=== PATIENT | female | born 1965 | race Caucasian/White ===

== ENCOUNTER 2017-05-28 14:43 | Emergency (ER) | payer MEDICAID ==
[2017-05-28] MEDS ORDERED: Sodium Chloride 0.9% 10 ML Syringe FLUSH PRN (15:24)
--- NOTE | 2017-05-28 15:34 | EDM.PDOC ---
ED HPI GENERAL MEDICAL PROBLEM - General Chief Complaint: Abdominal Pain Stated Complaint: ABDOMINAL PAIN/NAUSEA Time Seen by Provider: 05/28/17 15:08 Source of Information: Reports: Patient History Limitations: Reports: No Limitations - History of Present Illness INITIAL COMMENTS - FREE TEXT/NARRATIVE: 52 year old female presents for evaluation and treatment of abdominal pain and shortness of breath. Patient reports she's been coughing, wheezing short of breath since starting April 21 around when she started a new job. Patient reports that she has been around dogs and urine feces frequently at her apartment. Patient also report she has been around black mold. Patient reports that she was seen in the clinic in [place] on she was prescribed an albuterol inhaler and a Z-Matthew. Her symptoms improved with the medications but once her Z-Matthew was over her symptoms return. On May 21 she called the ambulance. She was evaluated and was told that she had pneumonia in her left lobe. She was not transported at that time. Patient questions if she still has pneumonia. She denies any chest pain. She states that she feels she cannot get air out. Reports over the last 3 days she has felt weak in her normal legs have felt "wobbly" and "shaky." Patient is a current every day smoker. Smokes a 1 pack a day. Patient also reports upper abdominal pain located in the right upper quadrant. This is been going on for the last couple days. She reports nausea and vomiting as well as left days. Reports 3 episodes of emesis. Reports diarrhea on-and-off states but has this nearly every day. She is unsure she's had any fevers as she has not taken her temperature. She also reports chills. Patient also complains of low back pain. Past medical history of GERD, anxiety, depression and hypertension. Right Upper Abdominal Pain Score (Numeric/FACES): 3 - Related Data Allergies Allergy/AdvReac Type Severity Reaction Status Date / Time shellfish derived Allergy Hives Verified 05/28/17 14:57 Home Meds: Home Meds Albuterol [IJP: Ventolin HFA] 2 puff INH Q4HR PRN #18 gm 05/28/17 [Rx] Omeprazole 20 mg PO ONETIME #30 cap.sr 05/28/17 [Rx] Past Medical History - Past Health History Medical/Surgical History: Denies Medical/Surgical History Cardiovascular History: Reports: Hypertension Other Cardiovascular History: HTN only for 1 year- resolved Gastrointestinal History: Reports: GERD Other Gastrointestinal History: Acid reflux- resolved Psychiatric History: Reports: Anxiety, Depression Other Psychiatric History: Anxiety/depression- resolved/no longer medicated for Social & Family History - Family History Family Medical History: Noncontributory - Tobacco Use Smoking Status *Q: Current Every Day Smoker Years of Tobacco use: 25 Packs/Tins Daily: 1 - Recreational Drug Use Recreational Drug Use: No ED ROS GENERAL - Review of Systems Review Of Systems: See Below Constitutional: Reports: Chills, Decreased Appetite. Denies: Fever ( questionable) HEENT: Reports: Throat Pain. Denies: Ear Pain Respiratory: Reports: Shortness of Breath, Cough Cardiovascular: Denies: Chest Pain GI/Abdominal: Reports: Abdominal Pain (RUQ), Diarrhea, Nausea, Vomiting (x3) : Reports: No Symptoms Musculoskeletal: Reports: Back Pain (low back) Neurological: Reports: Headache ED EXAM, GI/ABD - Physical Exam Exam: See Below Exam Limited By: No Limitations General Appearance: Alert, WD/WN, No Apparent Distress Ears: Normal External Exam, Normal Canal, Hearing Grossly Normal, Normal TMs Nose: Normal Inspection Throat/Mouth: Normal Inspection, Normal Lips, Normal Voice, No Airway Compromise Neck: Normal Inspection, Supple Respiratory/Chest: No Respiratory Distress, Lungs Clear, Normal Breath Sounds Cardiovascular: Normal Peripheral Pulses, Regular Rate, Rhythm, No Murmur GI/Abdominal Exam: Normal Bowel Sounds, Tender (RUQ, epigastric) Neurological: Alert, Oriented, Normal Cognition Psychiatric: Normal Affect, Normal Mood Skin Exam: Warm, Dry, Normal Color Course - Vital Signs Last Recorded V/S: Last Vital Signs Temp 36.6 C 05/28/17 14:49 Pulse 92 05/28/17 18:50 Resp 16 05/28/17 18:50 BP 151/107 H 05/28/17 18:50 Pulse Ox 96 05/28/17 18:50 - Orders/Labs/Meds Labs: Laboratory Tests 05/28/17 05/28/17 05/28/17 Range/Units 15:35 15:45 15:45 WBC 4.94 (3.98-10.04) K/mm3 RBC 4.77 (3.98-5.22) M/mm3 Hgb 14.7 (11.2-15.7) gm/L Hct 44.1 (34.1-44.9) % MCV 92.5 (79.4-94.8) fl MCH 30.8 (25.6-32.2) pg MCHC 33.3 (32.2-35.5) g/dl RDW Std Deviation 45.1 (36.4-46.3) fL Plt Count 137 L (182-369) K/mm3 MPV 10.7 (9.4-12.3) fl Neutrophils % (Manual) 67 H (40-60) % Band Neutrophils % 0 (0-10) % Lymphocytes % (Manual) 29 (20-40) % Atypical Lymphs % 0 % Monocytes % (Manual) 4 (2-10) % Eosinophils % (Manual) 0 L (0.7-5.8) % Basophils % (Manual) 0 L (0.1-1.2) Platelet Estimate Adequate RBC Morph Comment Normal Sodium 144 (136-145) mEq/L Potassium 3.4 L (3.5-5.1) mEq/L Chloride 104 (98-107) mEq/L Carbon Dioxide 24 (21-32) mEq/L Anion Gap 19.4 H (5-15) BUN 7 (7-18) mg/dL Creatinine 0.8 (0.55-1.02) mg/dL Est Cr Clr Drug Dosing 74.86 mL/min Estimated GFR (MDRD) > 60 (>60) mL/min BUN/Creatinine Ratio 8.8 L (14-18) Glucose 103 (74-106) mg/dL Calcium 9.8 (8.5-10.1) mg/dL Total Bilirubin 0.3 (0.2-1.0) mg/dL AST 163 H (15-37) U/L ALT 172 H (14-59) U/L Alkaline Phosphatase 96 (46-116) U/L C-Reactive Protein < 0.2 (<1.0) mg/dL Total Protein 8.0 (6.4-8.2) g/dl Albumin 4.1 (3.4-5.0) g/dl Globulin 3.9 gm/dL Albumin/Globulin Ratio 1.1 (1-2) Lipase 81 (73-393) U/L TSH 3rd Generation (0.358-3.74) uIU/mL Urine Color Light yellow (Yellow) Urine Appearance Clear (Clear) Urine pH 6.5 (5.0-8.0) Ur Specific [place] 1.010 (1.005-1.030) Urine Protein Negative (Negative) Urine Glucose (UA) Negative (Negative) Urine Ketones Negative (Negative) Urine Occult Blood 1+ H (Negative) Urine Nitrite Negative (Negative) Urine Bilirubin Negative (Negative) Urine Urobilinogen 0.2 (0.2-1.0) Ur Leukocyte Esterase Negative (Negative) Urine RBC 0-5 (0-5) /hpf Urine WBC 0-5 (0-5) /hpf Ur Epithelial Cells 0-5 (0-5) /hpf Urine Bacteria Rare (FEW) /hpf Urine Mucus Not seen (FEW) /hpf Ethyl Alcohol 0.08 (0.00) gm% 05/28/17 Range/Units 15:45 WBC (3.98-10.04) K/mm3 RBC (3.98-5.22) M/mm3 Hgb (11.2-15.7) gm/L Hct (34.1-44.9) % MCV (79.4-94.8) fl MCH (25.6-32.2) pg MCHC (32.2-35.5) g/dl RDW Std Deviation (36.4-46.3) fL Plt Count (182-369) K/mm3 MPV (9.4-12.3) fl Neutrophils % (Manual) (40-60) % Band Neutrophils % (0-10) % Lymphocytes % (Manual) (20-40) % Atypical Lymphs % % Monocytes % (Manual) (2-10) % Eosinophils % (Manual) (0.7-5.8) % Basophils % (Manual) (0.1-1.2) Platelet Estimate RBC Morph Comment Sodium (136-145) mEq/L Potassium (3.5-5.1) mEq/L Chloride (98-107) mEq/L Carbon Dioxide (21-32) mEq/L Anion Gap (5-15) BUN (7-18) mg/dL Creatinine (0.55-1.02) mg/dL Est Cr Clr Drug Dosing mL/min Estimated GFR (MDRD) (>60) mL/min BUN/Creatinine Ratio (14-18) Glucose (74-106) mg/dL Calcium (8.5-10.1) mg/dL Total Bilirubin (0.2-1.0) mg/dL AST (15-37) U/L ALT (14-59) U/L Alkaline Phosphatase (46-116) U/L C-Reactive Protein (<1.0) mg/dL Total Protein (6.4-8.2) g/dl Albumin (3.4-5.0) g/dl Globulin gm/dL Albumin/Globulin Ratio (1-2) Lipase (73-393) U/L TSH 3rd Generation 2.594 (0.358-3.74) uIU/mL Urine Color (Yellow) Urine Appearance (Clear) Urine pH (5.0-8.0) Ur Specific [place] (1.005-1.030) Urine Protein (Negative) Urine Glucose (UA) (Negative) Urine Ketones (Negative) Urine Occult Blood (Negative) Urine Nitrite (Negative) Urine Bilirubin (Negative) Urine Urobilinogen (0.2-1.0) Ur Leukocyte Esterase (Negative) Urine RBC (0-5) /hpf Urine WBC (0-5) /hpf Ur Epithelial Cells (0-5) /hpf Urine Bacteria (FEW) /hpf Urine Mucus (FEW) /hpf Ethyl Alcohol (0.00) gm% Meds: Medications Discontinued Medications Generic Name Dose Route Start Last Admin Trade Name Freq PRN Reason Stop Dose Admin Al Hydroxide/Mg Hydroxide 30 0 ml 05/28/17 18:23 05/28/17 18:53 ml/ Lidocaine HCl 15 ml PO 05/28/17 18:24 45 ml ONETIME ONE Administration Famotidine 20 mg 05/28/17 18:23 05/28/17 18:50 Pepcid IVPUSH 05/28/17 18:24 20 mg ONETIME ONE Administration Nicotine 21 mg 05/28/17 16:37 05/28/17 16:46 Habitrol TRDERM 05/28/17 16:38 21 mg ONETIME ONE Administration Sodium Chloride 10 ml 05/28/17 15:24 05/28/17 15:45 Saline Flush FLUSH 10 ml ASDIRECTED PRN Administration Keep Vein Open - Radiology Interpretation Free Text/Narrative:: Chest: Two views of the chest were obtained. Comparison: No prior study. Heart size and mediastinum are normal. Lungs are clear. Bony structures show minimal scoliosis within the spine. Impression: 1. Nothing acute is identified on two-view chest x-ray. - Re-Assessments/Exams Free Text/Narrative Re-Assessment/Exam: 05/28/17 16:40 Patient would like a nicotine patch. Smokes a pack a day. 05/28/17 18:24 Influenza returned negative. Strep returned negative. I reviewed the labs and imaging with the patinet. I feel the abdominal pain is likely from reflux. I will give her GI cocktail and Pepcid here in the ER. I will and plan start her on something like a PPI. I feel her shortness of breath is likely COPD. I educated her I cannot confirm this suspicion. She needs further testing such as pulmonary function test. 05/28/17 19:40 Pain is improved with the GI cocktail and Pepcid. She is anxious to go home. We will discharge her home at this time. Discharge instructions as documented. Departure - Departure Time of Disposition: 19:44 Disposition: Home, Self-Care 01 Condition: Fair Clinical Impression: Shortness of breath, GERD (gastroesophageal reflux disease) - Discharge Information Prescriptions: Albuterol [IJP: Ventolin HFA] 2 puff INH Q4HR PRN #18 gm PRN Reason: Shortness Of Breath Omeprazole 20 mg PO ONETIME #30 cap.sr Instructions: Shortness of Breath, [id number], Gastroesophageal Reflux Disease, Adult Referrals: PCP,None [Primary Care Provider] - Forms: ED Department Discharge Additional Instructions: Take the omeprazole 1 cap daily. Take the albuterol 1-2 puffs every 4-6 hours as needed for shortness of breath. We recommend that you stop drinking alcohol. you will have a happier and healthier life if you stopped drinking alcohol. Alcohol also worked since reflux. Also recommended to stop smoking. Smoking is the only way to prevent COPD. It is very possible that you have early COPD and will require further testing to confirm this. Follow-up with Matty Larios or Rabia Rapp at the [facility] in 2-3 weeks. Please return to the ER if your symptoms change or worsen.
[2017-05-28] MEDS ORDERED: Nicotine 21 MG/24 Hr Patch TRDERM ONE (16:37)
--- NOTE | 2017-05-28 17:22 | CR ---
Chest: Two views of the chest were obtained. Comparison: No prior study. Heart size and mediastinum are normal. Lungs are clear. Bony structures show minimal scoliosis within the spine. Impression: 1. Nothing acute is identified on two-view chest x-ray. Diagnostic code #1
[2017-05-28] MEDS ORDERED: Famotidine 20 MG/2 ML SDV IVPUSH ONE (18:23)
[2017-05-28] MEDS ORDERED: Alum Hydrox/Mag Hydrox/Simeth 30 ML, Lidocaine 2% 15 ML PO ONE ×2 (18:23)
== END 2017-05-28 20:00 | disposition home or self-care (01) ==
LOC: JD.ED 14:43
DX: K21.9 Gastro-esophageal reflux disease without esophagitis (principal); R06.02 Shortness of breath; I10 Essential (primary) hypertension; F17.210 Nicotine dependence, cigarettes, uncomplicated; Z91.013 Allergy to seafood
CPT/HCPCS: 36415; 71046; 80053; 81001; 83690; 84443; 85025; 86140; 87081; 87430; 87804; 96374; 99284; A9270; G0480; J7050

== ENCOUNTER 2017-07-07 01:11 | Emergency (ER) | payer MEDICAID ==
--- NOTE | 2017-07-07 01:38 | EDM.PDOC ---
ED HPI GENERAL MEDICAL PROBLEM - General Chief Complaint: Cardiovascular Problem Stated Complaint: [facility] Time Seen by Provider: 07/07/17 01:21 Source of Information: Reports: Patient, EMS History Limitations: Reports: No Limitations - History of Present Illness INITIAL COMMENTS - FREE TEXT/NARRATIVE: This is a 52-year-old female. She was recently placed on some lisinopril 20 mg by her physician because of elevated blood pressure. Apparently the lisinopril did not help and so she was placed on some hydrochlorothiazide. The patient states that she takes a full 25 mg if her blood pressure is up in the morning but only 12.5 mg of the blood pressure is low in the morning. Apparently sometime this evening the boyfriend noted she had a blood pressure of 77. She was brought here to the ER for evaluation. When she arrived her blood pressure was 108/69. She states she didn't realize that the hydrochlorothiazide was a fluid pill and she hasn't noticed urinating a lot. She denies any colds or coughs no fever no chills. She did vomit in the back of the ambulance but she is feeling fine now. She denies any other acute symptoms. - Related Data Allergies Allergy/AdvReac Type Severity Reaction Status Date / Time shellfish derived Allergy Hives Verified 07/07/17 01:21 tuberculin,PPD,multi-puncture Allergy Difficulty Verified 07/07/17 01:22 Breathing Home Meds: Home Meds Albuterol [IJP: Ventolin HFA] 2 puff INH DAILY PRN 07/07/17 [History] HCTZ/Propranolol [Inderal HCT 25-40 MG] 25 mg PO DAILY 07/07/17 [History] Lisinopril [Prinivil] 20 mg PO DAILY 07/07/17 [History] Montelukast Sodium 10 mg PO BEDTIME 07/07/17 [History] Omeprazole 20 mg PO DAILY 07/07/17 [History] Sucralfate [Carafate] 1 gm PO QID 07/07/17 [History] buPROPion [buPROPion XL] 150 mg PO DAILY 07/07/17 [History] Past Medical History - Past Health History Medical/Surgical History: Denies Medical/Surgical History Cardiovascular History: Reports: Hypertension Other Cardiovascular History: HTN only for 1 year- resolved Respiratory History: Reports: COPD Gastrointestinal History: Reports: GERD Other Gastrointestinal History: Acid reflux- resolved 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, 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: Polycystic Ovaries Psychiatric History: Reports: Anxiety, Depression Other Psychiatric History: Anxiety/depression Social & Family History - Family History Family Medical History: Noncontributory - Tobacco Use Smoking Status *Q: Current Every Day Smoker Years of Tobacco use: 25 Packs/Tins Daily: 0.5 Used Tobacco, but Quit: No - Caffeine Use Caffeine Use: Reports: None - Recreational Drug Use Recreational Drug Use: No ED ROS GENERAL - Review of Systems Review Of Systems: See Below Constitutional: Denies: Fever, Chills HEENT: Reports: No Symptoms Respiratory: Denies: Shortness of Breath, Cough Cardiovascular: Denies: Chest Pain Endocrine: Reports: No Symptoms GI/Abdominal: Reports: Nausea, Vomiting. Denies: Abdominal Pain : Reports: No Symptoms Musculoskeletal: Reports: No Symptoms Skin: Reports: No Symptoms Neurological: Reports: No Symptoms Psychiatric: Reports: No Symptoms Hematologic/Lymphatic: Reports: No Symptoms ED EXAM, GENERAL - Physical Exam Exam: See Below Exam Limited By: No Limitations General Appearance: Alert, WD/WN, No Apparent Distress Eye Exam: Bilateral Eye: Normal Inspection Ears: Normal External Exam Nose: Normal Inspection Throat/Mouth: Normal Inspection, Normal Lips, Normal Oropharynx, Normal Voice, No Airway Compromise, Other (Mucous membranes are dry) Head: Normocephalic Neck: Supple Respiratory/Chest: No Respiratory Distress, Lungs Clear, Normal Breath Sounds Cardiovascular: Regular Rate, Rhythm, No Murmur GI/Abdominal: Soft Back Exam: Full Range of Motion Extremities: Normal Inspection, Normal Range of Motion Neurological: Alert, Oriented, Normal Cognition Psychiatric: Normal Affect, Normal Mood Skin Exam: Warm, Dry Course - Vital Signs Last Recorded V/S: Last Vital Signs Temp 97.1 F 07/07/17 01:15 Pulse 76 07/07/17 01:15 Resp 18 07/07/17 01:15 BP 108/69 07/07/17 01:15 Pulse Ox 99 07/07/17 01:15 Orthostatic Blood Pressure [ 83/50 Standing] Orthostatic Blood Pressure [ 98/62 Sitting] Orthostatic Blood Pressure [ 86/57 Supine] - Orders/Labs/Meds Orders: Active Orders 24 hr Category Date Time Status Orthostatic Vital Signs [RC] ASDIRECTED Care 07/07/17 01:44 Active Orthostatic Vital Signs [RC] ASDIRECTED Care 07/07/17 04:29 Active Sodium Chloride 0.9% [Normal Saline] 1,000 ml Med 07/07/17 01:45 Active IV ASDIRECTED Medication Orders Sodium Chloride (Normal Saline) 1,000 mls @ 1,000 mls/hr IV ASDIRECTED FAVIAN Last Admin: 07/07/17 04:23 Dose: 1,000 mls/hr Infusion: 07/07/17 03:51 Dose: 1,000 mls/hr Admin: 07/07/17 02:51 Dose: 1,000 mls/hr Infusion: 07/07/17 02:41 Dose: 1,000 mls/hr Admin: 07/07/17 01:41 Dose: 1,000 mls/hr Labs: Laboratory Tests 07/07/17 07/07/17 Range/Units 01:22 01:22 WBC 7.83 (3.98-10.04) K/mm3 RBC 4.34 (3.98-5.22) M/mm3 Hgb 13.9 (11.2-15.7) gm/L Hct 40.2 (34.1-44.9) % MCV 92.6 (79.4-94.8) fl MCH 32.0 (25.6-32.2) pg MCHC 34.6 (32.2-35.5) g/dl RDW Std Deviation 45.2 (36.4-46.3) fL Plt Count 119 L (182-369) K/mm3 MPV 11.0 (9.4-12.3) fl Neut % (Auto) 61.5 (34.0-71.1) % Lymph % (Auto) 28.5 (19.3-51.7) % [place] % (Auto) 9.5 (4.7-12.5) % Eos % (Auto) 0.3 L (0.7-5.8) Baso % (Auto) 0.1 (0.1-1.2) % Neut # (Auto) 4.82 (1.56-6.13) K/mm3 Lymph # (Auto) 2.23 (1.18-3.74) K/mm3 [place] # (Auto) 0.74 H (0.24-0.36) K/mm3 Eos # (Auto) 0.02 L (0.04-0.36) K/mm3 Baso # (Auto) 0.01 (0.01-0.08) K/mm3 Sodium 126 L (136-145) mEq/L Potassium 4.3 (3.5-5.1) mEq/L Chloride 87 L (98-107) mEq/L Carbon Dioxide 22 (21-32) mEq/L Anion Gap 21.3 H (5-15) BUN 34 H (7-18) mg/dL Creatinine 2.7 H (0.55-1.02) mg/dL Est Cr Clr Drug Dosing 23.08 mL/min Estimated GFR (MDRD) 19 (>60) mL/min BUN/Creatinine Ratio 12.6 L (14-18) Glucose 103 (74-106) mg/dL Calcium 11.0 H (8.5-10.1) mg/dL Total Bilirubin 0.5 (0.2-1.0) mg/dL AST 143 H (15-37) U/L ALT 150 H (14-59) U/L Alkaline Phosphatase 92 (46-116) U/L Total Protein 8.2 (6.4-8.2) g/dl Albumin 4.3 (3.4-5.0) g/dl Globulin 3.9 gm/dL Albumin/Globulin Ratio 1.1 (1-2) Ethyl Alcohol 0.30 (0.00) gm% Meds: Medications Generic Name Dose Route Start Last Admin Trade Name Freq PRN Reason Stop Dose Admin Sodium Chloride 1,000 mls @ 1,000 mls/hr 07/07/17 01:45 07/07/17 04:23 Normal Saline IV 1,000 mls/hr ASDIRECTED FAVIAN Administration Discontinued Medications Generic Name Dose Route Start Last Admin Trade Name Freq PRN Reason Stop Dose Admin Sodium Chloride 1,000 mls @ 1,000 mls/hr 07/07/17 02:44 07/07/17 04:24 Normal Saline IV 07/07/17 03:43 Not Given ASDIRECTED ONE - Re-Assessments/Exams Free Text/Narrative Re-Assessment/Exam: 07/07/17 01:41 While she was here we did orthostatic vital signs when she first arrived. Lying down her blood pressure was 83/55 with a pulse rate of 73, sitting was 93/54 with a pulse rate of 77 and standing it was 87/60 with a pulse rate of 87. 07/07/17 04:23 Patient has received 2 L of fluids and still has not urinated and still has low blood pressures lying sitting and standing but the heart rate went only from 96- 99 from lying to standing. We will give her a third liter of fluids. 07/07/17 05:23 I have provided this patient a third liter of fluids. She states she feels much better and she got up and went to the bathroom with no difficulty and denies any dizziness or feeling lightheaded. She wants to go home. I rechecked her orthostatic vital signs lying down the blood pressure was 111/66 with a heart rate of 84, sitting it was 94/58 with a heart rate of 94 and standing it dropped to 86/64 with a heart rate of 100. During this time she denied any feelings of lightheadedness no dizziness and felt fine. I'm concerned about giving her a fourth liter but I have encouraged her to start drinking more fluids and stop drinking alcohol and stop her blood pressure medications at this time. She is to follow-up with her family doctor this week for recheck and reassessment of whether she needs blood pressure medications. Departure - Departure Time of Disposition: 05:24 Disposition: Home, Self-Care 01 Condition: Fair Clinical Impression: Dehydration, Orthostatic hypotension Alcohol intoxication Qualifiers: Complication of substance-induced condition: uncomplicated Qualified Code(s): F10.920 - Alcohol use, unspecified with intoxication, uncomplicated Referrals: PCP,None [Primary Care Provider] - Forms: ED Department Discharge Additional Instructions: You must continue to drink lots of water and juice over the next 24 hours since you were severely dehydrated, gentle activity today and over the weekend with no strenuous or prolonged activity, stop your blood pressure medications both of them, follow up with your doctor this week for reassessment of whether you will need the blood pressure medications, return to the ER if needed. - My Orders Last 24 Hours: My Active Orders 07/07/17 01:44 Orthostatic Vital Signs [RC] ASDIRECTED 07/07/17 01:45 Sodium Chloride 0.9% [Normal Saline] 1,000 ml IV ASDIRECTED 07/07/17 04:29 Orthostatic Vital Signs [RC] ASDIRECTED - Assessment/Plan Last 24 Hours: My Active Orders 07/07/17 01:44 Orthostatic Vital Signs [RC] ASDIRECTED 07/07/17 01:45 Sodium Chloride 0.9% [Normal Saline] 1,000 ml IV ASDIRECTED 07/07/17 04:29 Orthostatic Vital Signs [RC] ASDIRECTED
[2017-07-07] MEDS: Sodium Chloride 0.9% 1,000 ML IV SCH ×3 (01:41→04:23)
[2017-07-07] MEDS ORDERED: Sodium Chloride 0.9% 1,000 ML IV ONE (02:44)
== END 2017-07-07 06:30 | disposition home or self-care (01) ==
LOC: JD.ED 01:11
DX: I95.1 Orthostatic hypotension (principal); E86.0 Dehydration; F10.120 Alcohol abuse with intoxication, uncomplicated; Y90.0 Blood alcohol level of less than 20 mg/100 ml; J44.9 Chronic obstructive pulmonary disease, unspecified; K21.9 Gastro-esophageal reflux disease without esophagitis; F41.9 Anxiety disorder, unspecified; F32.9 Major depressive disorder, single episode, unspecified; F17.210 Nicotine dependence, cigarettes, uncomplicated; Z88.8 Allergy status to other drugs, medicaments and biological substances; Z79.899 Other long term (current) drug therapy; Z91.013 Allergy to seafood
CPT/HCPCS: 36415; 80053; 85025; 96360; 96361; 99285; G0480; J7040; 99283

== ENCOUNTER 2017-07-21 20:20 | Emergency (ER) | payer MEDICAID ==
[2017-07-21] MEDS ORDERED: Sodium Chloride 0.9% 1,000 ML IV ONE (22:01)
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
[2017-07-22] MEDS ORDERED: Sodium Chloride 0.9% 10 ML Syringe FLUSH PRN ×2 (01:26)
[2017-07-22] MEDS ORDERED: Iopamidol 755 Mg/ML 100 ML Bottle IVPUSH ONE ×2 (01:26)
[2017-07-22] MEDS ORDERED: Sodium Chloride 0.9% 100 ML IV SCH ×2 (01:30)
[2017-07-22] MEDS ORDERED: Sodium Chloride 0.9% 1,000 ML IV SCH (01:30)
--- NOTE | 2017-07-22 16:52 | CT ---
CT chest Technique: Multiple axial sections through the chest were obtained. Study performed as a pulmonary angiogram protocol and intravenous contrast was therefore utilized. Findings: Pulmonary arteries are well-opacified. No filling defects are seen to indicate pulmonary embolism. Fatty infiltration is seen throughout the liver. Mediastinum and hilar regions show no adenopathy or mass. Mild coronary artery calcification is seen. Mediastinum and hilar regions show no adenopathy or mass. No axillary adenopathy is seen. Lungs show no acute parenchymal change. Impression: 1. No findings of pulmonary embolism. 2. Severe fatty infiltration throughout the liver. 3. Other incidental findings as noted above. Diagnostic code #3 Agree with preliminary report issued by [facility] ([facility] preliminary report dictated on 07/22/17, 3:22 AM Central Time)
--- NOTE | 2017-07-22 16:52 | CR ---
Chest: Two views of the chest were obtained. Comparison: Prior chest x-ray of 05/28/17. Heart size is normal. Mild tortuosity of the thoracic aorta is seen. Lungs are clear. Bony structures are within normal limits for the patient's age. Impression: 1. Nothing acute is identified on two-view chest x-ray. Diagnostic code #1
== END 2017-07-22 04:25 | disposition home or self-care (01) ==
LOC: JD.ED 20:20
DX: F10.20 Alcohol dependence, uncomplicated (principal); I95.1 Orthostatic hypotension; D72.819 Decreased white blood cell count, unspecified; D69.6 Thrombocytopenia, unspecified; R03.0 Elevated blood-pressure reading, without diagnosis of hypertension; R74.0 Nonspecific elevation of levels of transaminase and lactic acid dehydrogenase [LDH]; K21.9 Gastro-esophageal reflux disease without esophagitis; F32.9 Major depressive disorder, single episode, unspecified; F17.210 Nicotine dependence, cigarettes, uncomplicated; Z91.013 Allergy to seafood; Z79.899 Other long term (current) drug therapy
CPT/HCPCS: 36415; 71046; 71275; 80053; 84484; 85025; 85379; 85610; 85730; 93005; 96360; 96361; 99285; J7030; J7040; J7050; Q9967; 93010; 99284-25

== ENCOUNTER 2018-05-07 00:48 | Emergency (ER) | payer MEDICAID ==
--- NOTE | 2018-05-07 03:26 | ER ---
REASON FOR EMERGENCY ROOM VISIT: For medical clearance for nursing home. HISTORY OF PRESENT ILLNESS: This 53-year-old woman was brought in by law enforcement officers for medical clearance for her to be kept in nursing home. Apparently, she was found to be intoxicated almost to the point of being unarousable. She was picked up by police officers and apparently resisted to the extent that they felt that she should be incarcerated overnight. She does have a history of multiple admissions for alcohol detox and alcohol rehab programs in the past with multiple relapses. She has also had alcohol withdrawal seizures in the past. She was brought in, combative, and yelling profanities, etc. She denies any past medical history, but her medical record indicates that she has history of hypertension, COPD, GERD, urinary retention, and polycystic ovaries as well as a prior history of addiction, anxiety, and depression. She denies any recent illicit drug use such as marijuana, opiates, or cocaine. CURRENT MEDICATIONS: Reviewed. See electronic medical record. PHYSICAL EXAMINATION: GENERAL: She is combative and resisting any attempts to examine her at this time. VITAL SIGNS: She is afebrile, pulse rate is 104, blood pressure 110/91, respiratory rate 18, O2 saturations 98%. HEENT: Her eyes are bloodshot. She has the odor of alcohol on her breath. She does focus and answers questions reasonably appropriately, although she is not being truthful. No evidence of external trauma. NECK: Supple and nontender. CHEST: Clear to auscultation. CARDIAC: Regular rate without murmur. ABDOMEN: Soft. EXTREMITIES: No evidence of trauma. No tenderness or pain. IMPRESSION: Alcohol intoxication. PLAN: She is medically cleared to be transported to nursing home. MMODAL /[id number]
== END 2018-05-07 01:03 ==
LOC: JD.ED 00:48
DX: F10.929 Alcohol use, unspecified with intoxication, unspecified (principal); Z02.89 Encounter for other administrative examinations; Y90.7 Blood alcohol level of 200-239 mg/100 ml
CPT/HCPCS: 99282; 99284

== ENCOUNTER 2018-07-06 09:02 | Inpatient (IN) | payer MEDICAID ==
--- NOTE | 2018-07-06 09:29 | EDM.PDOCBH ---
ED HPI GENERAL MEDICAL PROBLEM - General Chief Complaint: Drug or Alcohol Abuse Stated Complaint: DETOX Time Seen by Provider: 07/06/18 09:28 Source of Information: Reports: Patient, RN Notes Reviewed - History of Present Illness INITIAL COMMENTS - FREE TEXT/NARRATIVE: Patient states she has been drinking whiskey for about a month, states she had been dry for awhile before that. Now if she doesn't drink she gets the shakes, feels sick so keeps drinking to avoid those sx. Looking for help with detox. Has been through treatment many times before. Went through a medical detox at this hospital about 4 months ago. She states that when she does go through withdrawal she experiences hallucinations, does go into "DVT's which is why she keeps drinking and now her at this time to get help to stop. Treatments DERMATOLOGY SALES REPRESENTATIVE: Reports: Other (see below) Other Treatments DERMATOLOGY SALES REPRESENTATIVE: ETOH Right Lower Abdomen Pain Score (Numeric/FACES): 6 - Related Data Allergies Allergy/AdvReac Type Severity Reaction Status Date / Time shellfish derived Allergy Hives Verified 07/06/18 09:28 tuberculin,PPD,multi-puncture Allergy Difficulty Verified 07/06/18 09:28 Breathing Home Meds: Home Meds Lisinopril [Prinivil] 20 mg PO DAILY 07/07/17 [History] Montelukast Sodium 10 mg PO BEDTIME 07/07/17 [History] Omeprazole 20 mg PO DAILY 07/07/17 [History] Sucralfate [Carafate] 1 gm PO QID PRN 07/07/17 [History] Past Medical History - Past Health History Medical/Surgical History: Denies Medical/Surgical History Cardiovascular History: Reports: Hypertension Other Cardiovascular History: HTN only for 1 year- resolved Respiratory History: Reports: COPD Gastrointestinal History: Reports: GERD Other Gastrointestinal History: Acid reflux- resolved 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, 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: Reports: Polycystic Ovaries Musculoskeletal History: Reports: Arthritis Psychiatric History: Reports: Addiction, Anxiety, Depression Other Psychiatric History: Anxiety/depression Social & Family History - Family History Family Medical History: Noncontributory - Caffeine Use Caffeine Use: Reports: None - Living Situation & Occupation Living situation: Reports: , with Significant Other, Other (with 2 friends) Occupation: Unemployed ED ROS GENERAL - Review of Systems Review Of Systems: See Below Constitutional: Denies: Fever, Chills, Diaphoresis HEENT: Denies: Throat Pain Respiratory: Denies: Shortness of Breath Cardiovascular: Denies: Chest Pain GI/Abdominal: Reports: Abdominal Pain (mild intermitent), Diarrhea, Decreased Appetite. Denies: Vomiting Musculoskeletal: Reports: No Symptoms Skin: Reports: No Symptoms Neurological: Reports: Dizziness, Other (tremor when not drinking). Denies: Trouble Speaking, Difficulty Walking, Weakness ED EXAM, BEHAVIORAL HEALTH - Physical Exam Exam: See Below General Appearance: Alert, Mild Distress, Other (mild tremor) Eye Exam: Bilateral Eye: PERRL Throat/Mouth: Normal Inspection, Normal Oropharynx Head: Atraumatic. No: Facial Swelling Neck: Normal Inspection, Supple Respiratory/Chest: No Respiratory Distress, Lungs Clear, Normal Breath Sounds Cardiovascular: Regular Rate, Rhythm GI/Abdominal: Soft, Non-Tender. No: Guarding Neurological: Alert, No Motor/Sensory Deficits, Tremor (mild bilat) Skin Exam: Warm, Dry, Normal color COURSE, BEHAVIORAL HEALTH COMP - Course Vital Signs: Last Vital Signs Temp 97.6 F 07/06/18 09:19 Pulse 95 07/06/18 09:19 Resp 14 07/06/18 09:19 BP 159/111 H 07/06/18 09:19 Pulse Ox 98 07/06/18 09:19 Orders, Labs, Meds: Active Orders 24 hr Category Date Time Status Peripheral IV Care [RC] . DIRECTED Care 07/06/18 09:36 Active Sodium Chloride 0.9% [Normal Saline] 1,000 ml Med 07/06/18 09:45 Active IV ONETIME Sodium Chloride 0.9% [Normal Saline] 1,000 ml Med 07/06/18 13:15 Active IV ONETIME Sodium Chloride 0.9% [Saline Flush] Med 07/06/18 09:36 Active 10 ml FLUSH ASDIRECTED PRN Peripheral IV Insertion Adult [OM.PC] Stat Oth 07/06/18 09:35 Ordered Medication Orders Sodium Chloride (Normal Saline) 1,000 mls @ 999 mls/hr IV ONETIME FAVIAN Last Admin: 07/06/18 09:54 Dose: 999 mls/hr Sodium Chloride (Normal Saline) 1,000 mls @ 999 mls/hr IV ONETIME FAVIAN Sodium Chloride (Saline Flush) 10 ml FLUSH ASDIRECTED PRN PRN Reason: Keep Vein Open Last Admin: 07/06/18 09:54 Dose: 10 ml Laboratory Tests 07/06/18 07/06/18 Range/Units 09:50 09:50 WBC 2.83 L (3.98-10.04) K/mm3 RBC 4.72 (3.98-5.22) M/mm3 Hgb 14.1 (11.2-15.7) gm/L Hct 42.6 (34.1-44.9) % MCV 90.3 (79.4-94.8) fl MCH 29.9 (25.6-32.2) pg MCHC 33.1 (32.2-35.5) g/dl RDW Std Deviation 47.2 H (36.4-46.3) fL Plt Count 56 L (182-369) K/mm3 MPV 11.1 (9.4-12.3) fl Neut % (Auto) 67.8 (34.0-71.1) % Lymph % (Auto) 19.4 (19.3-51.7) % [place] % (Auto) 11.3 (4.7-12.5) % Eos % (Auto) 0.4 L (0.7-5.8) Baso % (Auto) 1.1 (0.1-1.2) % Neut # (Auto) 1.92 (1.56-6.13) K/mm3 Lymph # (Auto) 0.55 L (1.18-3.74) K/mm3 [place] # (Auto) 0.32 (0.24-0.36) K/mm3 Eos # (Auto) 0.01 L (0.04-0.36) K/mm3 Baso # (Auto) 0.03 (0.01-0.08) K/mm3 Manual Slide Review Abnormal smear Sodium 139 (136-145) mEq/L Potassium 3.7 (3.5-5.1) mEq/L Chloride 100 (98-107) mEq/L Carbon Dioxide 25 (21-32) mEq/L Anion Gap 17.7 H (5-15) BUN 8 (7-18) mg/dL Creatinine 0.8 (0.55-1.02) mg/dL Est Cr Clr Drug Dosing 74.02 mL/min Estimated GFR (MDRD) > 60 (>60) mL/min BUN/Creatinine Ratio 10.0 L (14-18) Glucose 146 H (74-106) mg/dL Calcium 9.0 (8.5-10.1) mg/dL Total Bilirubin 0.7 (0.2-1.0) mg/dL AST 208 H (15-37) U/L ALT 193 H (14-59) U/L Alkaline Phosphatase 111 (46-116) U/L Total Protein 7.9 (6.4-8.2) g/dl Albumin 4.2 (3.4-5.0) g/dl Globulin 3.7 gm/dL Albumin/Globulin Ratio 1.1 (1-2) Ethyl Alcohol 0.09 (0.00) gm% Medications Generic Name Dose Route Start Last Admin Trade Name Freq PRN Reason Stop Dose Admin Sodium Chloride 1,000 mls @ 999 mls/hr 07/06/18 09:45 07/06/18 09:54 Normal Saline IV 999 mls/hr ONETIME FAVIAN Administration Sodium Chloride 1,000 mls @ 999 mls/hr 07/06/18 13:15 Normal Saline IV ONETIME FAVIAN Sodium Chloride 10 ml 07/06/18 09:36 07/06/18 09:54 Saline Flush FLUSH 10 ml ASDIRECTED PRN Administration Keep Vein Open Discontinued Medications Generic Name Dose Route Start Last Admin Trade Name Freq PRN Reason Stop Dose Admin Famotidine 20 mg 07/06/18 09:36 07/06/18 09:55 Pepcid IVPUSH 07/06/18 09:37 20 mg ONETIME ONE Administration Lorazepam 1 mg 07/06/18 09:36 07/06/18 09:54 Ativan IVPUSH 07/06/18 09:37 1 mg ONETIME ONE Administration Lorazepam 1 mg 07/06/18 10:59 07/06/18 11:18 Ativan IVPUSH 07/06/18 11:00 1 mg ONETIME ONE Administration Lorazepam 1 mg 07/06/18 12:55 07/06/18 13:08 Ativan IVPUSH 07/06/18 12:56 1 mg ONETIME ONE Administration Departure - Departure Time of Disposition: 13:04 Disposition: Home, Self-Care 01 Condition: Fair Clinical Impression: Alcohol abuse Alcohol intoxication Qualifiers: Complication of substance-induced condition: uncomplicated Qualified Code(s): F10.920 - Alcohol use, unspecified with intoxication, uncomplicated - Discharge Information Referrals: Red Sin, MICHELL [Primary Care Provider] - ED Communication - Discussed Case With (1) Discussed Case With (1): Admitting Provider (Dr Preston, decision to admit at about 12:30.) - My Orders Last 24 Hours: My Active Orders 07/06/18 09:35 Peripheral IV Insertion Adult [OM.PC] Stat 07/06/18 09:36 Peripheral IV Care [RC] . DIRECTED Sodium Chloride 0.9% [Saline Flush] 10 ml FLUSH ASDIRECTED PRN 07/06/18 09:45 Sodium Chloride 0.9% [Normal Saline] 1,000 ml IV ONETIME 07/06/18 13:15 Sodium Chloride 0.9% [Normal Saline] 1,000 ml IV ONETIME - Assessment/Plan Last 24 Hours: My Active Orders 07/06/18 09:35 Peripheral IV Insertion Adult [OM.PC] Stat 07/06/18 09:36 Peripheral IV Care [RC] . DIRECTED Sodium Chloride 0.9% [Saline Flush] 10 ml FLUSH ASDIRECTED PRN 07/06/18 09:45 Sodium Chloride 0.9% [Normal Saline] 1,000 ml IV ONETIME 07/06/18 13:15 Sodium Chloride 0.9% [Normal Saline] 1,000 ml IV ONETIME
[2018-07-06] MEDS ORDERED: LORazepam 2 MG/ML SDV IVPUSH ONE ×3 (09:36→12:55)
[2018-07-06] MEDS ORDERED: Sodium Chloride 0.9% 10 ML Syringe FLUSH PRN (09:36)
[2018-07-06] MEDS ORDERED: Famotidine 20 MG/2 ML SDV IVPUSH ONE (09:36)
[2018-07-06] MEDS ORDERED: Sodium Chloride 0.9% 1,000 ML IV SCH ×2 (09:45→13:15)
--- NOTE | 2018-07-06 16:34 | PCM.HP ---
<Danelle Preston M - Last Filed: 07/06/18 16:45> H&P History of Present Illness - General Date of Service: 07/06/18 Admit Problem/Dx: Admission Diagnosis/Problem Admission Diagnosis/Problem Alcohol intoxication Right Lower Abdomen Pain Score (Numeric/FACES): 6 - Related Data Allergies/Adverse Reactions: Allergies Allergy/AdvReac Type Severity Reaction Status Date / Time shellfish derived Allergy Hives Verified 07/06/18 17:27 tuberculin,PPD,multi-puncture Allergy Difficulty Verified 07/06/18 17:27 Breathing Home Medications: Home Meds Lisinopril [Prinivil] 20 mg PO DAILY 07/07/17 [History] Montelukast Sodium 10 mg PO BEDTIME 07/07/17 [History] Omeprazole 20 mg PO DAILY 07/07/17 [History] Sucralfate [Carafate] 1 gm PO QID PRN 07/07/17 [History] Past Medical History - Past Health History Medical/Surgical History: Denies Medical/Surgical History Cardiovascular History: Reports: Hypertension Other Cardiovascular History: HTN only for 1 year- resolved Respiratory History: Reports: COPD Gastrointestinal History: Reports: GERD Other Gastrointestinal History: Acid reflux- resolved 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, 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: Reports: Polycystic Ovaries Musculoskeletal History: Reports: Arthritis Psychiatric History: Reports: Addiction, Anxiety, Depression Other Psychiatric History: Anxiety/depression Social & Family History - Family History Family Medical History: Noncontributory - Tobacco Use Smoking Status *Q: Current Every Day Smoker Years of Tobacco use: 24 Packs/Tins Daily: 0.5 Used Tobacco, but Quit: No Second Hand Smoke Exposure: No - Caffeine Use Caffeine Use: Reports: None - Alcohol Use Days Per Week of Alcohol Use: 7 Number of Drinks Per Day: 10 Total Drinks Per Week: 70 Date of Last Drink: 07/06/18 Time of Last Drink: 05:00 - Recreational Drug Use Recreational Drug Use: Yes Drug Use in Last 12 Months: Yes Recreational Drug Type: Reports: Cocaine, Methamphetamine Recreational Drug Use Frequency: Rarely - Living Situation & Occupation Living situation: Reports: , with Significant Other, Other (with 2 friends) Occupation: Unemployed H&P Review of Systems - Review of Systems: Review Of Systems: See Below Exam - Vital Signs Vital Signs: Last Vital Signs Temp 36.4 C 07/06/18 09:19 Pulse 95 07/06/18 09:19 Resp 14 07/06/18 09:19 BP 159/111 H 07/06/18 09:19 Pulse Ox 98 07/06/18 09:19 Weight: 81.647 kg - Patient Data Lab Results Last 24 hrs: Laboratory Results - last 24 hr 07/06/18 07/06/18 Range/Units 09:50 09:50 WBC 2.83 L (3.98-10.04) K/mm3 RBC 4.72 (3.98-5.22) M/mm3 Hgb 14.1 (11.2-15.7) gm/L Hct 42.6 (34.1-44.9) % MCV 90.3 (79.4-94.8) fl MCH 29.9 (25.6-32.2) pg MCHC 33.1 (32.2-35.5) g/dl RDW Std Deviation 47.2 H (36.4-46.3) fL Plt Count 56 L (182-369) K/mm3 MPV 11.1 (9.4-12.3) fl Neut % (Auto) 67.8 (34.0-71.1) % Lymph % (Auto) 19.4 (19.3-51.7) % [place] % (Auto) 11.3 (4.7-12.5) % Eos % (Auto) 0.4 L (0.7-5.8) Baso % (Auto) 1.1 (0.1-1.2) % Neut # (Auto) 1.92 (1.56-6.13) K/mm3 Lymph # (Auto) 0.55 L (1.18-3.74) K/mm3 [place] # (Auto) 0.32 (0.24-0.36) K/mm3 Eos # (Auto) 0.01 L (0.04-0.36) K/mm3 Baso # (Auto) 0.03 (0.01-0.08) K/mm3 Manual Slide Review Abnormal smear Sodium 139 (136-145) mEq/L Potassium 3.7 (3.5-5.1) mEq/L Chloride 100 (98-107) mEq/L Carbon Dioxide 25 (21-32) mEq/L Anion Gap 17.7 H (5-15) BUN 8 (7-18) mg/dL Creatinine 0.8 (0.55-1.02) mg/dL Est Cr Clr Drug Dosing 74.02 mL/min Estimated GFR (MDRD) > 60 (>60) mL/min BUN/Creatinine Ratio 10.0 L (14-18) Glucose 146 H (74-106) mg/dL Calcium 9.0 (8.5-10.1) mg/dL Total Bilirubin 0.7 (0.2-1.0) mg/dL AST 208 H (15-37) U/L ALT 193 H (14-59) U/L Alkaline Phosphatase 111 (46-116) U/L Total Protein 7.9 (6.4-8.2) g/dl Albumin 4.2 (3.4-5.0) g/dl Globulin 3.7 gm/dL Albumin/Globulin Ratio 1.1 (1-2) Ethyl Alcohol 0.09 (0.00) gm% Result Diagrams: 07/06/18 09:50 07/06/18 09:50 - Problem List (1) Alcohol abuse SNOMED Code(s): 44159113 ICD Code: F10.10 - ALCOHOL ABUSE, UNCOMPLICATED Status: Acute Current Visit: Yes (2) Alcohol intoxication SNOMED Code(s): 14962835 ICD Code: F10.929 - ALCOHOL USE, UNSPECIFIED WITH INTOXICATION, UNSPECIFIED Status: Acute Current Visit: Yes Qualifiers: Complication of substance-induced condition: uncomplicated Qualified Code(s ): F10.920 - Alcohol use, unspecified with intoxication, uncomplicated (3) Dehydration SNOMED Code(s): 48231815 ICD Code: E86.0 - DEHYDRATION Status: Acute Current Visit: No (4) GERD (gastroesophageal reflux disease) SNOMED Code(s): 594360869 ICD Code: K21.9 - GASTRO-ESOPHAGEAL REFLUX DISEASE WITHOUT ESOPHAGITIS Status: Acute Current Visit: No (5) Methamphetamine use disorder, moderate SNOMED Code(s): 537364490 ICD Code: F15.20 - OTHER STIMULANT DEPENDENCE, UNCOMPLICATED Status: Acute Current Visit: No (6) Recurrent seizures SNOMED Code(s): 96520623 ICD Code: G40.909 - EPILEPSY, UNSP, NOT INTRACTABLE, WITHOUT STATUS EPILEPTICUS Status: Acute Current Visit: No Problem List Initiated/Reviewed/Updated: Yes Orders Last 24hrs: Active Orders 24 hr Category Date Time Status Admission Status [Patient Status] [ADT] Routine ADT 07/06/18 16:02 Active Sodium Chloride 0.9% [Normal Saline] 1,000 ml Med 07/06/18 09:45 Active IV ONETIME Sodium Chloride 0.9% [Normal Saline] 1,000 ml Med 07/06/18 13:15 Active IV ONETIME Sodium Chloride 0.9% [Saline Flush] Med 07/06/18 09:36 Active 10 ml FLUSH ASDIRECTED PRN Peripheral IV Insertion Adult [OM.PC] Stat Oth 07/06/18 09:35 Ordered Medication Orders Sodium Chloride (Normal Saline) 1,000 mls @ 999 mls/hr IV ONETIME FAVIAN Last Admin: 07/06/18 09:54 Dose: 999 mls/hr Sodium Chloride (Normal Saline) 1,000 mls @ 999 mls/hr IV ONETIME FAVIAN Sodium Chloride (Saline Flush) 10 ml FLUSH ASDIRECTED PRN PRN Reason: Keep Vein Open Last Admin: 07/06/18 09:54 Dose: 10 ml Assessment/Plan Comment:: I/P: Acute: ETOH Withdrawal Symptoms/DT - CIWA protocol - has been 3-5's today - Librium/Topamax - Folic acid/Thiamine/Multi-vitamin - Hydralzine and IVP BB for HR/BP control - Ativan for Abortive Seizure and Withdrawal Symptoms - Tele-psych and SA consult - refusing Alcohol Abuse - Acute on Chronic - Risk factors: Hx/o ETOH abuse and chronic anxiety/depression - She had been in treatment at [facility] and was sober for 3 months - Started drinking again in February - Drinks 12-18 ounces per day of Rum per ED report - CIWA Protocol as above - SA consult - refusing History of seizures while detoxing - Monitoring - Seizure precautions - Ativan for abortive seizures Tobacco use disorder - Smokes 1/2 pack a day - Nicotine patch - refusing thus far - Cessation counseling Chronic: Hypertension COPD GERD Urinary retention Polycystic ovaries Arthritis Prior addiction Anxiety Depression Plan: Admit to ICU Other orders as indicated above PRN meds for Withdrawal Symptoms Seizure Precautions SW d/c planning SA/Psych consult Code Status: Full code; PCP: Charleen Larios NP Additional CC's: Charleen Larios <Alonzo Patel - Last Filed: 07/06/18 19:47> H&P History of Present Illness - General Admit Problem/Dx: Admission Diagnosis/Problem Admission Diagnosis/Problem Alcohol intoxication Source of Information: Patient, RN Notes Reviewed - History of Present Illness Initial Comments - Free Text/Narative: 53 year old female presents to ED with sx of "alcohol withdrawal. Exam - Vital Signs Vital Signs: Last Vital Signs Temp 98.3 F 07/06/18 16:50 Pulse 95 07/06/18 09:19 Resp 14 07/06/18 09:19 BP 141/110 H 07/06/18 16:50 Pulse Ox 97 07/06/18 16:50 - Patient Data Lab Results Last 24 hrs: Laboratory Results - last 24 hr 07/06/18 07/06/18 Range/Units 09:50 09:50 WBC 2.83 L (3.98-10.04) K/mm3 RBC 4.72 (3.98-5.22) M/mm3 Hgb 14.1 (11.2-15.7) gm/L Hct 42.6 (34.1-44.9) % MCV 90.3 (79.4-94.8) fl MCH 29.9 (25.6-32.2) pg MCHC 33.1 (32.2-35.5) g/dl RDW Std Deviation 47.2 H (36.4-46.3) fL Plt Count 56 L (182-369) K/mm3 MPV 11.1 (9.4-12.3) fl Neut % (Auto) 67.8 (34.0-71.1) % Lymph % (Auto) 19.4 (19.3-51.7) % [place] % (Auto) 11.3 (4.7-12.5) % Eos % (Auto) 0.4 L (0.7-5.8) Baso % (Auto) 1.1 (0.1-1.2) % Neut # (Auto) 1.92 (1.56-6.13) K/mm3 Lymph # (Auto) 0.55 L (1.18-3.74) K/mm3 [place] # (Auto) 0.32 (0.24-0.36) K/mm3 Eos # (Auto) 0.01 L (0.04-0.36) K/mm3 Baso # (Auto) 0.03 (0.01-0.08) K/mm3 Manual Slide Review Abnormal smear Sodium 139 (136-145) mEq/L Potassium 3.7 (3.5-5.1) mEq/L Chloride 100 (98-107) mEq/L Carbon Dioxide 25 (21-32) mEq/L Anion Gap 17.7 H (5-15) BUN 8 (7-18) mg/dL Creatinine 0.8 (0.55-1.02) mg/dL Est Cr Clr Drug Dosing 74.02 mL/min Estimated GFR (MDRD) > 60 (>60) mL/min BUN/Creatinine Ratio 10.0 L (14-18) Glucose 146 H (74-106) mg/dL Calcium 9.0 (8.5-10.1) mg/dL Total Bilirubin 0.7 (0.2-1.0) mg/dL AST 208 H (15-37) U/L ALT 193 H (14-59) U/L Alkaline Phosphatase 111 (46-116) U/L Total Protein 7.9 (6.4-8.2) g/dl Albumin 4.2 (3.4-5.0) g/dl Globulin 3.7 gm/dL Albumin/Globulin Ratio 1.1 (1-2) Ethyl Alcohol 0.09 (0.00) gm% Result Diagrams: 07/06/18 09:50 07/06/18 09:50 Orders Last 24hrs: Active Orders 24 hr Category Date Time Status Admission Status [Patient Status] [ADT] Routine ADT 07/06/18 16:02 Active Antiembolic Devices [RC] QSHIFT Care 07/06/18 17:05 Active CIWAA Assessment [RC] Q4H Care 07/06/18 16:49 Active Communication Order [RC] DAILY Care 07/06/18 19:01 Active Notify Provider Consults [RC] ASDIRECTED Care 07/06/18 16:55 Active Consult to Case Management/Database Software Technician [CONS] Cons 07/08/18 09:00 Active Routine Consult to Physician [CONS] Routine Cons 07/08/18 10:00 Active Clear Liquid Diet [DIET] Diet 07/06/18 Dinner Active BASIC METABOLIC PANEL,BMP [CHEM] DAILY Lab 07/07/18 05:00 Ordered BASIC METABOLIC PANEL,BMP [CHEM] DAILY Lab 07/08/18 05:00 Ordered BASIC METABOLIC PANEL,BMP [CHEM] DAILY Lab 07/09/18 05:00 Ordered BASIC METABOLIC PANEL,BMP [CHEM] DAILY Lab 07/10/18 05:00 Ordered BASIC METABOLIC PANEL,BMP [CHEM] DAILY Lab 07/11/18 05:00 Ordered CBC WITH AUTO DIFF [HEME] DAILY Lab 07/07/18 05:00 Ordered CBC WITH AUTO DIFF [HEME] DAILY Lab 07/08/18 05:00 Ordered CBC WITH AUTO DIFF [HEME] DAILY Lab 07/09/18 05:00 Ordered CBC WITH AUTO DIFF [HEME] DAILY Lab 07/10/18 05:00 Ordered CBC WITH AUTO DIFF [HEME] DAILY Lab 07/11/18 05:00 Ordered CRP [C-REACTIVE PROTEIN] [CHEM] DAILY Lab 07/07/18 05:00 Ordered CRP [C-REACTIVE PROTEIN] [CHEM] DAILY Lab 07/08/18 05:00 Ordered CRP [C-REACTIVE PROTEIN] [CHEM] DAILY Lab 07/09/18 05:00 Ordered CRP [C-REACTIVE PROTEIN] [CHEM] DAILY Lab 07/10/18 05:00 Ordered CRP [C-REACTIVE PROTEIN] [CHEM] DAILY Lab 07/11/18 05:00 Ordered LACTIC ACID [CHEM] DAILY Lab 07/07/18 05:00 Ordered LACTIC ACID [CHEM] DAILY Lab 07/08/18 05:00 Ordered LACTIC ACID [CHEM] DAILY Lab 07/09/18 05:00 Ordered LACTIC ACID [CHEM] DAILY Lab 07/10/18 05:00 Ordered LACTIC ACID [CHEM] DAILY Lab 07/11/18 05:00 Ordered MAGNESIUM [CHEM] DAILY Lab 07/07/18 05:00 Ordered MAGNESIUM [CHEM] DAILY Lab 07/08/18 05:00 Ordered MAGNESIUM [CHEM] DAILY Lab 07/09/18 05:00 Ordered MAGNESIUM [CHEM] DAILY Lab 07/10/18 05:00 Ordered MAGNESIUM [CHEM] DAILY Lab 07/11/18 05:00 Ordered Citalopram [Celexa] Med 07/07/18 09:00 Active 20 mg PO DAILY Folic Acid Med 07/06/18 17:00 Active 1 mg PO DAILY LORazepam [Ativan] Med 07/06/18 16:48 Active See Protocol IVPUSH Q6H PRN Metoprolol Tartrate [Lopressor] Med 07/06/18 16:51 Active 5 mg IVPUSH Q6H PRN Montelukast [Singulair] Med 07/06/18 21:00 Active 10 mg PO BEDTIME Nicotine [Habitrol] Med 07/06/18 17:00 Active 14 mg TRDERM DAILY Ondansetron [Zofran] Med 07/06/18 16:39 Active 4 mg IVPUSH Q8H PRN Pantoprazole [ProTONIX] Med 07/07/18 06:00 Active 40 mg PO ACBREAKFAST QUEtiapine [SEROquel] Med 07/06/18 21:00 Active 25 mg PO BEDTIME Remove Patch Med 07/07/18 09:00 Active 1 ea TRDERM DAILY Sodium Chloride 0.9% [Saline Flush] Med 07/06/18 09:36 Active 10 ml FLUSH ASDIRECTED PRN Sucralfate [Carafate] Med 07/06/18 16:38 Active 1 gm PO QID PRN Thiamine [Vitamin B-1] Med 07/06/18 21:00 Active 100 mg PO BEDTIME Topiramate [Topamax] Med 07/06/18 21:00 Active 25 mg PO BID chlordiazePOXIDE [Librium] Med 07/06/18 18:00 Active 25 mg PO TID hydrALAZINE [Apresoline] Med 07/06/18 16:50 Active 20 mg IVPUSH Q6H PRN Peripheral IV Insertion Adult [OM.PC] Stat Oth 07/06/18 09:35 Ordered SCD [Sequential Compression Device] [OM.PC] Routine Oth 07/06/18 17:05 Ordered Seizure Precautions [OM.PC] Routine Oth 07/06/18 17:06 Ordered Code Status [Resuscitation Status] Routine Resus Stat 07/06/18 17:42 Ordered Medication Orders Chlordiazepoxide HCl (Librium) 25 mg PO TID FAVIAN Last Admin: 07/06/18 17:41 Dose: 25 mg Citalopram Hydrobromide (Celexa) 20 mg PO DAILY [facility] Folic Acid (Folic Acid) 1 mg PO DAILY [facility] Last Admin: 07/06/18 17:41 Dose: 1 mg Hydralazine HCl (Apresoline) 20 mg IVPUSH Q6H PRN PRN Reason: Hypertension Lorazepam (Ativan) 0 mg IVPUSH Q6H PRN; Protocol PRN Reason: Anxiety Metoprolol Tartrate (Lopressor) 5 mg IVPUSH Q6H PRN PRN Reason: HR>120 Miscellaneous Information (Remove Patch) 1 ea TRDERM DAILY [facility] Montelukast Sodium (Singulair) 10 mg PO BEDTIME [facility] Nicotine (Habitrol) 14 mg TRDERM DAILY [facility] Last Admin: 07/06/18 17:42 Dose: Not Given Ondansetron HCl (Zofran) 4 mg IVPUSH Q8H PRN PRN Reason: Nausea/Vomiting Pantoprazole Sodium (Protonix) 40 mg PO ACBREAKFAST [facility] Quetiapine Fumarate (Seroquel) 25 mg PO BEDTIME [facility] Sodium Chloride (Saline Flush) 10 ml FLUSH ASDIRECTED PRN PRN Reason: Keep Vein Open Last Admin: 07/06/18 09:54 Dose: 10 ml Sucralfate (Carafate) 1 gm PO QID PRN PRN Reason: Heartburn Thiamine HCl (Vitamin B-1) 100 mg PO BEDTIME [facility] Topiramate (Topamax) 25 mg PO BID [facility] ED EXAM, GENERAL - Physical Exam Free Text/Narrative:: Patient states she has been drinking whiskey for about a month, states she had been dry for awhile before that. Now if she doesn't drink she gets the shakes, feels sick so keeps drinking to avoid those sx. Looking for help with detox. Has been through treatment many times before. Went through a medical detox at this hospital about 4 months ago. She states that when she does go through withdrawal she experiences hallucinations, does go into "DVT's which is why she keeps drinking and now her at this time to get help to stop. General Appearance: Alert, Mild Distress, Other (mild tremor) Throat/Mouth: Normal Inspection, Normal Oropharynx Head: Atraumatic. No: Facial Swelling Neck: Normal Inspection, Supple Respiratory/Chest: No Respiratory Distress, Lungs Clear, Normal Breath Sounds Cardiovascular: Regular Rate, Rhythm GI/Abdominal: Soft, Non-Tender. No: Guarding
[2018-07-06] MEDS ORDERED: Sucralfate 1 GM Tab PO PRN (16:38)
[2018-07-06] MEDS ORDERED: hydrALAZINE 20 MG/ML SDV IVPUSH PRN (16:50)
[2018-07-06] MEDS ORDERED: Metoprolol Tartrate 5 MG/5 ML SDV IVPUSH PRN (16:51)
[2018-07-06] MEDS ORDERED: Magnesium Sulfate/Water 2 GM in Premix Bag 1 BAG IV ONE (17:03)
[2018-07-06] MEDS: Folic Acid 1 MG Tab PO SCH (17:41)
[2018-07-06] MEDS: chlordiazePOXIDE 25 MG Cap PO SCH ×2 (17:41→20:28)
[2018-07-06] MEDS: Nicotine 14 MG/24 Hr Patch TRDERM SCH (17:42)
[2018-07-06] MEDS: Sodium Chloride 0.9% 1,000 ML IV SCH ×2 (18:10→19:16)
[2018-07-06] MEDS: Montelukast 10 MG Tab PO SCH (20:28)
[2018-07-06] MEDS: Thiamine 100 MG Tab PO SCH (20:28)
[2018-07-06] MEDS: LORazepam 2 MG/ML SDV IVPUSH PRN (20:29)
[2018-07-06] MEDS: QUEtiapine 25 MG Tab PO SCH (20:29)
[2018-07-06] MEDS: Topiramate 25 MG Tab PO SCH (20:29)
[2018-07-06] MEDS ORDERED: QUEtiapine 25 MG Tab PO SCH (21:00)
[2018-07-07] MEDS: Topiramate 25 MG Tab PO SCH ×2 (08:26→20:25)
[2018-07-07] MEDS: Folic Acid 1 MG Tab PO SCH (08:26)
[2018-07-07] MEDS: Citalopram 20 MG Tab PO SCH (08:26)
[2018-07-07] MEDS: chlordiazePOXIDE 25 MG Cap PO SCH ×3 (08:27→20:24)
[2018-07-07] MEDS: Pantoprazole 40 MG Tab.CR PO SCH (08:27)
[2018-07-07] MEDS: Ondansetron 4 MG/2 ML SDV IVPUSH PRN (08:27)
[2018-07-07] MEDS: LORazepam 2 MG/ML SDV IVPUSH PRN ×4 (08:29→20:25)
[2018-07-07] MEDS: Remove Patch*NICOTINE PATCH TRDERM SCH (08:34)
[2018-07-07] MEDS: Nicotine 14 MG/24 Hr Patch TRDERM SCH (08:34)
--- NOTE | 2018-07-07 10:05 | PCM.PN ---
- General Info Date of Service: 07/07/18 Functional Status: Reports: Pain Controlled, Tolerating Diet, Ambulating, Urinating - Review of Systems General: Reports: No Symptoms HEENT: Reports: No Symptoms Pulmonary: Reports: No Symptoms Cardiovascular: Reports: No Symptoms Gastrointestinal: Reports: No Symptoms 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: Reports: No Symptoms Musculoskeletal: Reports: No Symptoms Skin: Reports: No Symptoms Neurological: Reports: No Symptoms Psychiatric: Reports: No Symptoms - Patient Data Vitals - Most Recent: Last Vital Signs Temp 36.6 C 07/07/18 08:00 Pulse 97 07/07/18 08:00 Resp 18 07/07/18 08:00 BP 139/106 H 07/07/18 08:00 Pulse Ox 96 07/07/18 08:00 Weight - Most Recent: 81.647 kg I&O - Last 24 Hours: Intake & Output 07/06/18 07/07/18 07/07/18 22:59 06:59 14:59 Intake Total 300 Balance 300 Lab Results Last 24 Hours: Laboratory Results - last 24 hr 07/06/18 07/06/18 07/07/18 Range/Units 09:50 09:50 05:23 WBC 2.83 L 2.45 L* (3.98-10.04) K/mm3 RBC 4.72 4.46 (3.98-5.22) M/mm3 Hgb 14.1 13.4 (11.2-15.7) gm/L Hct 42.6 41.3 (34.1-44.9) % MCV 90.3 92.6 (79.4-94.8) fl MCH 29.9 30.0 (25.6-32.2) pg MCHC 33.1 32.4 (32.2-35.5) g/dl RDW Std Deviation 47.2 H 47.6 H (36.4-46.3) fL Plt Count 56 L 47 L (182-369) K/mm3 MPV 11.1 11.9 (9.4-12.3) fl Neut % (Auto) 67.8 53.5 (34.0-71.1) % Lymph % (Auto) 19.4 32.7 (19.3-51.7) % [place] % (Auto) 11.3 11.0 (4.7-12.5) % Eos % (Auto) 0.4 L 2.4 (0.7-5.8) Baso % (Auto) 1.1 0.4 (0.1-1.2) % Neut # (Auto) 1.92 1.31 L (1.56-6.13) K/mm3 Lymph # (Auto) 0.55 L 0.80 L (1.18-3.74) K/mm3 [place] # (Auto) 0.32 0.27 (0.24-0.36) K/mm3 Eos # (Auto) 0.01 L 0.06 (0.04-0.36) K/mm3 Baso # (Auto) 0.03 0.01 (0.01-0.08) K/mm3 Manual Slide Review Abnormal smear Abnormal smear Sodium 139 (136-145) mEq/L Potassium 3.7 (3.5-5.1) mEq/L Chloride 100 (98-107) mEq/L Carbon Dioxide 25 (21-32) mEq/L Anion Gap 17.7 H (5-15) BUN 8 (7-18) mg/dL Creatinine 0.8 (0.55-1.02) mg/dL Est Cr Clr Drug Dosing 74.02 mL/min Estimated GFR (MDRD) > 60 (>60) mL/min BUN/Creatinine Ratio 10.0 L (14-18) Glucose 146 H (74-106) mg/dL Lactic Acid (0.4-2.0) mmol/L Calcium 9.0 (8.5-10.1) mg/dL Magnesium (1.8-2.4) mg/dl Total Bilirubin 0.7 (0.2-1.0) mg/dL AST 208 H (15-37) U/L ALT 193 H (14-59) U/L Alkaline Phosphatase 111 (46-116) U/L C-Reactive Protein (<1.0) mg/dL Total Protein 7.9 (6.4-8.2) g/dl Albumin 4.2 (3.4-5.0) g/dl Globulin 3.7 gm/dL Albumin/Globulin Ratio 1.1 (1-2) Ethyl Alcohol 0.09 (0.00) gm% 07/07/18 07/07/18 Range/Units 05:23 05:23 WBC (3.98-10.04) K/mm3 RBC (3.98-5.22) M/mm3 Hgb (11.2-15.7) gm/L Hct (34.1-44.9) % MCV (79.4-94.8) fl MCH (25.6-32.2) pg MCHC (32.2-35.5) g/dl RDW Std Deviation (36.4-46.3) fL Plt Count (182-369) K/mm3 MPV (9.4-12.3) fl Neut % (Auto) (34.0-71.1) % Lymph % (Auto) (19.3-51.7) % [place] % (Auto) (4.7-12.5) % Eos % (Auto) (0.7-5.8) Baso % (Auto) (0.1-1.2) % Neut # (Auto) (1.56-6.13) K/mm3 Lymph # (Auto) (1.18-3.74) K/mm3 [place] # (Auto) (0.24-0.36) K/mm3 Eos # (Auto) (0.04-0.36) K/mm3 Baso # (Auto) (0.01-0.08) K/mm3 Manual Slide Review Sodium 138 (136-145) mEq/L Potassium 3.4 L (3.5-5.1) mEq/L Chloride 104 (98-107) mEq/L Carbon Dioxide 24 (21-32) mEq/L Anion Gap 13.4 (5-15) BUN 5 L (7-18) mg/dL Creatinine 0.7 (0.55-1.02) mg/dL Est Cr Clr Drug Dosing 84.59 mL/min Estimated GFR (MDRD) > 60 (>60) mL/min BUN/Creatinine Ratio 7.1 L (14-18) Glucose 108 H (74-106) mg/dL Lactic Acid 0.9 (0.4-2.0) mmol/L Calcium 7.8 L (8.5-10.1) mg/dL Magnesium 2.3 (1.8-2.4) mg/dl Total Bilirubin (0.2-1.0) mg/dL AST (15-37) U/L ALT (14-59) U/L Alkaline Phosphatase (46-116) U/L C-Reactive Protein < 0.2 (<1.0) mg/dL Total Protein (6.4-8.2) g/dl Albumin (3.4-5.0) g/dl Globulin gm/dL Albumin/Globulin Ratio (1-2) Ethyl Alcohol (0.00) gm% Med Orders - Current: Current Medications Chlordiazepoxide HCl (Librium) 25 mg PO TID [facility] Last Admin: 07/07/18 08:27 Dose: 25 mg Citalopram Hydrobromide (Celexa) 20 mg PO DAILY [facility] Last Admin: 07/07/18 08:26 Dose: 20 mg Folic Acid (Folic Acid) 1 mg PO DAILY [facility] Last Admin: 07/07/18 08:26 Dose: 1 mg Hydralazine HCl (Apresoline) 20 mg IVPUSH Q6H PRN PRN Reason: Hypertension Lorazepam (Ativan) 0 mg IVPUSH Q6H PRN; Protocol PRN Reason: Anxiety Last Admin: 07/07/18 08:29 Dose: 1 mg Metoprolol Tartrate (Lopressor) 5 mg IVPUSH Q6H PRN PRN Reason: HR>120 Miscellaneous Information (Remove Patch) 1 ea TRDERM DAILY [facility] Last Admin: 07/07/18 08:34 Dose: Not Given Montelukast Sodium (Singulair) 10 mg PO BEDTIME [facility] Last Admin: 07/06/18 20:28 Dose: 10 mg Nicotine (Habitrol) 14 mg TRDERM DAILY [facility] Last Admin: 07/07/18 08:34 Dose: Not Given Ondansetron HCl (Zofran) 4 mg IVPUSH Q8H PRN PRN Reason: Nausea/Vomiting Last Admin: 07/07/18 08:27 Dose: 4 mg Pantoprazole Sodium (Protonix) 40 mg PO DAILY@0800 [facility] Last Admin: 07/07/18 08:27 Dose: 40 mg Quetiapine Fumarate (Seroquel) 25 mg PO BEDTIME [facility] Last Admin: 07/06/18 20:29 Dose: 25 mg Sodium Chloride (Saline Flush) 10 ml FLUSH ASDIRECTED PRN PRN Reason: Keep Vein Open Last Admin: 07/06/18 09:54 Dose: 10 ml Sucralfate (Carafate) 1 gm PO QID PRN PRN Reason: Heartburn Thiamine HCl (Vitamin B-1) 100 mg PO BEDTIME [facility] Last Admin: 07/06/18 20:28 Dose: 100 mg Topiramate (Topamax) 25 mg PO BID [facility] Last Admin: 07/07/18 08:26 Dose: 25 mg Discontinued Medications Famotidine (Pepcid) 20 mg IVPUSH ONETIME ONE Stop: 07/06/18 09:37 Last Admin: 07/06/18 09:55 Dose: 20 mg Sodium Chloride (Normal Saline) 1,000 mls @ 999 mls/hr IV ONETIME [facility] Last Admin: 07/06/18 09:54 Dose: 999 mls/hr Sodium Chloride (Normal Saline) 1,000 mls @ 999 mls/hr IV ONETIME [facility] Sodium Chloride (Normal Saline) 1,000 mls @ 999 mls/hr IV ASDIRECTED [facility] Stop: 07/06/18 19:00 Last Admin: 07/06/18 19:16 Dose: 999 mls/hr Magnesium Sulfate 2 gm/ Premix 50 mls @ 25 mls/hr IV ONETIME ONE Stop: 07/06/18 19:02 Last Admin: 07/06/18 17:41 Dose: 25 mls/hr Lorazepam (Ativan) 1 mg IVPUSH ONETIME ONE Stop: 07/06/18 09:37 Last Admin: 07/06/18 09:54 Dose: 1 mg Lorazepam (Ativan) 1 mg IVPUSH ONETIME ONE Stop: 07/06/18 11:00 Last Admin: 07/06/18 11:18 Dose: 1 mg Lorazepam (Ativan) 1 mg IVPUSH ONETIME ONE Stop: 07/06/18 12:56 Last Admin: 07/06/18 13:08 Dose: 1 mg Quetiapine Fumarate (Seroquel) 50 mg PO BEDTIME [facility] - Exam Quality Assessment: Supplemental Oxygen, DVT Prophylaxis General: Alert, Oriented, Cooperative, No Acute Distress HEENT: Pupils Equal, Pupils Reactive, EOMI Neck: Trachea Midline, No JVD Lungs: Normal Respiratory Effort, Decreased Breath Sounds, Rhonchi, Wheezing Cardiovascular: Regular Rate, Regular Rhythm GI/Abdominal Exam: Normal Bowel Sounds, Soft, Non-Tender, No Organomegaly, No Distention (Female) Exam: Deferred Back Exam: Normal Inspection Extremities: Normal Inspection, Non-Tender, Normal Capillary Refill Skin: Warm Neurological: No New Focal Deficit Psy/Mental Status: Alert, Anxious - Problem List & Annotations (1) Alcohol abuse SNOMED Code(s): 37702412 Code(s): F10.10 - ALCOHOL ABUSE, UNCOMPLICATED Status: Acute Current Visit: Yes (2) Alcohol intoxication SNOMED Code(s): 51524518 Code(s): F10.929 - ALCOHOL USE, UNSPECIFIED WITH INTOXICATION, UNSPECIFIED Status: Acute Current Visit: Yes Qualifiers: Complication of substance-induced condition: uncomplicated Qualified Code(s ): F10.920 - Alcohol use, unspecified with intoxication, uncomplicated (3) Dehydration SNOMED Code(s): 79664151 Code(s): E86.0 - DEHYDRATION Status: Acute Current Visit: No (4) GERD (gastroesophageal reflux disease) SNOMED Code(s): 656335730 Code(s): K21.9 - GASTRO-ESOPHAGEAL REFLUX DISEASE WITHOUT ESOPHAGITIS Status: Acute Current Visit: No (5) Methamphetamine use disorder, moderate SNOMED Code(s): 371420203 Code(s): F15.20 - OTHER STIMULANT DEPENDENCE, UNCOMPLICATED Status: Acute Current Visit: No (6) Recurrent seizures SNOMED Code(s): 17837365 Code(s): G40.909 - EPILEPSY, UNSP, NOT INTRACTABLE, WITHOUT STATUS EPILEPTICUS Status: Acute Current Visit: No - Problem List Review Problem List Initiated/Reviewed/Updated: Yes - My Orders Last 24 Hours: My Active Orders 07/06/18 16:38 Sucralfate [Carafate] 1 gm PO QID PRN 07/06/18 16:39 Ondansetron [Zofran] 4 mg IVPUSH Q8H PRN 07/06/18 16:48 LORazepam [Ativan] See Protocol IVPUSH Q6H PRN 07/06/18 16:50 hydrALAZINE [Apresoline] 20 mg IVPUSH Q6H PRN 07/06/18 16:51 Metoprolol Tartrate [Lopressor] 5 mg IVPUSH Q6H PRN 07/06/18 16:55 Notify Provider Consults [RC] ASDIRECTED 07/06/18 17:00 Folic Acid 1 mg PO DAILY Nicotine [Habitrol] 14 mg TRDERM DAILY 07/06/18 17:05 Antiembolic Devices [RC] QSHIFT SCD [Sequential Compression Device] [OM.PC] Routine 07/06/18 17:06 Seizure Precautions [OM.PC] Routine 07/06/18 17:42 Code Status [Resuscitation Status] Routine 07/06/18 18:00 chlordiazePOXIDE [Librium] 25 mg PO TID 07/06/18 21:00 Montelukast [Singulair] 10 mg PO BEDTIME QUEtiapine [SEROquel] 25 mg PO BEDTIME Thiamine [Vitamin B-1] 100 mg PO BEDTIME 07/06/18 Dinner Clear Liquid Diet [DIET] 07/07/18 08:00 Pantoprazole [ProTONIX] 40 mg PO DAILY@0800 07/07/18 09:00 Citalopram [Celexa] 20 mg PO DAILY Remove Patch 1 ea TRDERM DAILY 07/07/18 Lunch Full Liquid Diet [DIET] 07/08/18 05:00 BASIC METABOLIC PANEL,BMP [CHEM] DAILY CBC WITH AUTO DIFF [HEME] DAILY CRP [C-REACTIVE PROTEIN] [CHEM] DAILY LACTIC ACID [CHEM] DAILY MAGNESIUM [CHEM] DAILY 07/08/18 09:00 Consult to Case Management/Associate Professor Of Chemistry [CONS] Routine 07/08/18 10:00 Consult to Physician [CONS] Routine 07/09/18 05:00 BASIC METABOLIC PANEL,BMP [CHEM] DAILY CBC WITH AUTO DIFF [HEME] DAILY CRP [C-REACTIVE PROTEIN] [CHEM] DAILY LACTIC ACID [CHEM] DAILY MAGNESIUM [CHEM] DAILY 07/10/18 05:00 BASIC METABOLIC PANEL,BMP [CHEM] DAILY CBC WITH AUTO DIFF [HEME] DAILY CRP [C-REACTIVE PROTEIN] [CHEM] DAILY LACTIC ACID [CHEM] DAILY MAGNESIUM [CHEM] DAILY 07/11/18 05:00 BASIC METABOLIC PANEL,BMP [CHEM] DAILY CBC WITH AUTO DIFF [HEME] DAILY CRP [C-REACTIVE PROTEIN] [CHEM] DAILY LACTIC ACID [CHEM] DAILY MAGNESIUM [CHEM] DAILY - Plan Plan:: I/P: Acute: ETOH Withdrawal Symptoms/DT - Librium/Topamax - Folic acid/Thiamine/Multi-vitamin - Hydralzine and IVP BB for HR/BP control - Ativan for Abortive Seizure and Withdrawal Symptoms Alcohol Abuse - Acute on Chronic - Risk factors: Hx/o ETOH abuse and chronic anxiety/depression History of seizures w/ withdrawal - Monitoring - Seizure precautions - Ativan for abortive seizures Tobacco use disorder - Smokes 1/2 pack a day - Nicotine patch - Cessation counseling Chronic: Hypertension COPD GERD Urinary retention Polycystic ovaries Arthritis Prior addiction Anxiety Depression Plan: ICU Other orders as indicated above PRN meds for Withdrawal Symptoms Seizure Precautions SW d/c planning SA/Psych consult, Psych recommendations have been started. Code Status: Full code; PCP: Charleen Larios NP Additional CC's: Charleen Larios
--- NOTE | 2018-07-07 14:03 | PCM.HP ---
H&P History of Present Illness - General Date of Service: 07/06/18 Admit Problem/Dx: Admission Diagnosis/Problem Admission Diagnosis/Problem Alcohol intoxication Source of Information: Patient, Provider History Limitations: Reports: No Limitations - History of Present Illness Initial Comments - Free Text/Narative: 53 year old female with longstanding history of ETOH abuse presents requesting assistance with alcohol withdrawal. She has kaelyn to numerous treatment centers. Last admission to [facility] was March 2018. She reports a history of alcohol withdrawal seizures/DTs. Current ETOH level is 0.09, additionally elevated transaminases are noted. She will be admitted to ICU, full code status. Onset of Symptoms: Reports: Unknown/Unsure Duration of Symptoms: Reports: Day(s):, Getting Worse Quality: Reports: Same as Previous Episode Severity: Moderate Improves with: Reports: Medication Worsens with: Reports: None Associated Symptoms: Reports: Nausea/Vomiting, Weakness Right Lower Abdomen Pain Score (Numeric/FACES): 6 Right Upper Abdomen Pain Score (Numeric/FACES): 4 - Related Data Allergies/Adverse Reactions: Allergies Allergy/AdvReac Type Severity Reaction Status Date / Time shellfish derived Allergy Hives Verified 07/06/18 17:27 tuberculin,PPD,multi-puncture Allergy Difficulty Verified 07/06/18 17:27 Breathing Home Medications: Home Meds Lisinopril [Prinivil] 20 mg PO DAILY 07/07/17 [History] Montelukast Sodium 10 mg PO BEDTIME 07/07/17 [History] Omeprazole 20 mg PO DAILY 07/07/17 [History] Sucralfate [Carafate] 1 gm PO QID PRN 07/07/17 [History] Past Medical History - Past Health History Medical/Surgical History: Denies Medical/Surgical History Cardiovascular History: Reports: Hypertension Other Cardiovascular History: HTN only for 1 year- resolved Respiratory History: Reports: COPD Gastrointestinal History: Reports: GERD Other Gastrointestinal History: Acid reflux- resolved 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, 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: Polycystic Ovaries Musculoskeletal History: Reports: Arthritis Neurological History: Reports: Seizure Other Neuro History: 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 Psychiatric History: Reports: Addiction, Anxiety, Depression Other Psychiatric History: Anxiety/depression - Past Surgical History Musculoskeletal Surgical History: Reports: None Social & Family History - Family History Family Medical History: Noncontributory - Tobacco Use Smoking Status *Q: Current Every Day Smoker Years of Tobacco use: 25 Packs/Tins Daily: 3 Used Tobacco, but Quit: No Second Hand Smoke Exposure: No - Caffeine Use Caffeine Use: Reports: Soda - Alcohol Use Days Per Week of Alcohol Use: 7 Number of Drinks Per Day: 10 Total Drinks Per Week: 70 Date of Last Drink: 07/06/18 Time of Last Drink: 05:00 - Recreational Drug Use Recreational Drug Use: No Drug Use in Last 12 Months: Yes Recreational Drug Type: Reports: Cocaine, Methamphetamine Recreational Drug Use Frequency: Rarely - Living Situation & Occupation Living situation: Reports: , with Significant Other, Other (with 2 friends) Occupation: Unemployed H&P Review of Systems - Review of Systems: Review Of Systems: See Below General: Reports: Weakness HEENT: Reports: No Symptoms Pulmonary: Reports: Shortness of Breath, Wheezing Cardiovascular: Reports: Palpitations Gastrointestinal: Reports: Abdominal Pain 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: Reports: No Symptoms Musculoskeletal: Reports: No Symptoms Skin: Reports: No Symptoms Psychiatric: Reports: No Symptoms Neurological: Reports: No Symptoms Hematologic/Lymphatic: Reports: No Symptoms Exam - Exam Exam: See Below - Vital Signs Vital Signs: Last Vital Signs Temp 36.8 C 07/07/18 12:00 Pulse 89 07/07/18 12:00 Resp 16 07/07/18 12:00 BP 121/95 H 07/07/18 12:00 Pulse Ox 95 07/07/18 12:00 Weight: 81.647 kg - Exam Quality Assessment: Supplemental Oxygen General: Alert, Oriented, Cooperative, Mild Distress HEENT: Conjunctiva Clear, EACs Clear, EOMI, Normal Nasal Septum, Pupils Equal, Pupils Reactive Neck: Trachea Midline Lungs: Normal Respiratory Effort, Decreased Breath Sounds Cardiovascular: Regular Rate, Regular Rhythm GI/Abdominal Exam: Normal Bowel Sounds, Soft, Non-Tender, No Organomegaly, No Distention (Female) Exam: Deferred Back Exam: Normal Inspection Extremities: Normal Inspection, Non-Tender, Normal Capillary Refill Skin: Warm Neurological: Cranial Nerves Intact Neuro Extensive - Mental Status: Alert, Oriented x3 Neuro Extensive - Motor, Sensory, Reflexes: CN II-XII Intact Psychiatric: Alert, Anxious - Patient Data Lab Results Last 24 hrs: Laboratory Results - last 24 hr 07/07/18 07/07/18 07/07/18 Range/Units 05:23 05:23 05:23 WBC 2.45 L* (3.98-10.04) K/mm3 RBC 4.46 (3.98-5.22) M/mm3 Hgb 13.4 (11.2-15.7) gm/L Hct 41.3 (34.1-44.9) % MCV 92.6 (79.4-94.8) fl MCH 30.0 (25.6-32.2) pg MCHC 32.4 (32.2-35.5) g/dl RDW Std Deviation 47.6 H (36.4-46.3) fL Plt Count 47 L (182-369) K/mm3 MPV 11.9 (9.4-12.3) fl Neut % (Auto) 53.5 (34.0-71.1) % Lymph % (Auto) 32.7 (19.3-51.7) % [place] % (Auto) 11.0 (4.7-12.5) % Eos % (Auto) 2.4 (0.7-5.8) Baso % (Auto) 0.4 (0.1-1.2) % Neut # (Auto) 1.31 L (1.56-6.13) K/mm3 Lymph # (Auto) 0.80 L (1.18-3.74) K/mm3 [place] # (Auto) 0.27 (0.24-0.36) K/mm3 Eos # (Auto) 0.06 (0.04-0.36) K/mm3 Baso # (Auto) 0.01 (0.01-0.08) K/mm3 Manual Slide Review Abnormal smear Sodium 138 (136-145) mEq/L Potassium 3.4 L (3.5-5.1) mEq/L Chloride 104 (98-107) mEq/L Carbon Dioxide 24 (21-32) mEq/L Anion Gap 13.4 (5-15) BUN 5 L (7-18) mg/dL Creatinine 0.7 (0.55-1.02) mg/dL Est Cr Clr Drug Dosing 84.59 mL/min Estimated GFR (MDRD) > 60 (>60) mL/min BUN/Creatinine Ratio 7.1 L (14-18) Glucose 108 H (74-106) mg/dL Lactic Acid 0.9 (0.4-2.0) mmol/L Calcium 7.8 L (8.5-10.1) mg/dL Magnesium 2.3 (1.8-2.4) mg/dl C-Reactive Protein < 0.2 (<1.0) mg/dL Ethyl Alcohol (0.00) gm% 07/07/18 Range/Units 05:23 WBC (3.98-10.04) K/mm3 RBC (3.98-5.22) M/mm3 Hgb (11.2-15.7) gm/L Hct (34.1-44.9) % MCV (79.4-94.8) fl MCH (25.6-32.2) pg MCHC (32.2-35.5) g/dl RDW Std Deviation (36.4-46.3) fL Plt Count (182-369) K/mm3 MPV (9.4-12.3) fl Neut % (Auto) (34.0-71.1) % Lymph % (Auto) (19.3-51.7) % [place] % (Auto) (4.7-12.5) % Eos % (Auto) (0.7-5.8) Baso % (Auto) (0.1-1.2) % Neut # (Auto) (1.56-6.13) K/mm3 Lymph # (Auto) (1.18-3.74) K/mm3 [place] # (Auto) (0.24-0.36) K/mm3 Eos # (Auto) (0.04-0.36) K/mm3 Baso # (Auto) (0.01-0.08) K/mm3 Manual Slide Review Sodium (136-145) mEq/L Potassium (3.5-5.1) mEq/L Chloride (98-107) mEq/L Carbon Dioxide (21-32) mEq/L Anion Gap (5-15) BUN (7-18) mg/dL Creatinine (0.55-1.02) mg/dL Est Cr Clr Drug Dosing mL/min Estimated GFR (MDRD) (>60) mL/min BUN/Creatinine Ratio (14-18) Glucose (74-106) mg/dL Lactic Acid (0.4-2.0) mmol/L Calcium (8.5-10.1) mg/dL Magnesium (1.8-2.4) mg/dl C-Reactive Protein (<1.0) mg/dL Ethyl Alcohol 0.00 (0.00) gm% Result Diagrams: 07/07/18 05:23 07/07/18 05:23 - Problem List (1) Alcohol abuse SNOMED Code(s): 57886895 ICD Code: F10.10 - ALCOHOL ABUSE, UNCOMPLICATED Status: Acute Current Visit: Yes (2) Alcohol intoxication SNOMED Code(s): 63778951 ICD Code: F10.929 - ALCOHOL USE, UNSPECIFIED WITH INTOXICATION, UNSPECIFIED Status: Acute Current Visit: Yes Qualifiers: Complication of substance-induced condition: uncomplicated Qualified Code(s ): F10.920 - Alcohol use, unspecified with intoxication, uncomplicated (3) Dehydration SNOMED Code(s): 68590665 ICD Code: E86.0 - DEHYDRATION Status: Acute Current Visit: No (4) GERD (gastroesophageal reflux disease) SNOMED Code(s): 931289333 ICD Code: K21.9 - GASTRO-ESOPHAGEAL REFLUX DISEASE WITHOUT ESOPHAGITIS Status: Acute Current Visit: No (5) Methamphetamine use disorder, moderate SNOMED Code(s): 192121518 ICD Code: F15.20 - OTHER STIMULANT DEPENDENCE, UNCOMPLICATED Status: Acute Current Visit: No (6) Recurrent seizures SNOMED Code(s): 89523611 ICD Code: G40.909 - EPILEPSY, UNSP, NOT INTRACTABLE, WITHOUT STATUS EPILEPTICUS Status: Acute Current Visit: No Problem List Initiated/Reviewed/Updated: Yes Orders Last 24hrs: Active Orders 24 hr Category Date Time Status Admission Status [Patient Status] [ADT] Routine ADT 07/06/18 16:02 Active Antiembolic Devices [RC] QSHIFT Care 07/06/18 17:05 Active Communication Order [RC] .PRN Care 07/06/18 19:01 Active Notify Provider Consults [RC] ASDIRECTED Care 07/06/18 16:55 Active Consult to Case Management/Logging Crew Foreman [CONS] Cons 07/08/18 09:00 Active Routine Consult to Physician [CONS] Routine Cons 07/08/18 10:00 Active Full Liquid Diet [DIET] Diet 07/07/18 Lunch Active BASIC METABOLIC PANEL,BMP [CHEM] DAILY Lab 07/08/18 05:00 Ordered BASIC METABOLIC PANEL,BMP [CHEM] DAILY Lab 07/09/18 05:00 Ordered BASIC METABOLIC PANEL,BMP [CHEM] DAILY Lab 07/10/18 05:00 Ordered BASIC METABOLIC PANEL,BMP [CHEM] DAILY Lab 07/11/18 05:00 Ordered CBC WITH AUTO DIFF [HEME] DAILY Lab 07/08/18 05:00 Ordered CBC WITH AUTO DIFF [HEME] DAILY Lab 07/09/18 05:00 Ordered CBC WITH AUTO DIFF [HEME] DAILY Lab 07/10/18 05:00 Ordered CBC WITH AUTO DIFF [HEME] DAILY Lab 07/11/18 05:00 Ordered CRP [C-REACTIVE PROTEIN] [CHEM] DAILY Lab 07/08/18 05:00 Ordered CRP [C-REACTIVE PROTEIN] [CHEM] DAILY Lab 07/09/18 05:00 Ordered CRP [C-REACTIVE PROTEIN] [CHEM] DAILY Lab 07/10/18 05:00 Ordered CRP [C-REACTIVE PROTEIN] [CHEM] DAILY Lab 07/11/18 05:00 Ordered HEPATIC FUNCTION PANEL,HFP [CHEM] Routine Lab 07/08/18 05:00 Ordered LACTIC ACID [CHEM] DAILY Lab 07/08/18 05:00 Ordered LACTIC ACID [CHEM] DAILY Lab 07/09/18 05:00 Ordered LACTIC ACID [CHEM] DAILY Lab 07/10/18 05:00 Ordered LACTIC ACID [CHEM] DAILY Lab 07/11/18 05:00 Ordered MAGNESIUM [CHEM] DAILY Lab 07/08/18 05:00 Ordered MAGNESIUM [CHEM] DAILY Lab 07/09/18 05:00 Ordered MAGNESIUM [CHEM] DAILY Lab 07/10/18 05:00 Ordered MAGNESIUM [CHEM] DAILY Lab 07/11/18 05:00 Ordered Citalopram [Celexa] Med 07/07/18 09:00 Active 20 mg PO DAILY Folic Acid Med 07/06/18 17:00 Active 1 mg PO DAILY LORazepam [Ativan] Med 07/06/18 16:48 Active See Protocol IVPUSH Q6H PRN Metoprolol Tartrate [Lopressor] Med 07/06/18 16:51 Active 5 mg IVPUSH Q6H PRN Montelukast [Singulair] Med 07/06/18 21:00 Active 10 mg PO BEDTIME Nicotine [Habitrol] Med 07/06/18 17:00 Active 14 mg TRDERM DAILY Ondansetron [Zofran] Med 07/06/18 16:39 Active 4 mg IVPUSH Q8H PRN Pantoprazole [ProTONIX] Med 07/07/18 08:00 Active 40 mg PO DAILY@0800 QUEtiapine [SEROquel] Med 07/06/18 21:00 Active 25 mg PO BEDTIME Remove Patch Med 07/07/18 09:00 Active 1 ea TRDERM DAILY Sucralfate [Carafate] Med 07/06/18 16:38 Active 1 gm PO QID PRN Thiamine [Vitamin B-1] Med 07/06/18 21:00 Active 100 mg PO BEDTIME Topiramate [Topamax] Med 07/06/18 21:00 Active 25 mg PO BID chlordiazePOXIDE [Librium] Med 07/06/18 18:00 Active 25 mg PO TID hydrALAZINE [Apresoline] Med 07/06/18 16:50 Active 20 mg IVPUSH Q6H PRN SCD [Sequential Compression Device] [OM.PC] Routine Oth 07/06/18 17:05 Ordered Seizure Precautions [OM.PC] Routine Oth 07/06/18 17:06 Ordered Code Status [Resuscitation Status] Routine Resus Stat 07/06/18 17:42 Ordered Medication Orders Chlordiazepoxide HCl (Librium) 25 mg PO TID [facility] Last Admin: 07/07/18 08:27 Dose: 25 mg Admin: 07/06/18 20:28 Dose: 25 mg Admin: 07/06/18 17:41 Dose: 25 mg Citalopram Hydrobromide (Celexa) 20 mg PO DAILY [facility] Last Admin: 07/07/18 08:26 Dose: 20 mg Folic Acid (Folic Acid) 1 mg PO DAILY [facility] Last Admin: 07/07/18 08:26 Dose: 1 mg Admin: 07/06/18 17:41 Dose: 1 mg Hydralazine HCl (Apresoline) 20 mg IVPUSH Q6H PRN PRN Reason: Hypertension Lorazepam (Ativan) 0 mg IVPUSH Q6H PRN; Protocol PRN Reason: Anxiety Last Admin: 07/07/18 08:29 Dose: 1 mg Admin: 07/06/18 20:29 Dose: 1 mg Metoprolol Tartrate (Lopressor) 5 mg IVPUSH Q6H PRN PRN Reason: HR>120 Miscellaneous Information (Remove Patch) 1 ea TRDERM DAILY [facility] Last Admin: 07/07/18 08:34 Dose: Not Given Montelukast Sodium (Singulair) 10 mg PO BEDTIME [facility] Last Admin: 07/06/18 20:28 Dose: 10 mg Nicotine (Habitrol) 14 mg TRDERM DAILY [facility] Last Admin: 07/07/18 08:34 Dose: Not Given Admin: 07/06/18 17:42 Dose: Not Given Ondansetron HCl (Zofran) 4 mg IVPUSH Q8H PRN PRN Reason: Nausea/Vomiting Last Admin: 07/07/18 08:27 Dose: 4 mg Pantoprazole Sodium (Protonix) 40 mg PO DAILY@0800 [facility] Last Admin: 07/07/18 08:27 Dose: 40 mg Quetiapine Fumarate (Seroquel) 25 mg PO BEDTIME [facility] Last Admin: 07/06/18 20:29 Dose: 25 mg Sodium Chloride (Saline Flush) 10 ml FLUSH ASDIRECTED PRN PRN Reason: Keep Vein Open Last Admin: 07/06/18 09:54 Dose: 10 ml Sucralfate (Carafate) 1 gm PO QID PRN PRN Reason: Heartburn Thiamine HCl (Vitamin B-1) 100 mg PO BEDTIME [facility] Last Admin: 07/06/18 20:28 Dose: 100 mg Topiramate (Topamax) 25 mg PO BID [facility] Last Admin: 07/07/18 08:26 Dose: 25 mg Admin: 07/06/18 20:29 Dose: 25 mg Assessment/Plan Comment:: Impression: ETOH withdrawal, history of withdrawal Sz Hx of reportedly of DTs. HTN GERD Tobacco dependence Chronic PCO Anxiety/Depression Plan: IVF CIWA protocol SZ precautions Asp precautions Consult SW Consult SA/Psych re: IP treatment Home meds Daily labs DVT/GI prophylaxis
[2018-07-07] MEDS: Acetaminophen 325 MG Tab PO PRN (17:23)
[2018-07-07] MEDS: Loperamide 2 MG Cap PO PRN (17:23)
[2018-07-07] MEDS: QUEtiapine 25 MG Tab PO SCH (20:24)
[2018-07-07] MEDS: Montelukast 10 MG Tab PO SCH (20:25)
[2018-07-07] MEDS: Thiamine 100 MG Tab PO SCH (20:25)
[2018-07-08] MEDS ORDERED: LORazepam 1 MG Tab PO ONE (02:22)
[2018-07-08] MEDS: Acetaminophen 325 MG Tab PO PRN (02:30)
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
[2018-07-08] MEDS: Topiramate 25 MG Tab PO SCH ×2 (08:07→21:12)
[2018-07-08] MEDS: chlordiazePOXIDE 25 MG Cap PO SCH ×3 (08:07→21:12)
[2018-07-08] MEDS: Citalopram 20 MG Tab PO SCH (08:08)
[2018-07-08] MEDS: Remove Patch*NICOTINE PATCH TRDERM SCH (08:08)
[2018-07-08] MEDS: Nicotine 14 MG/24 Hr Patch TRDERM SCH ×2 (08:08→15:26)
[2018-07-08] MEDS: Folic Acid 1 MG Tab PO SCH (08:08)
[2018-07-08] MEDS: Pantoprazole 40 MG Tab.CR PO SCH (08:08)
[2018-07-08] MEDS: Loperamide 2 MG Cap PO PRN (12:56)
[2018-07-08] MEDS: Acetaminophen/Butalbital/Caffeine 325-50-40 MG Tab PO PRN (12:56)
--- NOTE | 2018-07-08 15:39 | PCM.PN ---
- General Info Date of Service: 07/08/18 Functional Status: Reports: Tolerating Diet, Ambulating, Urinating - Review of Systems General: Reports: No Symptoms HEENT: Reports: No Symptoms Pulmonary: Reports: No Symptoms Cardiovascular: Reports: No Symptoms Gastrointestinal: Reports: No Symptoms 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: Reports: No Symptoms Musculoskeletal: Reports: No Symptoms Skin: Reports: No Symptoms Neurological: Reports: No Symptoms Psychiatric: Reports: No Symptoms - Patient Data Vitals - Most Recent: Last Vital Signs Temp 37.2 C 07/08/18 12:00 Pulse 92 07/08/18 12:00 Resp 18 07/08/18 12:00 BP 129/92 H 07/08/18 12:00 Pulse Ox 95 07/08/18 12:14 Weight - Most Recent: 82.962 kg I&O - Last 24 Hours: Intake & Output 07/08/18 07/08/18 07/08/18 06:59 14:59 22:59 Intake Total 1200 1160 Output Total 200 Balance 1200 960 Lab Results Last 24 Hours: Laboratory Results - last 24 hr 07/08/18 07/08/18 07/08/18 Range/Units 05:25 05:25 05:28 WBC 2.70 L (3.98-10.04) K/mm3 RBC 4.47 (3.98-5.22) M/mm3 Hgb 13.3 (11.2-15.7) gm/L Hct 41.4 (34.1-44.9) % MCV 92.6 (79.4-94.8) fl MCH 29.8 (25.6-32.2) pg MCHC 32.1 L (32.2-35.5) g/dl RDW Std Deviation 46.6 H (36.4-46.3) fL Plt Count 49 L (182-369) K/mm3 MPV 12.3 (9.4-12.3) fl Neut % (Auto) 49.6 (34.0-71.1) % Lymph % (Auto) 32.6 (19.3-51.7) % [place] % (Auto) 13.7 H (4.7-12.5) % Eos % (Auto) 3.3 (0.7-5.8) Baso % (Auto) 0.4 (0.1-1.2) % Neut # (Auto) 1.34 L (1.56-6.13) K/mm3 Lymph # (Auto) 0.88 L (1.18-3.74) K/mm3 [place] # (Auto) 0.37 H (0.24-0.36) K/mm3 Eos # (Auto) 0.09 (0.04-0.36) K/mm3 Baso # (Auto) 0.01 (0.01-0.08) K/mm3 Manual Slide Review Abnormal smear Sodium 137 (136-145) mEq/L Potassium 3.7 (3.5-5.1) mEq/L Chloride 103 (98-107) mEq/L Carbon Dioxide 24 (21-32) mEq/L Anion Gap 13.7 (5-15) BUN 7 (7-18) mg/dL Creatinine 0.7 (0.55-1.02) mg/dL Est Cr Clr Drug Dosing 84.59 mL/min Estimated GFR (MDRD) > 60 (>60) mL/min BUN/Creatinine Ratio 10.0 L (14-18) Glucose 118 H (74-106) mg/dL Lactic Acid 0.7 (0.4-2.0) mmol/L Calcium 9.0 (8.5-10.1) mg/dL Magnesium 2.2 (1.8-2.4) mg/dl Total Bilirubin 0.7 (0.2-1.0) mg/dL AST 102 H (15-37) U/L ALT 132 H (14-59) U/L Alkaline Phosphatase 74 (46-116) U/L C-Reactive Protein < 0.2 (<1.0) mg/dL Total Protein 6.6 (6.4-8.2) g/dl Albumin 3.4 (3.4-5.0) g/dl Globulin 3.2 gm/dL Albumin/Globulin Ratio 1.1 (1-2) Med Orders - Current: Current Medications Acetaminophen (Tylenol) 650 mg PO Q6H PRN PRN Reason: Pain/Fever Last Admin: 07/08/18 02:30 Dose: 650 mg Acetaminophen/Butalbital/Caffeine (Fioricet 325-50-40 Mg) 1 tab PO Q6H PRN PRN Reason: Headache Last Admin: 07/08/18 12:56 Dose: 1 tab Chlordiazepoxide HCl (Librium) 25 mg PO TID [facility] Last Admin: 07/08/18 14:00 Dose: 25 mg Citalopram Hydrobromide (Celexa) 20 mg PO DAILY [facility] Last Admin: 07/08/18 08:08 Dose: 20 mg Folic Acid (Folic Acid) 1 mg PO DAILY [facility] Last Admin: 07/08/18 08:08 Dose: 1 mg Hydralazine HCl (Apresoline) 20 mg IVPUSH Q6H PRN PRN Reason: Hypertension Last Admin: 07/07/18 16:22 Dose: 20 mg Loperamide HCl (Imodium) 2 mg PO Q6H PRN PRN Reason: Diarrhea Last Admin: 07/08/18 12:56 Dose: 2 mg Lorazepam (Ativan) 1 - 3 mg IVPUSH Q1H PRN; Protocol PRN Reason: Anxiety Metoprolol Tartrate (Lopressor) 5 mg IVPUSH Q6H PRN PRN Reason: HR>120 Miscellaneous Information (Remove Patch) 1 ea TRDERM DAILY [facility] Last Admin: 07/08/18 08:08 Dose: Not Given Montelukast Sodium (Singulair) 10 mg PO BEDTIME [facility] Last Admin: 07/07/18 20:25 Dose: 10 mg Nicotine (Habitrol) 14 mg TRDERM DAILY [facility] Last Admin: 07/08/18 15:26 Dose: 14 mg Ondansetron HCl (Zofran) 4 mg IVPUSH Q8H PRN PRN Reason: Nausea/Vomiting Last Admin: 07/07/18 08:27 Dose: 4 mg Pantoprazole Sodium (Protonix) 40 mg PO DAILY@0800 [facility] Last Admin: 07/08/18 08:08 Dose: 40 mg Quetiapine Fumarate (Seroquel) 25 mg PO BEDTIME [facility] Last Admin: 07/07/18 20:24 Dose: 25 mg Sodium Chloride (Saline Flush) 10 ml FLUSH ASDIRECTED PRN PRN Reason: Keep Vein Open Last Admin: 07/06/18 09:54 Dose: 10 ml Sucralfate (Carafate) 1 gm PO QID PRN PRN Reason: Heartburn Thiamine HCl (Vitamin B-1) 100 mg PO BEDTIME [facility] Last Admin: 07/07/18 20:25 Dose: 100 mg Topiramate (Topamax) 25 mg PO BID [facility] Last Admin: 07/08/18 08:07 Dose: 25 mg Discontinued Medications Famotidine (Pepcid) 20 mg IVPUSH ONETIME ONE Stop: 07/06/18 09:37 Last Admin: 07/06/18 09:55 Dose: 20 mg Sodium Chloride (Normal Saline) 1,000 mls @ 999 mls/hr IV ONETIME FAVIAN Last Admin: 07/06/18 09:54 Dose: 999 mls/hr Sodium Chloride (Normal Saline) 1,000 mls @ 999 mls/hr IV ONETIME FAVIAN Sodium Chloride (Normal Saline) 1,000 mls @ 999 mls/hr IV ASDIRECTED [facility] Stop: 07/06/18 19:00 Last Admin: 07/06/18 19:16 Dose: 999 mls/hr Magnesium Sulfate 2 gm/ Premix 50 mls @ 25 mls/hr IV ONETIME ONE Stop: 07/06/18 19:02 Last Admin: 07/06/18 17:41 Dose: 25 mls/hr Lorazepam (Ativan) 1 mg IVPUSH ONETIME ONE Stop: 07/06/18 09:37 Last Admin: 07/06/18 09:54 Dose: 1 mg Lorazepam (Ativan) 1 mg IVPUSH ONETIME ONE Stop: 07/06/18 11:00 Last Admin: 07/06/18 11:18 Dose: 1 mg Lorazepam (Ativan) 1 mg IVPUSH ONETIME ONE Stop: 07/06/18 12:56 Last Admin: 07/06/18 13:08 Dose: 1 mg Lorazepam (Ativan) 0 mg IVPUSH Q6H PRN; Protocol PRN Reason: Anxiety Last Admin: 07/07/18 20:25 Dose: 2 mg Lorazepam (Ativan) 1 mg PO ONETIME ONE Stop: 07/08/18 02:23 Last Admin: 07/08/18 02:30 Dose: 1 mg Quetiapine Fumarate (Seroquel) 50 mg PO BEDTIME FAVIAN - Exam Quality Assessment: DVT Prophylaxis General: Alert, Oriented, Cooperative, No Acute Distress HEENT: Pupils Equal, Pupils Reactive, EOMI Neck: Trachea Midline, No JVD Lungs: Normal Respiratory Effort Cardiovascular: Regular Rate, Regular Rhythm GI/Abdominal Exam: Normal Bowel Sounds, Soft, Non-Tender, No Organomegaly, No Distention (Female) Exam: Deferred Back Exam: Normal Inspection Extremities: Normal Inspection, Non-Tender, Normal Capillary Refill Skin: Warm Neurological: No New Focal Deficit, Normal Gait, Normal Speech Psy/Mental Status: Alert, Anxious - Problem List & Annotations (1) Alcohol abuse SNOMED Code(s): 87063773 Code(s): F10.10 - ALCOHOL ABUSE, UNCOMPLICATED Status: Acute Current Visit: Yes (2) Alcohol intoxication SNOMED Code(s): 86726475 Code(s): F10.929 - ALCOHOL USE, UNSPECIFIED WITH INTOXICATION, UNSPECIFIED Status: Acute Current Visit: Yes Qualifiers: Complication of substance-induced condition: uncomplicated Qualified Code(s ): F10.920 - Alcohol use, unspecified with intoxication, uncomplicated (3) Dehydration SNOMED Code(s): 62768279 Code(s): E86.0 - DEHYDRATION Status: Acute Current Visit: No (4) GERD (gastroesophageal reflux disease) SNOMED Code(s): 396526104 Code(s): K21.9 - GASTRO-ESOPHAGEAL REFLUX DISEASE WITHOUT ESOPHAGITIS Status: Acute Current Visit: No (5) Methamphetamine use disorder, moderate SNOMED Code(s): 438693039 Code(s): F15.20 - OTHER STIMULANT DEPENDENCE, UNCOMPLICATED Status: Acute Current Visit: No (6) Recurrent seizures SNOMED Code(s): 33332048 Code(s): G40.909 - EPILEPSY, UNSP, NOT INTRACTABLE, WITHOUT STATUS EPILEPTICUS Status: Acute Current Visit: No - Problem List Review Problem List Initiated/Reviewed/Updated: Yes - My Orders Last 24 Hours: My Active Orders 07/07/18 17:05 Acetaminophen [Tylenol] 650 mg PO Q6H PRN 07/07/18 17:06 Loperamide [Imodium] 2 mg PO Q6H PRN 07/07/18 23:02 LORazepam [Ativan] 1 - 3 mg IVPUSH Q1H PRN 07/08/18 05:25 BASIC METABOLIC PANEL,BMP [CHEM] DAILY CRP [C-REACTIVE PROTEIN] [CHEM] DAILY HEPATIC FUNCTION PANEL,HFP [CHEM] Routine MAGNESIUM [CHEM] DAILY 07/08/18 09:00 Consult to Case Management/Focus Puller [CONS] Routine 07/08/18 09:39 Consult for Substance Abuse [CONS] Routine 07/08/18 10:00 Consult to Physician [CONS] Routine 07/08/18 12:40 Acetaminophen/Butalbital/Caff [Fioricet 325-50-40 MG] 1 tab PO Q6H PRN 07/08/18 Lunch Regular Diet [DIET] 07/09/18 05:00 BASIC METABOLIC PANEL,BMP [CHEM] DAILY CBC WITH AUTO DIFF [HEME] DAILY CRP [C-REACTIVE PROTEIN] [CHEM] DAILY LACTIC ACID [CHEM] DAILY MAGNESIUM [CHEM] DAILY 07/10/18 05:00 BASIC METABOLIC PANEL,BMP [CHEM] DAILY CBC WITH AUTO DIFF [HEME] DAILY CRP [C-REACTIVE PROTEIN] [CHEM] DAILY LACTIC ACID [CHEM] DAILY MAGNESIUM [CHEM] DAILY 07/11/18 05:00 BASIC METABOLIC PANEL,BMP [CHEM] DAILY CBC WITH AUTO DIFF [HEME] DAILY CRP [C-REACTIVE PROTEIN] [CHEM] DAILY LACTIC ACID [CHEM] DAILY MAGNESIUM [CHEM] DAILY - Plan Plan:: I/P: Acute: ETOH Withdrawal Symptoms/DT - Librium/Topamax - Folic acid/Thiamine/Multi-vitamin - Hydralzine and IVP BB for HR/BP control - Ativan for Abortive Seizure and Withdrawal Symptoms Alcohol Abuse--SA consult pending - Acute on Chronic - Risk factors: Hx/o ETOH abuse and chronic anxiety/depression History of seizures w/ withdrawal - Monitoring - Seizure precautions - Ativan for abortive seizures Tobacco use disorder - Smokes 1/2 pack a day - Nicotine patch - Cessation counseling Chronic: Hypertension COPD GERD Urinary retention Polycystic ovaries Arthritis Prior addiction Anxiety-- Depression--Psych consult, recommendations started. Plan: ICU Other orders as indicated above PRN meds for Withdrawal Symptoms Seizure Precautions SW d/c planning SA/Psych consults Code Status: Full code; PCP: Charleen Larios NP Additional CC's: Charleen Larios
[2018-07-08] MEDS ORDERED: Enoxaparin 40 MG/0.4 ML Syringe SUBCUT SCH (18:00)
[2018-07-08] MEDS: LORazepam 2 MG/ML SDV IVPUSH PRN (18:12)
[2018-07-08] MEDS: Montelukast 10 MG Tab PO SCH (21:12)
[2018-07-08] MEDS: Thiamine 100 MG Tab PO SCH (21:12)
[2018-07-08] MEDS: QUEtiapine 25 MG Tab PO SCH (21:12)
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
[2018-07-09] MEDS: LORazepam 2 MG/ML SDV IVPUSH PRN (02:55)
[2018-07-09] MEDS: Ondansetron 4 MG/2 ML SDV IVPUSH PRN (02:56)
[2018-07-09] MEDS: Pantoprazole 40 MG Tab.CR PO SCH (08:34)
[2018-07-09] MEDS: Topiramate 25 MG Tab PO SCH ×2 (08:35→20:49)
[2018-07-09] MEDS: chlordiazePOXIDE 25 MG Cap PO SCH ×3 (08:36→20:49)
[2018-07-09] MEDS: Folic Acid 1 MG Tab PO SCH (08:36)
[2018-07-09] MEDS: Nicotine 14 MG/24 Hr Patch TRDERM SCH (08:37)
[2018-07-09] MEDS: Remove Patch*NICOTINE PATCH TRDERM SCH (08:38)
[2018-07-09] MEDS: Citalopram 20 MG Tab PO SCH (08:48)
[2018-07-09] MEDS: Acetaminophen/Butalbital/Caffeine 325-50-40 MG Tab PO PRN (15:32)
[2018-07-09] MEDS: Loperamide 2 MG Cap PO PRN (16:10)
--- NOTE | 2018-07-09 19:27 | PCM.PN ---
- General Info Date of Service: 07/09/18 Functional Status: Reports: Pain Controlled, Tolerating Diet, Ambulating, Urinating - Review of Systems General: Reports: No Symptoms HEENT: Reports: No Symptoms Pulmonary: Reports: No Symptoms Cardiovascular: Reports: No Symptoms Gastrointestinal: Reports: No Symptoms 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: Reports: No Symptoms Musculoskeletal: Reports: No Symptoms Neurological: Reports: No Symptoms Psychiatric: Reports: Anxiety - Patient Data Vitals - Most Recent: Last Vital Signs Temp 37.2 C 07/09/18 15:54 Pulse 81 07/09/18 15:54 Resp 18 07/09/18 15:54 BP 117/81 07/09/18 15:54 Pulse Ox 98 07/09/18 15:54 Weight - Most Recent: 82.962 kg I&O - Last 24 Hours: Intake & Output 07/09/18 07/09/18 07/09/18 06:59 14:59 22:59 Intake Total 300 300 480 Output Total 500 Balance 300 300 -20 Lab Results Last 24 Hours: Laboratory Results - last 24 hr 07/09/18 07/09/18 07/09/18 Range/Units 04:50 04:50 04:50 WBC 3.04 L (3.98-10.04) K/mm3 RBC 4.38 (3.98-5.22) M/mm3 Hgb 13.3 (11.2-15.7) gm/L Hct 40.6 (34.1-44.9) % MCV 92.7 (79.4-94.8) fl MCH 30.4 (25.6-32.2) pg MCHC 32.8 (32.2-35.5) g/dl RDW Std Deviation 47.0 H (36.4-46.3) fL Plt Count 61 L (182-369) K/mm3 MPV 12.0 (9.4-12.3) fl Neut % (Auto) 51.7 (34.0-71.1) % Lymph % (Auto) 28.6 (19.3-51.7) % [place] % (Auto) 17.1 H (4.7-12.5) % Eos % (Auto) 2.0 (0.7-5.8) Baso % (Auto) 0.3 (0.1-1.2) % Neut # (Auto) 1.57 (1.56-6.13) K/mm3 Lymph # (Auto) 0.87 L (1.18-3.74) K/mm3 [place] # (Auto) 0.52 H (0.24-0.36) K/mm3 Eos # (Auto) 0.06 (0.04-0.36) K/mm3 Baso # (Auto) 0.01 (0.01-0.08) K/mm3 Manual Slide Review Abnormal smear Sodium 140 (136-145) mEq/L Potassium 3.6 (3.5-5.1) mEq/L Chloride 104 (98-107) mEq/L Carbon Dioxide 22 (21-32) mEq/L Anion Gap 17.6 H (5-15) BUN 17 (7-18) mg/dL Creatinine 0.8 (0.55-1.02) mg/dL Est Cr Clr Drug Dosing 74.02 mL/min Estimated GFR (MDRD) > 60 (>60) mL/min BUN/Creatinine Ratio 21.3 H (14-18) Glucose 115 H (74-106) mg/dL Lactic Acid 0.6 (0.4-2.0) mmol/L Calcium 9.1 (8.5-10.1) mg/dL Magnesium 2.2 (1.8-2.4) mg/dl C-Reactive Protein < 0.2 (<1.0) mg/dL Med Orders - Current: Current Medications Acetaminophen (Tylenol) 650 mg PO Q6H PRN PRN Reason: Pain/Fever Last Admin: 07/08/18 02:30 Dose: 650 mg Acetaminophen/Butalbital/Caffeine (Fioricet 325-50-40 Mg) 1 tab PO Q6H PRN PRN Reason: Headache Last Admin: 07/09/18 15:32 Dose: 1 tab Chlordiazepoxide HCl (Librium) 25 mg PO TID [facility] Last Admin: 07/09/18 15:32 Dose: 25 mg Citalopram Hydrobromide (Celexa) 20 mg PO DAILY [facility] Last Admin: 07/09/18 08:48 Dose: 20 mg Folic Acid (Folic Acid) 1 mg PO DAILY [facility] Last Admin: 07/09/18 08:36 Dose: 1 mg Hydralazine HCl (Apresoline) 20 mg IVPUSH Q6H PRN PRN Reason: Hypertension Last Admin: 07/07/18 16:22 Dose: 20 mg Loperamide HCl (Imodium) 2 mg PO Q6H PRN PRN Reason: Diarrhea Last Admin: 07/09/18 16:10 Dose: 2 mg Lorazepam (Ativan) 1 - 3 mg IVPUSH Q1H PRN; Protocol PRN Reason: Anxiety Last Admin: 07/09/18 02:55 Dose: 1 mg Metoprolol Tartrate (Lopressor) 5 mg IVPUSH Q6H PRN PRN Reason: HR>120 Miscellaneous Information (Remove Patch) 1 ea TRDERM DAILY [facility] Last Admin: 07/09/18 08:38 Dose: 1 ea Montelukast Sodium (Singulair) 10 mg PO BEDTIME [facility] Last Admin: 07/08/18 21:12 Dose: 10 mg Nicotine (Habitrol) 14 mg TRDERM DAILY [facility] Last Admin: 07/09/18 08:37 Dose: 14 mg Ondansetron HCl (Zofran) 4 mg IVPUSH Q8H PRN PRN Reason: Nausea/Vomiting Last Admin: 07/09/18 02:56 Dose: 4 mg Pantoprazole Sodium (Protonix) 40 mg PO DAILY@0800 [facility] Last Admin: 07/09/18 08:34 Dose: 40 mg Quetiapine Fumarate (Seroquel) 25 mg PO BEDTIME [facility] Last Admin: 07/08/18 21:12 Dose: 25 mg Sodium Chloride (Saline Flush) 10 ml FLUSH ASDIRECTED PRN PRN Reason: Keep Vein Open Last Admin: 07/06/18 09:54 Dose: 10 ml Sucralfate (Carafate) 1 gm PO QID PRN PRN Reason: Heartburn Thiamine HCl (Vitamin B-1) 100 mg PO BEDTIME [facility] Last Admin: 07/08/18 21:12 Dose: 100 mg Topiramate (Topamax) 25 mg PO BID [facility] Last Admin: 07/09/18 08:35 Dose: 25 mg Discontinued Medications Famotidine (Pepcid) 20 mg IVPUSH ONETIME ONE Stop: 07/06/18 09:37 Last Admin: 07/06/18 09:55 Dose: 20 mg Sodium Chloride (Normal Saline) 1,000 mls @ 999 mls/hr IV ONETIME [facility] Last Admin: 07/06/18 09:54 Dose: 999 mls/hr Sodium Chloride (Normal Saline) 1,000 mls @ 999 mls/hr IV ONETIME [facility] Sodium Chloride (Normal Saline) 1,000 mls @ 999 mls/hr IV ASDIRECTED [facility] Stop: 07/06/18 19:00 Last Admin: 07/06/18 19:16 Dose: 999 mls/hr Magnesium Sulfate 2 gm/ Premix 50 mls @ 25 mls/hr IV ONETIME ONE Stop: 07/06/18 19:02 Last Admin: 07/06/18 17:41 Dose: 25 mls/hr Lorazepam (Ativan) 1 mg IVPUSH ONETIME ONE Stop: 07/06/18 09:37 Last Admin: 07/06/18 09:54 Dose: 1 mg Lorazepam (Ativan) 1 mg IVPUSH ONETIME ONE Stop: 07/06/18 11:00 Last Admin: 07/06/18 11:18 Dose: 1 mg Lorazepam (Ativan) 1 mg IVPUSH ONETIME ONE Stop: 07/06/18 12:56 Last Admin: 07/06/18 13:08 Dose: 1 mg Lorazepam (Ativan) 0 mg IVPUSH Q6H PRN; Protocol PRN Reason: Anxiety Last Admin: 07/07/18 20:25 Dose: 2 mg Lorazepam (Ativan) 1 mg PO ONETIME ONE Stop: 07/08/18 02:23 Last Admin: 07/08/18 02:30 Dose: 1 mg Quetiapine Fumarate (Seroquel) 50 mg PO BEDTIME [facility] - Exam Quality Assessment: DVT Prophylaxis General: Alert, Oriented, Cooperative, No Acute Distress HEENT: Pupils Equal, Pupils Reactive, EOMI Neck: Trachea Midline, No JVD Lungs: Normal Respiratory Effort Cardiovascular: Regular Rate, Regular Rhythm GI/Abdominal Exam: Normal Bowel Sounds, Soft, Non-Tender, No Organomegaly, No Distention (Female) Exam: Deferred Back Exam: Normal Inspection Extremities: Normal Inspection, Non-Tender, Normal Capillary Refill Skin: Warm Neurological: No New Focal Deficit, Normal Gait, Normal Speech Psy/Mental Status: Alert, Anxious - Problem List & Annotations (1) Alcohol abuse SNOMED Code(s): 36084306 Code(s): F10.10 - ALCOHOL ABUSE, UNCOMPLICATED Status: Acute Current Visit: Yes (2) Alcohol intoxication SNOMED Code(s): 04046356 Code(s): F10.929 - ALCOHOL USE, UNSPECIFIED WITH INTOXICATION, UNSPECIFIED Status: Acute Current Visit: Yes Qualifiers: Complication of substance-induced condition: uncomplicated Qualified Code(s ): F10.920 - Alcohol use, unspecified with intoxication, uncomplicated (3) Dehydration SNOMED Code(s): 28123176 Code(s): E86.0 - DEHYDRATION Status: Acute Current Visit: No (4) GERD (gastroesophageal reflux disease) SNOMED Code(s): 360635347 Code(s): K21.9 - GASTRO-ESOPHAGEAL REFLUX DISEASE WITHOUT ESOPHAGITIS Status: Acute Current Visit: No (5) Methamphetamine use disorder, moderate SNOMED Code(s): 261801345 Code(s): F15.20 - OTHER STIMULANT DEPENDENCE, UNCOMPLICATED Status: Acute Current Visit: No (6) Recurrent seizures SNOMED Code(s): 18666215 Code(s): G40.909 - EPILEPSY, UNSP, NOT INTRACTABLE, WITHOUT STATUS EPILEPTICUS Status: Acute Current Visit: No - Problem List Review Problem List Initiated/Reviewed/Updated: Yes - My Orders Last 24 Hours: My Active Orders 07/09/18 18:09 Patient Status [ADT] Routine 07/10/18 05:00 BASIC METABOLIC PANEL,BMP [CHEM] DAILY CBC WITH AUTO DIFF [HEME] DAILY CRP [C-REACTIVE PROTEIN] [CHEM] DAILY LACTIC ACID [CHEM] DAILY MAGNESIUM [CHEM] DAILY 07/11/18 05:00 BASIC METABOLIC PANEL,BMP [CHEM] DAILY CBC WITH AUTO DIFF [HEME] DAILY CRP [C-REACTIVE PROTEIN] [CHEM] DAILY LACTIC ACID [CHEM] DAILY MAGNESIUM [CHEM] DAILY - Plan Plan:: I/P: Acute: ETOH Withdrawal Symptoms/DT - Librium/Topamax - Folic acid/Thiamine/Multi-vitamin - Hydralzine and IVP BB for HR/BP control - Ativan for Abortive Seizure and Withdrawal Symptoms Alcohol Abuse--SA consult pending - Acute on Chronic - Risk factors: Hx/o ETOH abuse and chronic anxiety/depression History of seizures w/ withdrawal - Monitoring - Seizure precautions - Ativan for abortive seizures Tobacco use disorder - Smokes 1/2 pack a day - Nicotine patch - Cessation counseling Chronic: Hypertension COPD GERD Urinary retention Polycystic ovaries Arthritis Prior addiction Anxiety-- Depression--Psych consult, recommendations started. Plan: ICU Other orders as indicated above PRN meds for Withdrawal Symptoms Seizure Precautions SW d/c planning SA/Psych consults Code Status: Full code; PCP: Charleen Larios NP Additional CC's: Charleen Larios
[2018-07-09] MEDS: Montelukast 10 MG Tab PO SCH (20:49)
[2018-07-09] MEDS: QUEtiapine 25 MG Tab PO SCH (20:49)
[2018-07-09] MEDS: Thiamine 100 MG Tab PO SCH (20:50)
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
[2018-07-10] MEDS: Pantoprazole 40 MG Tab.CR PO SCH (08:25)
[2018-07-10] MEDS: Topiramate 25 MG Tab PO SCH (08:26)
[2018-07-10] MEDS: Citalopram 20 MG Tab PO SCH (08:26)
[2018-07-10] MEDS: Folic Acid 1 MG Tab PO SCH (08:26)
[2018-07-10] MEDS: chlordiazePOXIDE 25 MG Cap PO SCH (08:26)
[2018-07-10] MEDS: Nicotine 14 MG/24 Hr Patch TRDERM SCH (08:27)
[2018-07-10] MEDS: Acetaminophen/Butalbital/Caffeine 325-50-40 MG Tab PO PRN (08:41)
[2018-07-10] MEDS: Remove Patch*NICOTINE PATCH TRDERM SCH (09:55)
[2018-07-10] MEDS: LORazepam 2 MG/ML SDV IVPUSH PRN (10:03)
[2018-07-10] MEDS ORDERED: LORazepam 1 MG Tab PO ONE (10:44)
== END 2018-07-10 12:50 | disposition home or self-care (01) | DRG 897 ==
LOC: JD.ED 09:02 → JD.ICU 16:02 → JD.MS 07-09 19:46
PROVIDERS: ADMIT Internal Medicine Cardiovascular Disease; ATTEND Internal Medicine Cardiovascular Disease
DX: F10.231 Alcohol dependence with withdrawal delirium (principal); F17.210 Nicotine dependence, cigarettes, uncomplicated; I10 Essential (primary) hypertension; J44.9 Chronic obstructive pulmonary disease, unspecified; K21.9 Gastro-esophageal reflux disease without esophagitis; R33.9 Retention of urine, unspecified; E28.2 Polycystic ovarian syndrome; M19.90 Unspecified osteoarthritis, unspecified site; F41.9 Anxiety disorder, unspecified; F32.9 Major depressive disorder, single episode, unspecified; F10.229 Alcohol dependence with intoxication, unspecified; R74.0 Nonspecific elevation of levels of transaminase and lactic acid dehydrogenase [LDH]; E86.0 Dehydration; F43.10 Post-traumatic stress disorder, unspecified; Z79.899 Other long term (current) drug therapy; Z88.8 Allergy status to other drugs, medicaments and biological substances; Z91.013 Allergy to seafood
CPT/HCPCS: 36415; 80048; 80053; 80076; 83605; 83735; 85025; 86140; 96361; 96374; 96375; 96376; 99284; 99285-25; A9270-GY; G0480; J0360; J2060; J2405; J3475; J3490; J7040

== ENCOUNTER 2018-08-01 21:47 | Emergency (ER) | payer MEDICAID ==
--- NOTE | 2018-08-01 21:56 | EDM.PDOCBH ---
ED HPI GENERAL MEDICAL PROBLEM - General Chief Complaint: Behavioral/Psych Stated Complaint: DETOX Time Seen by Provider: 08/01/18 21:51 Source of Information: Reports: Patient, Police History Limitations: Reports: Intoxication - History of Present Illness INITIAL COMMENTS - FREE TEXT/NARRATIVE: The patient presents by [place] [employer] for medical clearance. The patient does admit to drinking alcohol tonight. She denies taking any drugs. She is in hand cuffs and not very happy to be here. She denies having any pain. She did walk in with the officer. Onset: Gradual Duration: Hour(s): Severity: Moderate Improves with: Reports: None Worsens with: Reports: None Associated Symptoms: Reports: No Other Symptoms - Related Data Allergies Allergy/AdvReac Type Severity Reaction Status Date / Time shellfish derived Allergy Hives Verified 07/06/18 17:27 tuberculin,PPD,multi-puncture Allergy Difficulty Verified 07/06/18 17:27 Breathing Home Meds: Home Meds Lisinopril [Prinivil] 20 mg PO DAILY 07/07/17 [History] Montelukast Sodium 10 mg PO BEDTIME 07/07/17 [History] Omeprazole 20 mg PO DAILY 07/07/17 [History] Sucralfate [Carafate] 1 gm PO QID PRN 07/07/17 [History] Citalopram [Citalopram HBr] 20 mg PO DAILY #15 tablet 07/10/18 [Rx] Folic Acid 1 mg PO DAILY #10 tablet 07/10/18 [Rx] Nicotine [Habitrol] 14 mg TRDERM DAILY #10 patch 07/10/18 [Rx] Thiamine [Vitamin B-1] 100 mg PO BEDTIME #10 tablet 07/10/18 [Rx] Past Medical History - Past Health History Medical/Surgical History: Denies Medical/Surgical History Cardiovascular History: Reports: Hypertension Other Cardiovascular History: HTN only for 1 year- resolved Respiratory History: Reports: COPD Gastrointestinal History: Reports: GERD Other Gastrointestinal History: Acid reflux- resolved 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, 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: Polycystic Ovaries Musculoskeletal History: Reports: Arthritis Neurological History: Reports: Seizure Other Neuro History: 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 Psychiatric History: Reports: Addiction, Anxiety, Depression Other Psychiatric History: Anxiety/depression - Past Surgical History Musculoskeletal Surgical History: Reports: None Social & Family History - Family History Family Medical History: Noncontributory - Caffeine Use Caffeine Use: Reports: Soda - Living Situation & Occupation Living situation: Reports: , with Significant Other, Other (with 2 friends) Occupation: Unemployed ED ROS GENERAL - Review of Systems Review Of Systems: See Below Constitutional: Reports: No Symptoms HEENT: Reports: No Symptoms Respiratory: Reports: No Symptoms Cardiovascular: Reports: No Symptoms Endocrine: Reports: No Symptoms GI/Abdominal: Reports: No Symptoms : Reports: No Symptoms ED EXAM, BEHAVIORAL HEALTH - Physical Exam Exam: See Below Exam Limited By: Intoxication General Appearance: Alert, Other (She is not very cooperative and she is cussing at us) Ears: Normal External Exam Nose: Normal Inspection Head: Atraumatic, Normocephalic Neck: Normal Inspection Respiratory/Chest: No Respiratory Distress, Lungs Clear, Normal Breath Sounds Cardiovascular: Regular Rate, Rhythm, No Edema, No Murmur GI/Abdominal: Soft, Non-Tender, No Organomegaly, No Mass Back Exam: Normal Inspection Extremities: Normal Inspection Neurological: Alert, No Motor/Sensory Deficits, Other (Slurred speech but she could walk into the ER) COURSE, BEHAVIORAL HEALTH COMP - Course Re-Assessment/Re-Exam: The patient is medically cleared. Departure - Departure Time of Disposition: 21:55 Disposition: DC/Tfer to Court of Law En 21 Condition: Fair Clinical Impression: Alcohol abuse Alcohol intoxication Qualifiers: Complication of substance-induced condition: uncomplicated Qualified Code(s): F10.920 - Alcohol use, unspecified with intoxication, uncomplicated - Discharge Information *PRESCRIPTION DRUG MONITORING PROGRAM REVIEWED*: Not Applicable *COPY OF PRESCRIPTION DRUG MONITORING REPORT IN PATIENT SULAIMAN: Not Applicable Forms: ED Department Discharge Additional Instructions: A medical screening exam has been done and you are medically cleared to go to the [facility].
== END 2018-08-01 21:59 ==
LOC: JD.ED 21:47
DX: F10.120 Alcohol abuse with intoxication, uncomplicated (principal); F41.9 Anxiety disorder, unspecified; F32.9 Major depressive disorder, single episode, unspecified; I10 Essential (primary) hypertension; J44.9 Chronic obstructive pulmonary disease, unspecified; Z79.899 Other long term (current) drug therapy; Z91.013 Allergy to seafood; Z88.7 Allergy status to serum and vaccine
CPT/HCPCS: 99283

== ENCOUNTER 2018-09-05 17:12 | Emergency (ER) | payer MEDICAID ==
--- NOTE | 2018-09-05 19:11 | EDM.PDOC ---
ED HPI GENERAL MEDICAL PROBLEM - General Chief Complaint: Upper Extremity Injury/Pain Stated Complaint: RIGHT ARM INJURY Time Seen by Provider: 09/05/18 18:52 Source of Information: Reports: Patient, Police History Limitations: Reports: Intoxication - History of Present Illness INITIAL COMMENTS - FREE TEXT/NARRATIVE: The patient presents with left wrist weakness. She says she was going down some spiral stairs and she tripped and fell and hurt her right wrist. She went to [facility] and they did x-rays and there was no fracture. She came here to get another look at it. She cannot dorsiflex her wrist. She cannot spread apart her fingers. She does not have much pain now. She does admit to drinking today. She has been out of her room and causing trouble the police were called to calm her down. She complains of no other injuries. Dr Brown was consulted by phone and he reviewed the x-ray and there was no fracture but he feels the patient has a radial nerve palsy. 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: alcohol Right Wrist Pain Score (Numeric/FACES): 0 - Related Data Allergies Allergy/AdvReac Type Severity Reaction Status Date / Time shellfish derived Allergy Hives Verified 07/06/18 17:27 tuberculin,PPD,multi-puncture Allergy Difficulty Verified 07/06/18 17:27 Breathing Home Meds: Home Meds Omeprazole 20 mg PO DAILY 07/07/17 [History] Sucralfate [Carafate] 1 gm PO QID PRN 07/07/17 [History] Past Medical History - Past Health History Medical/Surgical History: Denies Medical/Surgical History Cardiovascular History: Reports: Hypertension Other Cardiovascular History: HTN only for 1 year- resolved Respiratory History: Reports: COPD Gastrointestinal History: Reports: GERD Other Gastrointestinal History: Acid reflux- resolved 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, 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: Polycystic Ovaries Musculoskeletal History: Reports: Arthritis Neurological History: Reports: Seizure Other Neuro History: 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 Psychiatric History: Reports: Addiction, Anxiety, Depression Other Psychiatric History: Anxiety/depression - Infectious Disease History Other Infectious Disease History: Pt refused to answer - Past Surgical History Other HEENT Surgeries/Procedures: Pt refused to answer past medical history questions Musculoskeletal Surgical History: Reports: None Social & Family History - Family History Family Medical History: Noncontributory - Tobacco Use Smoking Status *Q: Current Every Day Smoker Years of Tobacco use: 24 Packs/Tins Daily: 0.5 - Caffeine Use Caffeine Use: Reports: Soda Caffeine Use Comment: pt refused to answer - Recreational Drug Use Recreational Drug Use: No - Living Situation & Occupation Living situation: Reports: , with Significant Other, Other (with 2 friends) Occupation: Unemployed Review of Systems - Review of Systems Review Of Systems: See Below Constitutional: Reports: No Symptoms Eyes: Reports: No Symptoms Ears: Reports: No Symptoms Nose: Reports: No Symptoms Mouth/Throat: Reports: No Symptoms Respiratory: Reports: No Symptoms Cardiovascular: Reports: No Symptoms GI/Abdominal: Reports: No Symptoms 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: Reports: No Symptoms Musculoskeletal: Reports: Other (Right wrist pain and weakness) ED EXAM, GENERAL - Physical Exam Exam: See Below Exam Limited By: Intoxication General Appearance: Alert, No Apparent Distress Ears: Normal External Exam Nose: Normal Inspection Head: Atraumatic, Normocephalic Neck: Normal Inspection Respiratory/Chest: No Respiratory Distress Extremities: Other (The patient cannot dorsiflex her right wrist. She cannot spread appart her fingers. She can touch her middle finger with her thumb. She does have a good pulse and she can feel me touching her fingers. She does have some ecchymosis to the dorsum of the hand. This appears to be older then 1 day.) Course - Vital Signs Last Recorded V/S: Last Vital Signs Temp 97.5 F 09/05/18 17:33 Pulse 100 09/05/18 17:33 Resp 20 09/05/18 17:33 BP 136/102 H 09/05/18 17:33 Pulse Ox 96 09/05/18 17:33 - Orders/Labs/Meds Orders: Active Orders 24 hr Category Date Time Status Durable Medical Equipment for Discharge [DME for Oth 09/05/18 19:05 Ordered Discharge] [COMM] Stat - Re-Assessments/Exams Free Text/Narrative Re-Assessment/Exam: 09/05/18 19:11 She has a radial nerve palsy. I suspect this injury may be older then this morning. The ecchymosis on her hand looks older then that. I looked at the x- ray and there is no fracture. I will put her in a velcro splint and have her follow up with neurology. Departure - Departure Time of Disposition: 19:15 Disposition: Home, Self-Care 01 Condition: Good Clinical Impression: Acute radial nerve palsy of right upper extremity Fall Qualifiers: Encounter type: initial encounter Qualified Code(s): W19.XXXA - Unspecified fall, initial encounter - Discharge Information *PRESCRIPTION DRUG MONITORING PROGRAM REVIEWED*: Not Applicable *COPY OF PRESCRIPTION DRUG MONITORING REPORT IN PATIENT SULAIMAN: Not Applicable Referrals: Charleen Larios [employer] [Primary Care Provider] - 1 Week Forms: ED Department Discharge Additional Instructions: Take tylenol or motrin for any pain. Wear the splint. Call [facility] tomorrow to follow up with one of their neurologists like Dr Dumont. The number is . Please return if you are worse. - My Orders Last 24 Hours: My Active Orders 09/05/18 19:05 Durable Medical Equipment for Discharge [DME for Discharge] [COMM] Stat - Assessment/Plan Last 24 Hours: My Active Orders 09/05/18 19:05 Durable Medical Equipment for Discharge [DME for Discharge] [COMM] Stat
== END 2018-09-05 19:20 | disposition home or self-care (01) ==
LOC: JD.ED 17:12
DX: G56.31 Lesion of radial nerve, right upper limb (principal); I10 Essential (primary) hypertension; K21.9 Gastro-esophageal reflux disease without esophagitis; F17.210 Nicotine dependence, cigarettes, uncomplicated; Z88.7 Allergy status to serum and vaccine; Z91.013 Allergy to seafood; Z79.899 Other long term (current) drug therapy; W10.8XXA Fall (on) (from) other stairs and steps, initial encounter
CPT/HCPCS: 99283

== ENCOUNTER 2018-10-16 17:10 | Emergency (ER) | payer MEDICAID ==
[2018-10-16] MEDS ORDERED: Sodium Chloride 0.9% 10 ML Syringe FLUSH PRN (17:45)
[2018-10-16] MEDS ORDERED: Ondansetron 4 MG/2 ML SDV IVPUSH ONE (17:45)
[2018-10-16] MEDS ORDERED: Sodium Chloride 0.9% 1,000 ML IV ONE (17:45)
[2018-10-16] MEDS ORDERED: Folic Acid 1 MG Tab PO ONE (17:45)
[2018-10-16] MEDS ORDERED: Thiamine 100 MG in Sodium Chloride 0.9% 100 ML IV ONE (17:46)
[2018-10-16] MEDS ORDERED: Famotidine 20 MG/2 ML SDV IVPUSH ONE (17:46)
--- NOTE | 2018-10-16 17:49 | EDM.PDOCBH ---
<Ayaz Rodriguez - Last Filed: 10/17/18 03:47> ED HPI GENERAL MEDICAL PROBLEM - General Chief Complaint: Drug or Alcohol Abuse Stated Complaint: MEDICAL CLEARANCE Time Seen by Provider: 10/16/18 17:28 - Related Data Allergies Allergy/AdvReac Type Severity Reaction Status Date / Time shellfish derived Allergy Hives Verified 10/16/18 17:21 tuberculin,PPD,multi-puncture Allergy Difficulty Verified 10/16/18 17:21 Breathing Home Meds: Home Meds buPROPion [Wellbutrin SR] 150 mg PO DAILY 10/16/18 [History] LORazepam [Ativan] 0.5 mg PO ASDIRECTED #12 tablet 10/17/18 [Rx] Ondansetron [Zofran ODT] 4 mg PO Q6H PRN #20 tab.dis 10/17/18 [Rx] COURSE, BEHAVIORAL HEALTH COMP - Course Vital Signs: Last Vital Signs Temp 98.7 F 10/16/18 17:17 Pulse 107 H 10/16/18 17:17 Resp 16 10/16/18 17:17 BP 144/103 H 10/16/18 17:17 Pulse Ox 93 L 10/16/18 17:17 Orders, Labs, Meds: Active Orders 24 hr Category Date Time Status EKG 12 Lead [EKG Documentation Completion] [RC] STAT Care 10/16/18 17:45 Active Peripheral IV Care [RC] . DIRECTED Care 10/16/18 17:46 Active Peripheral IV Insertion Adult [OM.PC] Routine Oth 10/16/18 17:45 Ordered Laboratory Tests 10/16/18 10/16/18 10/16/18 Range/Units 18:00 18:00 18:00 WBC 6.64 (3.98-10.04) K/mm3 RBC 4.92 (3.98-5.22) M/mm3 Hgb 15.1 D (11.2-15.7) gm/L Hct 45.3 H (34.1-44.9) % MCV 92.1 (79.4-94.8) fl MCH 30.7 (25.6-32.2) pg MCHC 33.3 (32.2-35.5) g/dl RDW Std Deviation 41.8 (36.4-46.3) fL Plt Count 203 D (182-369) K/mm3 MPV 10.6 (9.4-12.3) fl Neut % (Auto) 64.1 (34.0-71.1) % Lymph % (Auto) 24.8 (19.3-51.7) % [place] % (Auto) 9.8 (4.7-12.5) % Eos % (Auto) 0.6 L (0.7-5.8) Baso % (Auto) 0.5 (0.1-1.2) % Neut # (Auto) 4.26 (1.56-6.13) K/mm3 Lymph # (Auto) 1.65 (1.18-3.74) K/mm3 [place] # (Auto) 0.65 H (0.24-0.36) K/mm3 Eos # (Auto) 0.04 (0.04-0.36) K/mm3 Baso # (Auto) 0.03 (0.01-0.08) K/mm3 PT 9.7 (9.5-12.1) SECONDS INR < 0.93 APTT 24 D (24-31) SECONDS Sodium 141 (136-145) mEq/L Potassium 3.4 L (3.5-5.1) mEq/L Chloride 103 (98-107) mEq/L Carbon Dioxide 23 (21-32) mEq/L Anion Gap 18.4 H (5-15) BUN 14 (7-18) mg/dL Creatinine 0.8 (0.55-1.02) mg/dL Est Cr Clr Drug Dosing 74.02 mL/min Estimated GFR (MDRD) > 60 (>60) mL/min BUN/Creatinine Ratio 17.5 (14-18) Glucose 86 (74-106) mg/dL Calcium 9.3 (8.5-10.1) mg/dL Magnesium 2.2 (1.8-2.4) mg/dl Total Bilirubin 0.4 (0.2-1.0) mg/dL AST 44 H (15-37) U/L ALT 98 H (14-59) U/L Alkaline Phosphatase 85 (46-116) U/L Total Protein 7.4 (6.4-8.2) g/dl Albumin 4.0 (3.4-5.0) g/dl Globulin 3.4 gm/dL Albumin/Globulin Ratio 1.2 (1-2) Urine Color (Yellow) Urine Appearance (Clear) Urine pH (5.0-8.0) Ur Specific [place] (1.005-1.030) Urine Protein (Negative) Urine Glucose (UA) (Negative) Urine Ketones (Negative) Urine Occult Blood (Negative) Urine Nitrite (Negative) Urine Bilirubin (Negative) Urine Urobilinogen (0.2-1.0) Ur Leukocyte Esterase (Negative) Urine RBC (0-5) /hpf Urine WBC (0-5) /hpf Ur Squamous Epith Cells (0-5) /hpf Urine Bacteria (FEW) /hpf Urine Mucus (FEW) /hpf Urine Opiates Screen (YOQKSA=263) Ur Buprenorphine Scrn (CUTOFF=10) Ur Oxycodone Screen (JNY4ZR=641) Urine Methadone Screen (CIDPKX=822) Ur Propoxyphene Screen (BWAZGM=238) Ur Barbiturates Screen (LKEWEO=961) Ur Tricyclics Screen (CQDVRW=856) Ur Phencyclidine Scrn (CUTOFF=25) Ur Amphetamine Screen (XKPUUH=631) U Methamphetamines Scrn (GMSRHI=360) U Benzodiazepines Scrn (WHLEYX=097) U Cocaine Metab Screen (XPZUXB=034) U Marijuana (THC) Screen (CUTOFF=50) Ethyl Alcohol 0.07 (0.00) gm% 10/16/18 10/16/18 Range/Units 18:48 18:48 WBC (3.98-10.04) K/mm3 RBC (3.98-5.22) M/mm3 Hgb (11.2-15.7) gm/L Hct (34.1-44.9) % MCV (79.4-94.8) fl MCH (25.6-32.2) pg MCHC (32.2-35.5) g/dl RDW Std Deviation (36.4-46.3) fL Plt Count (182-369) K/mm3 MPV (9.4-12.3) fl Neut % (Auto) (34.0-71.1) % Lymph % (Auto) (19.3-51.7) % [place] % (Auto) (4.7-12.5) % Eos % (Auto) (0.7-5.8) Baso % (Auto) (0.1-1.2) % Neut # (Auto) (1.56-6.13) K/mm3 Lymph # (Auto) (1.18-3.74) K/mm3 [place] # (Auto) (0.24-0.36) K/mm3 Eos # (Auto) (0.04-0.36) K/mm3 Baso # (Auto) (0.01-0.08) K/mm3 PT (9.5-12.1) SECONDS INR APTT (24-31) SECONDS Sodium (136-145) mEq/L Potassium (3.5-5.1) mEq/L Chloride (98-107) mEq/L Carbon Dioxide (21-32) mEq/L Anion Gap (5-15) BUN (7-18) mg/dL Creatinine (0.55-1.02) mg/dL Est Cr Clr Drug Dosing mL/min Estimated GFR (MDRD) (>60) mL/min BUN/Creatinine Ratio (14-18) Glucose (74-106) mg/dL Calcium (8.5-10.1) mg/dL Magnesium (1.8-2.4) mg/dl Total Bilirubin (0.2-1.0) mg/dL AST (15-37) U/L ALT (14-59) U/L Alkaline Phosphatase (46-116) U/L Total Protein (6.4-8.2) g/dl Albumin (3.4-5.0) g/dl Globulin gm/dL Albumin/Globulin Ratio (1-2) Urine Color Dark yellow (Yellow) Urine Appearance Clear (Clear) Urine pH 6.0 (5.0-8.0) Ur Specific [place] 1.025 (1.005-1.030) Urine Protein 1+ H (Negative) Urine Glucose (UA) Negative (Negative) Urine Ketones Negative (Negative) Urine Occult Blood Trace-lysed H (Negative) Urine Nitrite Negative (Negative) Urine Bilirubin Negative (Negative) Urine Urobilinogen 0.2 (0.2-1.0) Ur Leukocyte Esterase Negative (Negative) Urine RBC 0-5 (0-5) /hpf Urine WBC 0-5 (0-5) /hpf Ur Squamous Epith Cells 0-5 (0-5) /hpf Urine Bacteria Few (FEW) /hpf Urine Mucus Few (FEW) /hpf Urine Opiates Screen Negative (DNBEBV=585) Ur Buprenorphine Scrn Negative (CUTOFF=10) Ur Oxycodone Screen Negative (OZN4TS=676) Urine Methadone Screen Negative (FVXCRS=598) Ur Propoxyphene Screen Negative (UVNKRC=006) Ur Barbiturates Screen Negative (ZTTFWB=311) Ur Tricyclics Screen Negative (PGIBJA=990) Ur Phencyclidine Scrn Negative (CUTOFF=25) Ur Amphetamine Screen Negative (EGIUZN=766) U Methamphetamines Scrn Negative (QCZZSN=361) U Benzodiazepines Scrn Presumptive positive H (UTRXQS=531) U Cocaine Metab Screen Negative (XOULBF=167) U Marijuana (THC) Screen Negative (CUTOFF=50) Ethyl Alcohol (0.00) gm% Medications Discontinued Medications Generic Name Dose Route Start Last Admin Trade Name Freq PRN Reason Stop Dose Admin Famotidine 20 mg 10/16/18 17:46 10/16/18 18:07 Pepcid IVPUSH 10/16/18 17:47 20 mg ONETIME ONE Administration Folic Acid 1 mg 10/16/18 17:45 10/16/18 18:05 Folic Acid PO 10/16/18 17:46 1 mg ONETIME ONE Administration Sodium Chloride 1,000 mls @ 999 mls/hr 10/16/18 17:45 10/16/18 18:00 Normal Saline IV 10/16/18 18:45 999 mls/hr ONETIME ONE Administration Thiamine HCl 100 mg/ Sodium 101 mls @ 202 mls/hr 10/16/18 17:46 10/16/18 17: 52 Chloride IV 10/16/18 17:47 Not Given ONETIME ONE Dextrose/Lactated Ringer's 1,000 mls @ 125 mls/hr 10/16/18 20:00 Dextrose 5%-Lactated Ringers IV ASDIRECTED [facility] Dextrose/Lactated Ringer's 1,000 mls @ 125 mls/hr 10/16/18 20:04 10/16/18 20: 16 Dextrose 5%-Lactated Ringers IV 10/17/18 04:03 125 mls/hr ONETIME ONE Administration Ibuprofen 600 mg 10/17/18 11:14 10/17/18 11:21 Motrin PO 10/17/18 11:15 600 mg ONETIME ONE Administration Lorazepam 0.5 mg 10/16/18 19:26 10/16/18 23:25 Ativan IVPUSH 10/16/18 19:27 0.5 mg ONETIME ONE Administration Ondansetron HCl 4 mg 10/16/18 17:45 10/16/18 18:05 Zofran IVPUSH 10/16/18 17:46 4 mg ONETIME ONE Administration Potassium Chloride 40 meq 10/16/18 21:00 Klor-Con M20 PO BEDTIME FAVIAN Potassium Chloride 40 meq 10/16/18 19:26 10/16/18 20:17 Klor-Con M20 PO 10/16/18 19:27 40 meq NOW STA Administration Sodium Chloride 10 ml 10/16/18 17:45 10/16/18 18:07 Saline Flush FLUSH 10 ml ASDIRECTED PRN Administration Keep Vein Open Thiamine HCl 100 mg 10/16/18 17:51 10/16/18 18:09 Vitamin B-1 IVPUSH 10/16/18 17:52 100 mg ONETIME ONE Administration Re-Assessment/Re-Exam Date: 10/17/18 (0345: Patient is up to the bathroom. Her IV fluids are pretty well done and no be discontinued. Hopefully she will go back to sleep for a while.) Departure - Departure Disposition: DC/Tfer to [facility]pt [facility]hab Fac [facility] Clinical Impression: Alcohol abuse - Discharge Information Prescriptions: LORazepam [Ativan] 0.5 mg PO ASDIRECTED #12 tablet Ondansetron [Zofran ODT] 4 mg PO Q6H PRN #20 tab.dis PRN Reason: Nausea Referrals: Red Sin PA-C [Primary Care Provider] - Additional Instructions: Ativan as prescribed. 1 tab 3 times a day for 2 days then 1 tab twice a day for 2 days then 1 tab daily for 2 days. Zofran 1 tab sublingual every 6 hours as needed for nausea. Drink plenty of fluids. go to [facility] as planned. Please return to the ER if your symptoms change or worsen. - My Orders Last 24 Hours: My Active Orders 10/16/18 17:45 EKG 12 Lead [EKG Documentation Completion] [RC] STAT Peripheral IV Insertion Adult [OM.PC] Routine 10/16/18 17:46 Peripheral IV Care [RC] . DIRECTED - Assessment/Plan Last 24 Hours: My Active Orders 10/16/18 17:45 EKG 12 Lead [EKG Documentation Completion] [RC] STAT Peripheral IV Insertion Adult [OM.PC] Routine 10/16/18 17:46 Peripheral IV Care [RC] . DIRECTED <Kelsey Bob - Last Filed: 10/17/18 13:42> ED HPI GENERAL MEDICAL PROBLEM - General Source of Information: Reports: Patient, Old Records History Limitations: Reports: No Limitations - History of Present Illness INITIAL COMMENTS - FREE TEXT/NARRATIVE: 53-year-old female presents for medical clearance for [facility]. Patient states that there will in a bed for her there, however, due to her history of difficult detox she was instructed to come to the ER for medical clearance. Patient reports prior to going to intermediate she had a pint of whiskey and a fifth of rum. She said the last day and a half in intermediate and released around 1500 today. She was she was given Ativan and thiamine while in intermediate however, once she was released she went to the store and acquired through 4 "shooters". Per her last dose of Ativan was around 1330. She states after being released from intermediate she was experiencing symptoms of being shaky and clammy. She states feeling pinprick sensation and having muscle tremors and anxiety. She reports that she has a cough from smoking. She has been feeling nauseous but no vomiting. She reports in the past she has had seizures with alcohol withdrawal and hallucinations. Patient reports that she's been living in [place] for the last 2 years. Patient reports she has been court ordered to go to [facility]. Patient denies any chance of . She states that she is postmenopausal. Patient denies any illicit drug use. She states that she has had several " false positive" methamphetamine UDS. Since she's never use this for. Review the patient's records show she has been seen in our ER and admitted to our hospital on numerous occasions for alcohol abuse. Most recently she was admitted beginning of July for a detox. She was seen in July for medical clearance to go to the intermediate. 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 Psychiatric History: Reports: Addiction, Anxiety, Depression Other Psychiatric History: Anxiety/depression - Infectious Disease History Other Infectious Disease History: Pt refused to answer - Past Surgical History Other HEENT Surgeries/Procedures: Pt refused to answer past medical history questions Musculoskeletal Surgical History: Reports: None Social & Family History - Family History Family Medical History: Noncontributory - Tobacco Use Smoking Status *Q: Current Every Day Smoker Years of Tobacco use: 25 Packs/Tins Daily: 0.5 - Caffeine Use Caffeine Use: Reports: Soda Caffeine Use Comment: pt refused to answer - Alcohol Use Days Per Week of Alcohol Use: 7 Number of Drinks Per Day: 10 Total Drinks Per Week: 70 Date of Last Drink: 10/16/18 Time of Last Drink: 16:00 - Recreational Drug Use Recreational Drug Use: No - Living Situation & Occupation Living situation: Reports: , with Significant Other, Other (with 2 friends) Occupation: Unemployed ED ROS GENERAL - Review of Systems Review Of Systems: See Below Constitutional: Reports: Diaphoresis Cardiovascular: Reports: Chest Pain GI/Abdominal: Reports: Abdominal Pain, Nausea. Denies: Vomiting Neurological: Reports: Tingling, Tremors. Denies: Seizure (none recently; h.o with etoh eithdraw) Psychiatric: Reports: Anxiety. Denies: Hallucinations (none recently; h/o with etoh withdraw) ED EXAM, BEHAVIORAL HEALTH - Physical Exam Exam: See Below Exam Limited By: No Limitations General Appearance: Alert, WD/WN, No Apparent Distress Ears: Normal External Exam, Normal Canal, Hearing Grossly Normal, Normal TMs Nose: Normal Inspection Throat/Mouth: Normal Inspection, Normal Lips, Normal Voice, No Airway Compromise Respiratory/Chest: No Respiratory Distress, Lungs Clear, Normal Breath Sounds Cardiovascular: Normal Peripheral Pulses, Regular Rate, Rhythm, No Murmur GI/Abdominal: Normal Bowel Sounds, Soft, Non-Tender Neurological: Alert, Normal Mood/Affect, Normal Cognition. No: Tremor Psychiatric: Alert, Normal Affect, Normal Cognition. No: Auditory Hallucinations, Visual Hallucinations Skin Exam: Warm, Dry, Normal color EKG INTERPRETATION EKG Date: 10/16/18 Time: 17:52 Rhythm: NSR Rate (Beats/Min): 94 [place]: Normal P-Wave: Present QRS: Normal ST-T: Normal QT: Normal EKG Interpretation Comments: NSR at 94 bpm. No acute ischemic changes. Reviewed by myself and Dr. Villarreal. COURSE, BEHAVIORAL HEALTH COMP - Course Re-Assessment/Re-Exam: 20:00 chest xray shows no acute intrathoracic process. Checked and the patient. She is sleeping at this time. I ordered her some by mouth potassium as well as some Ativan. I contacted the crisis line at [facility] regarding a bed for this patient. They informed me that he had no intention of taking her tonight as they do not have a bed for tonight. They asked that we hold her in the ER tonight and they will pick her up in the morning. 23:14 Patient has been sleeping during her ER stay. Informed Dr. Rodriguez who will look after her over the night. Departure - Departure Time of Disposition: 11:07 Condition: Good - Discharge Information *PRESCRIPTION DRUG MONITORING PROGRAM REVIEWED*: No *COPY OF PRESCRIPTION DRUG MONITORING REPORT IN PATIENT SULAIMAN: No
[2018-10-16] MEDS ORDERED: Thiamine 200 MG/2 ML MDV IVPUSH ONE (17:51)
[2018-10-16] MEDS ORDERED: LORazepam 2 MG/ML SDV IVPUSH ONE (19:26)
[2018-10-16] MEDS ORDERED: Potassium Chloride 20 MEQ Tab.ER PO STA (19:26)
[2018-10-16] MEDS ORDERED: Dextrose 5%-Lactated Ringers 1,000 ML IV SCH (20:00)
[2018-10-16] MEDS ORDERED: Dextrose 5%-Lactated Ringers 1,000 ML IV ONE (20:04)
[2018-10-16] MEDS ORDERED: Potassium Chloride 20 MEQ Tab.ER PO SCH (21:00)
--- NOTE | 2018-10-17 08:30 | CR ---
Chest: Two views of the chest were obtained. Comparison: Prior chest x-ray of 11/29/17. Heart size and mediastinum are normal. Lungs are clear. Bony structures are unremarkable. Impression: 1. Nothing acute is seen on two-view chest x-ray. Diagnostic code #1
[2018-10-17] MEDS ORDERED: Ibuprofen 600 MG Tab PO ONE (11:14)
== END 2018-10-17 11:22 ==
LOC: JD.ED 17:10
DX: F10.10 Alcohol abuse, uncomplicated (principal); I10 Essential (primary) hypertension; J44.9 Chronic obstructive pulmonary disease, unspecified; F41.9 Anxiety disorder, unspecified; F32.9 Major depressive disorder, single episode, unspecified; F17.210 Nicotine dependence, cigarettes, uncomplicated
CPT/HCPCS: 36415; 71046; 80053; 80306; 81001; 83735; 85025; 85610; 85730; 93005; 96361; 96374; 96375; 99284; A9270; G0480; J2060; J2405; J3411; J3490; J7040; J7042; 93010; 99283

== ENCOUNTER 2018-10-21 17:19 | Emergency (ER) | payer MEDICAID ==
[2018-10-21] MEDS ORDERED: Sodium Chloride 0.9% 10 ML Syringe FLUSH PRN (17:34)
--- NOTE | 2018-10-21 19:09 | EDM.PDOC ---
ED HPI GENERAL MEDICAL PROBLEM - General Chief Complaint: Chest Pain Stated Complaint: SOB SWEATING AND TINGLING Time Seen by Provider: 10/21/18 17:50 Source of Information: Reports: Patient History Limitations: Reports: No Limitations - History of Present Illness INITIAL COMMENTS - FREE TEXT/NARRATIVE: 53-year-old female sent over from [facility] for evaluation and treatment of numbness and tingling in extremities, diaphoresis and shortness of breath. Patient has been to [facility] for just shy of a week. She was seen by myself in the ER for medical clearance. At that time she was felt to be low risk for any DTs and started on some Ativan to help with tremors and anxiety; discharged to the [facility]. She was put on low-dose ativen. she did spend the night in the ER and did very well with only 0.5 of Ativan on the ED. Patient states that she has been fee short of breath and experiencing chest pain since going to the [facility]. When I did see her she did report some minor chest discomfort at that time an EKG and chest x-ray were done which were normal. Her current symptoms include chest pain, only present when she lays flat, shortness of breath, diaphoresis, tingling in extremities, headaches, nausea and anxiety. She denies any vomiting. She's not had any seizures. No hallucinations recently. Her last alcohol intake was last week. when She was in the seen in the ER her blood etoh was 0.07. As stated she did spend the night was given fluids while she was here. Generalized Pain Score (Numeric/FACES): 5 - Related Data Allergies Allergy/AdvReac Type Severity Reaction Status Date / Time shellfish derived Allergy Hives Verified 10/16/18 17:21 tuberculin,PPD,multi-puncture Allergy Difficulty Verified 10/16/18 17:21 Breathing Home Meds: Home Meds buPROPion [Wellbutrin SR] 150 mg PO DAILY 10/16/18 [History] LORazepam [Ativan] 0.5 mg PO BID 10/21/18 [History] LORazepam [Ativan] 1 mg PO DAILY #18 tablet 10/21/18 [Rx] Omeprazole 20 mg PO DAILY 10/21/18 [History] Ondansetron [Zofran ODT] 4 mg PO Q6H PRN #15 tab.dis 10/21/18 [Rx] cloNIDine [Catapres] 0.1 mg PO BEDTIME 10/21/18 [History] Past Medical History - Past Health History Medical/Surgical History: Denies Medical/Surgical History HEENT History: Reports: Impaired Vision Cardiovascular History: Reports: Hypertension Other Cardiovascular History: HTN only for 1 year- resolved Respiratory History: Reports: COPD Gastrointestinal History: Reports: GERD Other Gastrointestinal History: Acid reflux- resolved 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, Urinary CHEMICAL DEPENDENCY THERAPIST History: Reports: Polycystic Ovaries Musculoskeletal History: Reports: Arthritis Neurological History: Reports: Seizure, Other (See Below) Other Neuro History: 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 Psychiatric History: Reports: Addiction, Anxiety, Depression Other Psychiatric History: Anxiety/depression - Infectious Disease History Other Infectious Disease History: Pt refused to answer - Past Surgical History Musculoskeletal Surgical History: Reports: None Social & Family History - Family History Family Medical History: Noncontributory - Tobacco Use Smoking Status *Q: Current Every Day Smoker Years of Tobacco use: 20 Packs/Tins Daily: 0.3 - Caffeine Use Caffeine Use: Reports: Soda Caffeine Use Comment: pt refused to answer - Living Situation & Occupation Living situation: Reports: , with Significant Other, Other (with 2 friends) Occupation: Unemployed ED ROS GENERAL - Review of Systems Review Of Systems: See Below Constitutional: Reports: Diaphoresis Respiratory: Reports: Shortness of Breath Cardiovascular: Reports: Chest Pain (With laying flat) GI/Abdominal: Reports: Nausea. Denies: Vomiting Neurological: Reports: Headache, Numbness (extremities), Tingling (extremities) . Denies: Seizure (None recently) Psychiatric: Denies: Hallucinations (None recently) ED EXAM, GENERAL - Physical Exam Exam: See Below Exam Limited By: No Limitations General Appearance: Alert, WD/WN, No Apparent Distress Eye Exam: Bilateral Eye: EOMI, Normal Inspection, PERRL Ears: Normal External Exam Nose: Normal Inspection Throat/Mouth: Normal Inspection, Normal Lips, Normal Voice, No Airway Compromise Neck: Normal Inspection Respiratory/Chest: No Respiratory Distress, Lungs Clear, Normal Breath Sounds Cardiovascular: Normal Peripheral Pulses, Regular Rate, Rhythm, No Murmur GI/Abdominal: Normal Bowel Sounds, Soft, Non-Tender Extremities: Normal Inspection Neurological: Alert, Oriented, Normal Cognition, Normal Gait, Other (no tremor) Psychiatric: Normal Affect, Normal Mood Skin Exam: Warm, Dry, Normal Color EKG INTERPRETATION EKG Date: 10/21/18 Time: 18:00 Rhythm: NSR Rate (Beats/Min): 77 [place]: Normal P-Wave: Present QRS: Normal ST-T: Normal QT: Normal EKG Interpretation Comments: NSR At [address]-T changes. Reviewed by myself and Dr. Shaw. No change from ekg done October,. Course - Vital Signs Last Recorded V/S: Last Vital Signs Temp 98.1 F 10/21/18 17:28 Pulse 86 10/21/18 17:28 Resp 18 10/21/18 17:28 BP 154/95 H 10/21/18 17:28 Pulse Ox 97 10/21/18 17:28 - Orders/Labs/Meds Labs: Laboratory Tests 10/21/18 10/21/18 10/21/18 Range/Units 17:55 17:55 17:55 WBC 7.37 (3.98-10.04) K/mm3 RBC 4.60 (3.98-5.22) M/mm3 Hgb 14.1 (11.2-15.7) gm/L Hct 43.5 (34.1-44.9) % MCV 94.6 (79.4-94.8) fl MCH 30.7 (25.6-32.2) pg MCHC 32.4 (32.2-35.5) g/dl RDW Std Deviation 42.6 (36.4-46.3) fL Plt Count 229 (182-369) K/mm3 MPV 10.9 (9.4-12.3) fl Neut % (Auto) 60.0 (34.0-71.1) % Lymph % (Auto) 27.0 (19.3-51.7) % [place] % (Auto) 11.7 (4.7-12.5) % Eos % (Auto) 0.7 (0.7-5.8) Baso % (Auto) 0.5 (0.1-1.2) % Neut # (Auto) 4.42 (1.56-6.13) K/mm3 Lymph # (Auto) 1.99 (1.18-3.74) K/mm3 [place] # (Auto) 0.86 H (0.24-0.36) K/mm3 Eos # (Auto) 0.05 (0.04-0.36) K/mm3 Baso # (Auto) 0.04 (0.01-0.08) K/mm3 PT 9.7 (9.5-12.1) SECONDS INR < 0.93 APTT 25 (24-31) SECONDS D-Dimer, Quantitative (0.19-0.50) mg/L Sodium 141 (136-145) mEq/L Potassium 4.2 (3.5-5.1) mEq/L Chloride 105 (98-107) mEq/L Carbon Dioxide 23 (21-32) mEq/L Anion Gap 17.2 H (5-15) BUN 17 (7-18) mg/dL Creatinine 0.9 (0.55-1.02) mg/dL Est Cr Clr Drug Dosing 65.80 mL/min Estimated GFR (MDRD) > 60 (>60) mL/min BUN/Creatinine Ratio 18.9 H (14-18) Glucose 112 H (74-106) mg/dL Calcium 9.2 (8.5-10.1) mg/dL Magnesium (1.8-2.4) mg/dl Total Bilirubin 0.3 (0.2-1.0) mg/dL AST 39 H (15-37) U/L ALT 99 H (14-59) U/L Alkaline Phosphatase 105 (46-116) U/L Troponin I < 0.017 (0.00-0.056) ng/mL Total Protein 7.1 (6.4-8.2) g/dl Albumin 3.7 (3.4-5.0) g/dl Globulin 3.4 gm/dL Albumin/Globulin Ratio 1.1 (1-2) Lipase 116 (73-393) U/L Ethyl Alcohol 0.00 (0.00) gm% 10/21/18 10/21/18 Range/Units 17:55 17:55 WBC (3.98-10.04) K/mm3 RBC (3.98-5.22) M/mm3 Hgb (11.2-15.7) gm/L Hct (34.1-44.9) % MCV (79.4-94.8) fl MCH (25.6-32.2) pg MCHC (32.2-35.5) g/dl RDW Std Deviation (36.4-46.3) fL Plt Count (182-369) K/mm3 MPV (9.4-12.3) fl Neut % (Auto) (34.0-71.1) % Lymph % (Auto) (19.3-51.7) % [place] % (Auto) (4.7-12.5) % Eos % (Auto) (0.7-5.8) Baso % (Auto) (0.1-1.2) % Neut # (Auto) (1.56-6.13) K/mm3 Lymph # (Auto) (1.18-3.74) K/mm3 [place] # (Auto) (0.24-0.36) K/mm3 Eos # (Auto) (0.04-0.36) K/mm3 Baso # (Auto) (0.01-0.08) K/mm3 PT (9.5-12.1) SECONDS INR APTT (24-31) SECONDS D-Dimer, Quantitative 0.35 (0.19-0.50) mg/L Sodium (136-145) mEq/L Potassium (3.5-5.1) mEq/L Chloride (98-107) mEq/L Carbon Dioxide (21-32) mEq/L Anion Gap (5-15) BUN (7-18) mg/dL Creatinine (0.55-1.02) mg/dL Est Cr Clr Drug Dosing mL/min Estimated GFR (MDRD) (>60) mL/min BUN/Creatinine Ratio (14-18) Glucose (74-106) mg/dL Calcium (8.5-10.1) mg/dL Magnesium 2.2 (1.8-2.4) mg/dl Total Bilirubin (0.2-1.0) mg/dL AST (15-37) U/L ALT (14-59) U/L Alkaline Phosphatase (46-116) U/L Troponin I (0.00-0.056) ng/mL Total Protein (6.4-8.2) g/dl Albumin (3.4-5.0) g/dl Globulin gm/dL Albumin/Globulin Ratio (1-2) Lipase (73-393) U/L Ethyl Alcohol (0.00) gm% Meds: Medications Discontinued Medications Generic Name Dose Route Start Last Admin Trade Name Zo PRN Reason Stop Dose Admin Sodium Chloride 10 ml 10/21/18 17:34 Saline Flush FLUSH ASDIRECTED PRN Keep Vein Open - Radiology Interpretation Free Text/Narrative:: Chest x-ray shows no acute intrathoracic process. - Re-Assessments/Exams Free Text/Narrative Re-Assessment/Exam: 10/21/18 19:20 I do still feel this patient is very low risk for DTs. I will adjust her Ativan as she feels that the symptoms have worsened since she was decreased from 0.5 3 times a day to 0.5 twice a day. I will increase her Ativan for a short time but continue to taper her off of this. I feel she is safe to go back to the crisis bed. I do recommend she follow-up with her primary care provider. She may consider getting a stress test done. Discharge instructions as documented. Departure - Departure Time of Disposition: 19:20 Disposition: Home, Self-Care 01 Reason for Transfer *Q: Other Condition: Good Clinical Impression: Alcohol withdrawal Qualifiers: Complication of substance-induced condition: uncomplicated Qualified Code(s): F10.230 - Alcohol dependence with withdrawal, uncomplicated Prescriptions: LORazepam [Ativan] 1 mg PO DAILY #18 tablet Ondansetron [Zofran ODT] 4 mg PO Q6H PRN #15 tab.dis PRN Reason: Nausea Referrals: Red Sin PA-C [Primary Care Provider] - Forms: ED Department Discharge Additional Instructions: Revised Ativan dosage as written. 1 mg every 8 hours for 3 days and 1 mg every 12 hours. 1 mg daily for 3 days. Zofran as prescribed. 1 tab sublingual every 6 hours as needed for nausea. Follow-up with your primary care provider within 2 weeks for recheck of your symptoms. Consider discussing a stress test. Please return to the ER symptoms change or worsen.
--- NOTE | 2018-10-22 07:19 | CR ---
Chest: Portable view of the chest was obtained. Comparison: Prior chest x-ray of 10/16/18. Heart size is within normal limits. Mediastinum also within normal limits. Lungs are clear with no acute parenchymal change. Bony structures are grossly intact. Impression: 1. Nothing acute is seen on portable chest x-ray. Diagnostic code #1
== END 2018-10-21 19:30 | disposition home or self-care (01) ==
LOC: JD.ED 17:19
DX: F10.230 Alcohol dependence with withdrawal, uncomplicated (principal); I10 Essential (primary) hypertension; F41.9 Anxiety disorder, unspecified; F32.9 Major depressive disorder, single episode, unspecified; M19.90 Unspecified osteoarthritis, unspecified site; F17.210 Nicotine dependence, cigarettes, uncomplicated; Z79.899 Other long term (current) drug therapy; Z91.013 Allergy to seafood; Z88.8 Allergy status to other drugs, medicaments and biological substances
CPT/HCPCS: 36415; 71045; 80053; 83690; 83735; 84484; 85025; 85379; 85610; 85730; 93005; 99285; G0480

== ENCOUNTER 2019-11-04 13:03 | Emergency (ER) | payer MEDICAID ==
[2019-11-04] MEDS ORDERED: Ondansetron 4 MG/2 ML SDV IVPUSH ONE (13:34)
[2019-11-04] MEDS ORDERED: Sodium Chloride 0.9% 10 ML Syringe FLUSH PRN ×2 (13:34→14:47)
[2019-11-04] MEDS ORDERED: Sodium Chloride 0.9% 1,000 ML IV STA (13:34)
[2019-11-04] MEDS ORDERED: LORazepam 2 MG/ML SDV IVPUSH ONE (13:36)
[2019-11-04] MEDS ORDERED: Diatrizoate Meglumine/Diatrizoate Sodium 37% 120 ML Bottle PO ONE (14:47)
[2019-11-04] MEDS ORDERED: Iopamidol 612 MG/ML 100 ML Bottle IVPUSH ONE (14:47)
[2019-11-04] MEDS ORDERED: Iopamidol 612 MG/ML 50 ML SDV IVPUSH ONE (14:48)
[2019-11-04] MEDS ORDERED: Pantoprazole 40 MG Vial IVPUSH ONE (15:31)
--- NOTE | 2019-11-04 15:43 | CT ---
CT abdomen and pelvis Technique: Multiple axial sections were obtained from above the dome of the diaphragm inferiorly through the pubic symphysis. Intravenous and oral contrast was utilized. Delayed images were obtained through the bladder. Comparison: No prior intra-abdominal imaging is available. Findings: Visualized lung bases show nothing acute. Liver shows severe fatty infiltration. Gallbladder is distended. No calcified gallstones are seen. Spleen appears normal. Adrenal glands show no nodule. Pancreas is within normal limits. Kidneys show symmetric contrast enhancement without hydronephrosis or mass. Aorta shows no aneurysm. No retroperitoneal adenopathy or mesenteric abnormalities are seen. Appendix is seen and is normal. No pelvic mass or adenopathy is seen. No free fluid or inflammatory change is appreciated. Delayed images shows contrast within the distal ureters and bladder. Impression: 1. Severe fatty infiltration within the liver. 2. Dilated gallbladder without calcified gallstones. 3. No additional abnormality is appreciated on CT study of the abdomen and pelvis. Diagnostic code #2 This report was dictated in MDT
--- NOTE | 2019-11-04 16:03 | EDM.PDOC ---
ED HPI GENERAL MEDICAL PROBLEM - General Chief Complaint: Gastrointestinal Problem Stated Complaint: BLOOD IN VOMITING AND DIARRHEA Time Seen by Provider: 11/04/19 13:20 Source of Information: Reports: Patient History Limitations: Reports: No Limitations - History of Present Illness INITIAL COMMENTS - FREE TEXT/NARRATIVE: The patient presents with abdominal pain, nausea, vomiting and diarrhea. She says she just stopped drinking this morning at 4am. She had been drinking heavily for about 8 days. She was off alcohol for a few months. She had blood when she vomits and blood in her diarrhea. She has a slight shake. She has no fever, chills, cough, chest pain, shortness of breath or dysuria. She had a history of elevated liver enzymes in the past. Onset: Gradual Duration: Hour(s): Location: Reports: Abdomen Quality: Reports: Sharp Severity: Moderate Improves with: Reports: None Worsens with: Reports: None Associated Symptoms: Reports: Nausea/Vomiting. Denies: Chest Pain, Cough, Fever/Chills, Headaches, Shortness of Breath Left Abdomen Pain Score (Numeric/FACES): 7 - Related Data Allergies Allergy/AdvReac Type Severity Reaction Status Date / Time shellfish derived Allergy Hives Verified 11/04/19 13:17 tuberculin,PPD,multi-puncture Allergy Difficulty Verified 11/04/19 13:17 Breathing Home Meds: Home Meds buPROPion [Wellbutrin SR] 300 mg PO DAILY 10/16/18 [History] Omeprazole 20 mg PO DAILY 10/21/18 [History] cloNIDine [Catapres] 0.1 mg PO BEDTIME 10/21/18 [History] LORazepam [Ativan] 1 mg PO DAILY #18 tablet 11/04/19 [Rx] Omeprazole Magnesium [Prilosec Otc] 20 mg PO DAILY #15 tablet.dr 11/04/19 [Rx] Ondansetron [Zofran ODT] 4 mg PO Q6H PRN #20 tab.dis 11/04/19 [Rx] Past Medical History - Past Health History Medical/Surgical History: Denies Medical/Surgical History HEENT History: Reports: Impaired Vision Cardiovascular History: Reports: Hypertension Other Cardiovascular History: HTN only for 1 year- resolved Respiratory History: Reports: COPD Gastrointestinal History: Reports: GERD Other Gastrointestinal History: Acid reflux- resolved 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, 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: Polycystic 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 Musculoskeletal History: Reports: Arthritis Neurological History: Reports: Seizure Other Neuro History: 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 Psychiatric History: Reports: Addiction, Anxiety, Depression Other Psychiatric History: Anxiety/depression - Infectious Disease History Other Infectious Disease History: Pt refused to answer - Past Surgical History Musculoskeletal Surgical History: Reports: None Social & Family History - Family History Family Medical History: Noncontributory - Tobacco Use Smoking Status *Q: Current Every Day Smoker Years of Tobacco use: 40 Packs/Tins Daily: 0.2 - Caffeine Use Caffeine Use: Reports: Soda Caffeine Use Comment: pt refused to answer - Recreational Drug Use Recreational Drug Use: No - Living Situation & Occupation Living situation: Reports: , with Significant Other, Other (with 2 friends) Occupation: Unemployed ED ROS GENERAL - Review of Systems Review Of Systems: See Below Constitutional: Reports: No Symptoms HEENT: Reports: No Symptoms Respiratory: Reports: No Symptoms Cardiovascular: Reports: No Symptoms Endocrine: Reports: No Symptoms GI/Abdominal: Reports: Abdominal Pain, Bloody Stool, Nausea, Vomiting : Reports: No Symptoms Musculoskeletal: Reports: No Symptoms Skin: Reports: No Symptoms Neurological: Reports: No Symptoms ED EXAM, GI/ABD - Physical Exam Exam: See Below Exam Limited By: No Limitations General Appearance: Alert, No Apparent Distress Ears: Normal External Exam Nose: Normal Inspection Head: Atraumatic, Normocephalic Neck: Normal Inspection Respiratory/Chest: No Respiratory Distress, Lungs Clear, Normal Breath Sounds Cardiovascular: Regular Rate, Rhythm, No Edema, No Murmur GI/Abdominal Exam: Soft, No Organomegaly, No Mass, Tender (Mild generalized pain) Back Exam: Normal Inspection Extremities: Normal Inspection Course - Vital Signs Last Recorded V/S: Last Vital Signs Temp 96.8 F L 11/04/19 13:10 Pulse 109 H 11/04/19 13:10 Resp 20 11/04/19 13:10 BP 146/121 H 11/04/19 13:10 Pulse Ox 96 11/04/19 13:10 - Orders/Labs/Meds Orders: Active Orders 24 hr Category Date Time Status Peripheral IV Care [RC] . DIRECTED Care 11/04/19 13:34 Active Sodium Chloride 0.9% [Saline Flush] Med 11/04/19 13:34 Active 10 ml FLUSH ASDIRECTED PRN Sodium Chloride 0.9% [Saline Flush] Med 11/04/19 14:47 Active 10 ml FLUSH ONETIME PRN ED Antiemetic Medication Reflex [OM.PC] Stat Oth 11/04/19 13:34 Ordered Peripheral IV Insertion Adult [OM.PC] Stat Oth 11/04/19 13:34 Ordered Medication Orders Sodium Chloride (Saline Flush) 10 ml FLUSH ASDIRECTED PRN PRN Reason: Keep Vein Open Last Admin: 11/04/19 14:07 Dose: 10 ml Documented by: AVELINO Sodium Chloride (Saline Flush) 10 ml FLUSH ONETIME PRN PRN Reason: Keep Vein Open Last Admin: 11/04/19 15:20 Dose: 10 ml Documented by: CALLIE Labs: Laboratory Tests 11/04/19 11/04/19 11/04/19 Range/Units 13:55 13:55 13:55 WBC 2.87 L (3.98-10.04) K/mm3 RBC 5.26 H (3.98-5.22) M/mm3 Hgb 15.7 D (11.2-15.7) gm/dl Hct 46.2 H (34.1-44.9) % MCV 87.8 D (79.4-94.8) fl MCH 29.8 (25.6-32.2) pg MCHC 34.0 (32.2-35.5) g/dl RDW Std Deviation 41.2 (36.4-46.3) fL Plt Count 119 L D (182-369) K/mm3 MPV 10.6 (9.4-12.3) fl Neut % (Auto) 64.6 (34.0-71.1) % Lymph % (Auto) 22.6 (19.3-51.7) % [place] % (Auto) 12.2 (4.7-12.5) % Eos % (Auto) 0.3 L (0.7-5.8) Baso % (Auto) 0.3 (0.1-1.2) % Neut # (Auto) 1.85 (1.56-6.13) K/mm3 Lymph # (Auto) 0.65 L (1.18-3.74) K/mm3 [place] # (Auto) 0.35 (0.24-0.36) K/mm3 Eos # (Auto) 0.01 L (0.04-0.36) K/mm3 Baso # (Auto) 0.01 (0.01-0.08) K/mm3 Manual Slide Review Abnormal smear PT 10.4 (9.7-12.0) SECONDS INR 0.95 APTT 27 (22-31) SECONDS Sodium 139 (136-145) mEq/L Potassium 3.2 L (3.5-5.1) mEq/L Chloride 100 (98-107) mEq/L Carbon Dioxide 24 (21-32) mEq/L Anion Gap 18.2 H (5-15) BUN 12 (7-18) mg/dL Creatinine 1.1 H (0.55-1.02) mg/dL Est Cr Clr Drug Dosing 53.22 mL/min Estimated GFR (MDRD) 52 (>60) mL/min BUN/Creatinine Ratio 10.9 L (14-18) Glucose 157 H (74-106) mg/dL Calcium 9.2 (8.5-10.1) mg/dL Total Bilirubin 1.0 (0.2-1.0) mg/dL AST 212 H (15-37) U/L ALT 253 H (14-59) U/L Alkaline Phosphatase 117 H (46-116) U/L Total Protein 7.7 (6.4-8.2) g/dl Albumin 4.1 (3.4-5.0) g/dl Globulin 3.6 gm/dL Albumin/Globulin Ratio 1.1 (1-2) Lipase 223 (73-393) U/L Ethyl Alcohol 0.00 (0.00) gm% Meds: Medications Generic Name Dose Route Start Last Admin Trade Name Freq PRN Reason Stop Dose Admin Sodium Chloride 10 ml 11/04/19 13:34 11/04/19 14:07 Saline Flush FLUSH 10 ml ASDIRECTED PRN Administration Keep Vein Open Sodium Chloride 10 ml 11/04/19 14:47 11/04/19 15:20 Saline Flush FLUSH 10 ml ONETIME PRN Administration Keep Vein Open Discontinued Medications Generic Name Dose Route Start Last Admin Trade Name Freq PRN Reason Stop Dose Admin Diatrizoate Meglum/Diatrizoate Sod 40 ml 11/04/19 14:47 11/04/19 15:20 Gastrografin 37% PO 11/04/19 14:48 90 ml ONETIME ONE Administration Sodium Chloride 1,000 mls @ 1,000 mls/hr 11/04/19 13:34 11/04/19 14:10 Normal Saline IV 11/04/19 14:33 1,000 mls/hr .BOLUS STA Administration Iopamidol 100 ml 11/04/19 14:47 11/04/19 15:20 Isovue-300 (61%) IVPUSH 11/04/19 14:48 100 ml ONETIME ONE Administration Iopamidol 25 ml 11/04/19 14:48 11/04/19 15:16 Isovue-300 (61%) IVPUSH 11/04/19 14:49 Not Given ONETIME ONE Lorazepam 1 mg 11/04/19 13:36 11/04/19 14:07 Ativan IVPUSH 11/04/19 13:37 1 mg ONETIME ONE Administration Ondansetron HCl 4 mg 11/04/19 13:34 11/04/19 14:05 Zofran IVPUSH 11/04/19 13:35 4 mg ONETIME ONE Administration Pantoprazole Sodium 80 mg 11/04/19 15:31 11/04/19 15:35 Protonix Iv IVPUSH 11/04/19 15:32 80 mg BOLUS ONE Administration - Re-Assessments/Exams Free Text/Narrative Re-Assessment/Exam: 11/04/19 15:59 I ordered an IV NS 1L bolus, zofran 4mg IV, protonix 80mg IV, ativan 1mg IV, labs and a CT of her abdomen and pelvis. Her WBC was low at 2.87. Her Hgb was normal at 15.7. Her PT and PTT look good. Her K was a little low at 3.2. Her AST was elevated at 212. Her ALT was elevated at 253. Her alk phos was elevated at 117. Her lipase was normal and her ETOH was 0. 11/04/19 16:[address] of her abdomen and pelvis shows severe fatty infiltration within the liver. Dilated gallbladder without calcified gallstones. No additional abnormality is appreciated on CT study of the abdomen and pelvis. 11/04/19 16:09 She feels better. I will discharge her home. Departure - Departure Time of Disposition: 16:15 Disposition: Home, Self-Care 01 Condition: Good Clinical Impression: Elevated liver enzymes, Fatty liver Gastritis Qualifiers: Gastritis type: alcoholic Chronicity: chronic Gastritis bleeding: with bleeding Qualified Code(s): K29.21 - Alcoholic gastritis with bleeding Alcohol withdrawal Qualifiers: Complication of substance-induced condition: uncomplicated Qualified Code(s): F10.230 - Alcohol dependence with withdrawal, uncomplicated - Discharge Information *PRESCRIPTION DRUG MONITORING PROGRAM REVIEWED*: No *COPY OF PRESCRIPTION DRUG MONITORING REPORT IN PATIENT SULAIMAN: No Prescriptions: LORazepam [Ativan] 1 mg PO DAILY #18 tablet Omeprazole Magnesium [Prilosec Otc] 20 mg PO DAILY #15 tablet. Ondansetron [Zofran ODT] 4 mg PO Q6H PRN #20 tab.dis PRN Reason: Nausea\vomiting Referrals: Buffy Wahl MD [Primary Care Provider] - 1 Week Forms: ED Department Discharge Additional Instructions: Drink plenty of fluids. Take the prilosec daily for 15 days. Take zofran every 6 hours as needed for nausea and vomiting. Take the ativan as prescribed. Please return if you are worse. Sepsis Event Note (ED) - Evaluation Sepsis Screening Result: No Definite Risk - Focused Exam Vital Signs: Vital Signs Temp Pulse Resp BP Pulse Ox 11/04/19 13:10 96.8 F L 109 H 20 146/121 H 96 - My Orders Last 24 Hours: My Active Orders 11/04/19 13:34 Peripheral IV Care [RC] . DIRECTED Sodium Chloride 0.9% [Saline Flush] 10 ml FLUSH ASDIRECTED PRN ED Antiemetic Medication Reflex [OM.PC] Stat Peripheral IV Insertion Adult [OM.PC] Stat 11/04/19 14:47 Sodium Chloride 0.9% [Saline Flush] 10 ml FLUSH ONETIME PRN - Assessment/Plan Last 24 Hours: My Active Orders 11/04/19 13:34 Peripheral IV Care [RC] . DIRECTED Sodium Chloride 0.9% [Saline Flush] 10 ml FLUSH ASDIRECTED PRN ED Antiemetic Medication Reflex [OM.PC] Stat Peripheral IV Insertion Adult [OM.PC] Stat 11/04/19 14:47 Sodium Chloride 0.9% [Saline Flush] 10 ml FLUSH ONETIME PRN
== END 2019-11-04 16:37 | disposition home or self-care (01) ==
LOC: JD.ED 13:03
DX: F10.230 Alcohol dependence with withdrawal, uncomplicated (principal); K29.21 Alcoholic gastritis with bleeding; R74.8 Abnormal levels of other serum enzymes; K76.0 Fatty (change of) liver, not elsewhere classified; F41.9 Anxiety disorder, unspecified; F32.9 Major depressive disorder, single episode, unspecified; K21.9 Gastro-esophageal reflux disease without esophagitis; F17.210 Nicotine dependence, cigarettes, uncomplicated; Z79.899 Other long term (current) drug therapy; Z91.013 Allergy to seafood; Z88.7 Allergy status to serum and vaccine
CPT/HCPCS: 36415; 74177; 80053; 80307; 83690; 85025; 85610; 85730; 96361; 96374; 96375; 99284; C9113; J2060; J2405; J7030; Q9963; Q9967

== ENCOUNTER 2020-04-10 12:58 | Emergency (ER) | payer MEDICAID | END 2020-04-10 13:52 | disposition left against medical advice (07) | LOC: JD.ED 12:58 | DX: Z53.21 Procedure and treatment not carried out due to patient leaving prior to being seen by health care provider (principal) ==

== ENCOUNTER 2020-04-28 12:34 | Emergency (ER) | payer MEDICAID ==
[2020-04-28] MEDS ORDERED: Sodium Chloride 0.9% 1,000 ML IV ONE ×2 (13:08→14:51)
--- NOTE | 2020-04-28 14:14 | EDM.PDOC ---
<Savannah Tejeda M - Last Filed: 04/28/20 14:59> ED HPI GENERAL MEDICAL PROBLEM - General Chief Complaint: Drug or Alcohol Abuse Stated Complaint: [facility] Time Seen by Provider: 04/28/20 13:00 Source of Information: Reports: Patient, EMS History Limitations: Reports: Intoxication - History of Present Illness INITIAL COMMENTS - FREE TEXT/NARRATIVE: 55-year-old female presents to the emergency department by way of EMS with complaints of alcohol intoxication and wanting treatment for alcohol. EMS reports that when they arrived at the patient's residence patient was heavily intoxicated and combative but stated she wanted treatment. She states that she had been drinking and felt like she was going to have a seizure so she started drinking alcohol to prevent that. Patient states that about a year ago she was drinking a gallon of hard alcohol daily and she has cut back to 1/5 a day. She has been drinking 1/5 a day consistently for the past month. She was unable to tell me how long she had been without a drink on current episode prior to thinking she was going to have a seizure. She also reports she does have a history of seizures with alcohol withdrawal. She has received 2 mg of Ativan prior to arrival by EMS. Patient states that she has been through alcohol treatment in the past most recently was with [facility] 1 summer ago. She states that they kicked her out and put her on a bus and told her to go to [place]. She is not wanting to return to [facility] or the [facility]. Patient is heavily intoxicated on arrival to the emergency department. Onset: Today - Related Data Allergies Allergy/AdvReac Type Severity Reaction Status Date / Time shellfish derived Allergy Hives Verified 04/10/20 13:12 tuberculin,PPD,multi-puncture Allergy Difficulty Verified 04/10/20 13:12 Breathing Home Meds: Home Meds buPROPion [Wellbutrin SR] 300 mg PO DAILY 10/16/18 [History] cloNIDine [Catapres] 0.1 mg PO BEDTIME 10/21/18 [History] Omeprazole Magnesium [Prilosec Otc] 20 mg PO DAILY #15 tablet. 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: Reports: Polycystic Ovaries Musculoskeletal History: Reports: Arthritis Neurological History: Reports: Seizure Other Neuro History: 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 Psychiatric History: Reports: Addiction, Anxiety, Depression Other Psychiatric History: Anxiety/depression - Infectious Disease History Other Infectious Disease History: Pt refused to answer - Past Surgical History Other HEENT Surgeries/Procedures: Pt refused to answer past medical history questions Musculoskeletal Surgical History: Reports: None Social & Family History - Family History Family Medical History: No Pertinent Family History - Tobacco Use Tobacco Use Status *Q: Current Every Day Tobacco User Years of Tobacco use: 30 Packs/Tins Daily: 0.5 - Caffeine Use Caffeine Use: Reports: Soda Caffeine Use Comment: pt refused to answer - Alcohol Use Days Per Week of Alcohol Use: 7 Number of Drinks Per Day: 10 Total Drinks Per Week: 70 Date of Last Drink: 04/28/20 Time of Last Drink: 11:30 - Recreational Drug Use Recreational Drug Use: No - Living Situation & Occupation Living situation: Reports: , with Significant Other, Other (with 2 friends) Occupation: Unemployed ED ROS GENERAL - Review of Systems Review Of Systems: See Below Constitutional: Reports: No Symptoms HEENT: Reports: No Symptoms Respiratory: Reports: No Symptoms, Cough. Denies: Sputum Cardiovascular: Reports: No Symptoms Endocrine: Reports: No Symptoms GI/Abdominal: Reports: No Symptoms : Reports: No Symptoms Musculoskeletal: Reports: No Symptoms Skin: Reports: No Symptoms Neurological: Reports: Difficulty Walking, Other (Slurred speech: Patient is heavily intoxicated) Psychiatric: Reports: Other (Alcohol intoxication) Hematologic/Lymphatic: Reports: No Symptoms Immunologic: Reports: No Symptoms ED EXAM, GENERAL - Physical Exam Exam: See Below Exam Limited By: Intoxication General Appearance: WD/WN, No Apparent Distress, Obese, Other (ED vitals temp 96.5, pulse 92, respiratory rate 15, blood pressure 135/102, pulse ox 90% on room air.) Eye Exam: Bilateral Eye: PERRL Ears: Hearing Grossly Normal Nose: Normal Inspection Throat/Mouth: Normal Lips, Normal Voice, No Airway Compromise Head: Atraumatic, Normocephalic Neck: Normal Inspection, Supple, Non-Tender, Full Range of Motion Respiratory/Chest: No Respiratory Distress, No Accessory Muscle Use, Chest Non- Tender, Rales Cardiovascular: Normal Peripheral Pulses, Regular Rate, Rhythm, No Edema, No Murmur Peripheral Pulses: 2+: Radial (L), Radial (R), Dorsalis Pedis (L), Dorsalis Pedis (R) GI/Abdominal: Normal Bowel Sounds, Soft, Non-Tender, No Distention (Female) Exam: Deferred Rectal (Female) Exam: Deferred Back Exam: Normal Inspection, Full Range of Motion Extremities: Normal Inspection, Normal Range of Motion, Non-Tender, No Pedal Edema, Normal Capillary Refill Neurological: Oriented, Other (Speech is slurred due to intoxication, gait is unsteady due to intoxication) Psychiatric: Normal Affect, Normal Mood Skin Exam: Warm, Dry, Normal Color, No Rash, Wound/Incision (Large healing scabbed area noted to left thumb) Lymphatic: No Adenopathy Course - Re-Assessments/Exams Free Text/Narrative Re-Assessment/Exam: 04/28/20 14:13 I have ordered a CBC, CMP, urine drug screen, and blood alcohol level, and patient to receive normal saline 1 L bolus. 04/28/20 14:14 CBC unremarkable, chemistry reveals a potassium of 3.4, glucose 110, AST 107, ALT 124, alk phos 133, urine drug screen is negative, blood alcohol 0.44. 04/28/20 14:59 I have ordered a second liter of normal saline to run wide open on this patient. Departure - Departure Disposition: Home, Self-Care 01 Clinical Impression: Alcohol abuse Acute alcohol intoxication Qualifiers: Complication of substance-induced condition: uncomplicated Qualified Code(s): F10.920 - Alcohol use, unspecified with intoxication, uncomplicated - Discharge Information Instructions: Alcohol Intoxication, [id number], Alcohol Abuse and Nutrition Referrals: PCP,None [Primary Care Provider] - Forms: ED Department Discharge Additional Instructions: You were evaluated in the ER today for your alcohol abuse. You were given some IV fluids in the ER, to help sober you up. Unfortunately you are going to have to do some of the hard work on your own and if you do actually want help to stop drinking; I recommend you stop drinking in entirety, and report back to this ER or other outpatient alcohol management places like [facility] for help to stop drinking. The [facility] telephone number is [phone] their emergency crisis line is [phone]. There is also the [facility] in [place], [place] that does outpatient alcohol treatment, Their telephone is [phone]. You will need to call early tomorrow morning to try to get into their program and ask for Rupal or Zoe and tell them that you were in the ER tonight and are seeking alcohol treatment. We are limited in what we can provide for alcohol treatment, as stated above you will have to go home and not drink tonight and try to find help for your alcoholism. You will need to call these places on your own behalf to find help. Sepsis Event Note (ED) - Evaluation Sepsis Screening Result: No Definite Risk <Crystal Cook V - Last Filed: 04/28/20 21:37> Course - Vital Signs Last Recorded V/S: Last Vital Signs Temp 96.7 F L 04/28/20 14:32 Pulse 88 04/28/20 14:32 Resp 14 04/28/20 14:32 BP 131/97 H 04/28/20 14:32 Pulse Ox 93 L 04/28/20 14:32 - Orders/Labs/Meds Labs: Laboratory Tests 04/28/20 04/28/20 04/28/20 Range/Units 12:55 12:55 13:15 WBC 4.32 (3.98-10.04) K/mm3 RBC 4.85 (3.98-5.22) M/mm3 Hgb 14.9 (11.2-15.7) gm/dl Hct 45.6 H (34.1-44.9) % MCV 94.0 (79.4-94.8) fl MCH 30.7 (25.6-32.2) pg MCHC 32.7 (32.2-35.5) g/dl RDW Std Deviation 47.2 H (36.4-46.3) fL Plt Count 120 L D (182-369) K/mm3 MPV 10.2 (9.4-12.3) fl Neut % (Auto) 46.1 (34.0-71.1) % Lymph % (Auto) 40.3 (19.3-51.7) % Worth % (Auto) 11.3 (4.7-12.5) % Eos % (Auto) 1.4 (0.7-5.8) Baso % (Auto) 0.7 (0.1-1.2) % Neut # (Auto) 1.99 (1.56-6.13) K/mm3 Lymph # (Auto) 1.74 (1.18-3.74) K/mm3 Worth # (Auto) 0.49 H (0.24-0.36) K/mm3 Eos # (Auto) 0.06 (0.04-0.36) K/mm3 Baso # (Auto) 0.03 (0.01-0.08) K/mm3 Manual Slide Review Not Reportable Sodium 145 (136-145) mEq/L Potassium 3.4 L (3.5-5.1) mEq/L Chloride 106 (98-107) mEq/L Carbon Dioxide 30 D (21-32) mEq/L Anion Gap 12.4 (5-15) BUN 13 (7-18) mg/dL Creatinine 0.8 (0.55-1.02) mg/dL Est Cr Clr Drug Dosing 75.26 mL/min Estimated GFR (MDRD) > 60 (>60) mL/min BUN/Creatinine Ratio 16.3 (14-18) Glucose 110 H (74-106) mg/dL Calcium 8.8 (8.5-10.1) mg/dL Total Bilirubin 0.2 (0.2-1.0) mg/dL AST 107 H (15-37) U/L ALT 124 H (14-59) U/L Alkaline Phosphatase 133 H (46-116) U/L Total Protein 7.8 (6.4-8.2) g/dl Albumin 3.8 (3.4-5.0) g/dl Globulin 4.0 gm/dL Albumin/Globulin Ratio 1.0 (1-2) Urine Opiates Screen Negative (AGMIBP=421) Ur Buprenorphine Scrn Negative (CUTOFF=10) Ur Oxycodone Screen Negative (FGS1NH=116) Urine Methadone Screen Negative (MQYUUJ=544) Ur Propoxyphene Screen Negative (BNPFWY=540) Ur Barbiturates Screen Negative (YDPFJK=957) Ur Tricyclics Screen Negative (NXCNYC=161) Ur Phencyclidine Scrn Negative (CUTOFF=25) Ur Amphetamine Screen Negative (KZEQDV=643) U Methamphetamines Scrn Negative (YIOYOD=179) U Benzodiazepines Scrn Negative (RLTEED=923) U Cocaine Metab Screen Negative (QOXZFQ=815) U Marijuana (THC) Screen Negative (CUTOFF=50) Ethyl Alcohol 0.44 (0.00) gm% Meds: Medications Discontinued Medications Generic Name Dose Route Start Last Admin Trade Name Freq PRN Reason Stop Dose Admin Sodium Chloride 1,000 mls @ 999 mls/hr 04/28/20 13:08 04/28/20 13:21 Normal Saline IV 04/28/20 14:08 999 mls/hr ONETIME ONE Administration Sodium Chloride 1,000 mls @ 999 mls/hr 04/28/20 14:51 04/28/20 14:59 Normal Saline IV 04/28/20 15:51 999 mls/hr ONETIME ONE Administration Dextrose/Lactated Ringer's 1,000 mls @ 150 mls/hr 04/28/20 16:15 04/28/20 16:19 Dextrose 5%-Lactated Ringers IV 150 mls/hr ASDIRECTED FAVIAN Administration - Re-Assessments/Exams Free Text/Narrative Re-Assessment/Exam: 04/28/20 16:35 I did receive verbal report from Savannah Mccullough for this patient. I am understanding that she verbalized wanting to seek treatment for stopping alcohol unfortunately she is inebriated when she shows up to this ER. She will have to get herself sober enough to verbalize wanting alcohol treatment again before I will try to find her placement. She apparently does not want to go to [facility], we could try the [facility] in [facility] as well. Main concern is just to give her enough fluids, to get her sober and see what her wishes are at that time. It was made aware to me, that the patient had vodka in a water bottle and was drinking in the ambulance on the way to the ER. Departure - Departure Time of Disposition: 16:30 Condition: Good - Discharge Information *PRESCRIPTION DRUG MONITORING PROGRAM REVIEWED*: No *COPY OF PRESCRIPTION DRUG MONITORING REPORT IN PATIENT SULAIMAN: No Sepsis Event Note (ED) - Focused Exam Vital Signs: Vital Signs Temp Pulse Resp BP Pulse Ox 04/28/20 14:32 96.7 F L 88 14 131/97 H 93 L 04/28/20 12:38 96.5 F L 92 15 135/102 H 90 L
[2020-04-28] MEDS ORDERED: Dextrose 5%-Lactated Ringers 1,000 ML IV SCH (16:15)
== END 2020-04-28 18:26 | disposition home or self-care (01) ==
LOC: JD.ED 12:34
DX: F10.120 Alcohol abuse with intoxication, uncomplicated (principal); J44.9 Chronic obstructive pulmonary disease, unspecified; K21.9 Gastro-esophageal reflux disease without esophagitis; I10 Essential (primary) hypertension; F41.9 Anxiety disorder, unspecified; F32.9 Major depressive disorder, single episode, unspecified; F17.210 Nicotine dependence, cigarettes, uncomplicated; Y90.0 Blood alcohol level of less than 20 mg/100 ml; Z91.013 Allergy to seafood; Z88.7 Allergy status to serum and vaccine; Z79.899 Other long term (current) drug therapy
CPT/HCPCS: 36415; 80053; 80306; 80307; 85025; 99284; J7030; J7121

== ENCOUNTER 2020-05-08 15:58 | Inpatient (IN) | payer MEDICAID ==
--- NOTE | 2020-05-08 17:04 | EDM.PDOC ---
ED HPI GENERAL MEDICAL PROBLEM - General Chief Complaint: Drug or Alcohol Abuse Stated Complaint: [facility] Time Seen by Provider: 05/08/20 16:56 - History of Present Illness INITIAL COMMENTS - FREE TEXT/NARRATIVE: 55-year-old female brought in by [facility] with problems with coming off alcohol. Patient was seen here on 28 April with alcohol detox she was drinking in the ambulance and try to drink here in the emergency room. She was discharged with advice to get help. The patient's been calling around during the holidays is had difficulty getting accepted to any detox center. The patient is noted increased abdominal swelling over the last several days whether it is for 5 days I am not sure and she is not sure either. She states her last drink was this morning she had 2 shots. Has had problems with seizures while trying to quit drinking in the past. And she states her liver enzymes have been pretty high in the past. At this time the patient states she wants help and wants to quit drinking because she knows it is detrimental to her health. - Related Data Allergies Allergy/AdvReac Type Severity Reaction Status Date / Time shellfish derived Allergy Hives Verified 05/08/20 16:12 tuberculin,PPD,multi-puncture Allergy Difficulty Verified 05/08/20 16:12 Breathing Home Meds: Home Meds buPROPion [Wellbutrin SR] 300 mg PO DAILY 10/16/18 [History] cloNIDine [Catapres] 0.1 mg PO BEDTIME 10/21/18 [History] Omeprazole Magnesium [Prilosec Otc] 20 mg PO DAILY #15 tablet.dr 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, 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 Musculoskeletal History: Reports: Arthritis Neurological History: Reports: Seizure Other Neuro History: 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 Psychiatric History: Reports: Addiction, Anxiety, Depression Other Psychiatric History: Anxiety/depression - Infectious Disease History Other Infectious Disease History: Pt refused to answer - Past Surgical History Other HEENT Surgeries/Procedures: Pt refused to answer past medical history questions Musculoskeletal Surgical History: Reports: None Social & Family History - Family History Family Medical History: No Pertinent Family History - Tobacco Use Tobacco Use Status *Q: Current Every Day Tobacco User Years of Tobacco use: 35 Packs/Tins Daily: 1 - Caffeine Use Caffeine Use: Reports: Soda Caffeine Use Comment: pt refused to answer - Recreational Drug Use Recreational Drug Use: No - Living Situation & Occupation Living situation: Reports: , with Significant Other, Other (with 2 friends) Occupation: Unemployed ED ROS GENERAL - Review of Systems Review Of Systems: See Below Constitutional: Reports: Weakness, Fatigue, Decreased Appetite HEENT: Reports: No Symptoms Respiratory: Reports: Cough. Denies: Shortness of Breath, Wheezing, Pleuritic Chest Pain Cardiovascular: Reports: No Symptoms Endocrine: Reports: No Symptoms GI/Abdominal: Reports: Abdominal Pain, Diarrhea, Decreased Appetite, Nausea, Vomiting, Other (Distention over the last week or so increased.) : Reports: No Symptoms Musculoskeletal: Reports: No Symptoms Skin: Reports: Bruising Neurological: Reports: No Symptoms Psychiatric: Reports: Anxiety Hematologic/Lymphatic: Reports: Easy Bruising Immunologic: Reports: No Symptoms ED EXAM, GENERAL - Physical Exam Exam: See Below Exam Limited By: No Limitations General Appearance: Alert, No Apparent Distress Eye Exam: Bilateral Eye: Normal Inspection Nose: Normal Inspection, Normal Mucosa, No Blood Throat/Mouth: Normal Inspection, Normal Lips, Normal Oropharynx, No Airway Compromise Head: Atraumatic, Normocephalic Neck: Normal Inspection, Supple. No: Lymphadenopathy (L), Lymphadenopathy (R) Respiratory/Chest: No Respiratory Distress, Lungs Clear, Normal Breath Sounds Cardiovascular: Regular Rate, Rhythm, No Edema, No Murmur GI/Abdominal: Normal Bowel Sounds, Soft, Other (With her body habitus is hard to exclude ascites diffuse tenderness. No rigidity rebound or guarding noted she does have some bruising noted of her abdominal skin) Back Exam: Normal Inspection. No: CVA Tenderness (L), CVA Tenderness (R) Extremities: Normal Inspection Neurological: Alert, Oriented, Normal Cognition Course - Vital Signs Last Recorded V/S: Last Vital Signs Temp 36.6 C 05/08/20 16:08 Pulse 93 05/08/20 16:08 Resp 16 05/08/20 16:08 BP 122/102 H 05/08/20 16:08 Pulse Ox 95 05/08/20 16:08 - Orders/Labs/Meds Orders: Active Orders 24 hr Category Date Time Status ABG [RT Arterial Blood Gases, ABG] [RC] Click to Edit Care 05/08/20 17:18 Active Chest 1V Frontal [CR] Stat Exams 05/08/20 17:26 Taken UA RFX NAIDA AND CULT IF INDIC [URIN] Stat Lab 05/08/20 17:09 Ordered Labs: Laboratory Tests 05/08/20 05/08/20 05/08/20 Range/Units 17:35 17:35 17:35 WBC 3.37 L (3.98-10.04) K/mm3 RBC 4.25 (3.98-5.22) M/mm3 Hgb 13.0 D (11.2-15.7) gm/dl Hct 40.1 (34.1-44.9) % MCV 94.4 (79.4-94.8) fl MCH 30.6 (25.6-32.2) pg MCHC 32.4 (32.2-35.5) g/dl RDW Std Deviation 46.2 (36.4-46.3) fL Plt Count 59 L (182-369) K/mm3 MPV 10.8 (9.4-12.3) fl Neut % (Auto) 56.6 (34.0-71.1) % Lymph % (Auto) 29.4 (19.3-51.7) % Calloway % (Auto) 13.1 H (4.7-12.5) % Eos % (Auto) 0.6 L (0.7-5.8) Baso % (Auto) 0.3 (0.1-1.2) % Neut # (Auto) 1.91 (1.56-6.13) K/mm3 Lymph # (Auto) 0.99 L (1.18-3.74) K/mm3 Calloway # (Auto) 0.44 H (0.24-0.36) K/mm3 Eos # (Auto) 0.02 L (0.04-0.36) K/mm3 Baso # (Auto) 0.01 (0.01-0.08) K/mm3 Manual Slide Review Abnormal smear PT 10.3 (9.7-12.0) SECONDS INR 0.96 Puncture Site ABG pH (7.35-7.45) ABG pCO2 (35.0-45.0) mmHg ABG pO2 (80.0-100.0) mmHg ABG HCO3 (22.0-26.0) meq/L ABG O2 Saturation (96.0-97.0) % ABG Base Excess (-2-2.0) Brown Test O2 Delivery Device FiO2 (21.00-100.00) % Sodium 139 (136-145) mEq/L Potassium 3.2 L (3.5-5.1) mEq/L Chloride 100 (98-107) mEq/L Carbon Dioxide 28 (21-32) mEq/L Anion Gap 14.2 (5-15) BUN 8 (7-18) mg/dL Creatinine 0.8 (0.55-1.02) mg/dL Est Cr Clr Drug Dosing TNP Estimated GFR (MDRD) > 60 (>60) mL/min BUN/Creatinine Ratio 10.0 L (14-18) Glucose 73 L (74-106) mg/dL Calcium 8.0 L (8.5-10.1) mg/dL Magnesium 2.4 (1.8-2.4) mg/dl Total Bilirubin 0.4 (0.2-1.0) mg/dL GGT 267 H (5-55) U/L AST 139 H (15-37) U/L ALT 143 H (14-59) U/L Alkaline Phosphatase 103 (46-116) U/L Total Protein 7.4 (6.4-8.2) g/dl Albumin 3.5 (3.4-5.0) g/dl Globulin 3.9 gm/dL Albumin/Globulin Ratio 0.9 L (1-2) Ethyl Alcohol 0.12 (0.00) gm% Ketones (0.0-0.3) mM SARS-CoV-2 RNA (CHAO) (NEGATIVE) 05/08/20 05/08/20 05/08/20 Range/Units 17:35 18:22 18:25 WBC (3.98-10.04) K/mm3 RBC (3.98-5.22) M/mm3 Hgb (11.2-15.7) gm/dl Hct (34.1-44.9) % MCV (79.4-94.8) fl MCH (25.6-32.2) pg MCHC (32.2-35.5) g/dl RDW Std Deviation (36.4-46.3) fL Plt Count (182-369) K/mm3 MPV (9.4-12.3) fl Neut % (Auto) (34.0-71.1) % Lymph % (Auto) (19.3-51.7) % Calloway % (Auto) (4.7-12.5) % Eos % (Auto) (0.7-5.8) Baso % (Auto) (0.1-1.2) % Neut # (Auto) (1.56-6.13) K/mm3 Lymph # (Auto) (1.18-3.74) K/mm3 Calloway # (Auto) (0.24-0.36) K/mm3 Eos # (Auto) (0.04-0.36) K/mm3 Baso # (Auto) (0.01-0.08) K/mm3 Manual Slide Review PT (9.7-12.0) SECONDS INR Puncture Site Rt radial ABG pH 7.41 (7.35-7.45) ABG pCO2 44.0 (35.0-45.0) mmHg ABG pO2 65.0 L (80.0-100.0) mmHg ABG HCO3 27.3 H (22.0-26.0) meq/L ABG O2 Saturation 87.6 L (96.0-97.0) % ABG Base Excess 2.7 H (-2-2.0) Brown Test Positive O2 Delivery Device Room air FiO2 0.00 L (21.00-100.00) % Sodium (136-145) mEq/L Potassium (3.5-5.1) mEq/L Chloride (98-107) mEq/L Carbon Dioxide (21-32) mEq/L Anion Gap (5-15) BUN (7-18) mg/dL Creatinine (0.55-1.02) mg/dL Est Cr Clr Drug Dosing Estimated GFR (MDRD) (>60) mL/min BUN/Creatinine Ratio (14-18) Glucose (74-106) mg/dL Calcium (8.5-10.1) mg/dL Magnesium (1.8-2.4) mg/dl Total Bilirubin (0.2-1.0) mg/dL GGT (5-55) U/L AST (15-37) U/L ALT (14-59) U/L Alkaline Phosphatase (46-116) U/L Total Protein (6.4-8.2) g/dl Albumin (3.4-5.0) g/dl Globulin gm/dL Albumin/Globulin Ratio (1-2) Ethyl Alcohol (0.00) gm% Ketones 0.02 (0.0-0.3) mM SARS-CoV-2 RNA (CHAO) Negative (NEGATIVE) Meds: Medications Discontinued Medications Generic Name Dose Route Start Last Admin Trade Name Freq PRN Reason Stop Dose Admin Folic Acid 1 mg 05/08/20 17:05 05/08/20 18:37 Folic Acid IV 05/08/20 17:06 Not Given ONETIME ONE Folic Acid 1 mg 05/08/20 18:36 05/08/20 18:41 Folic Acid PO 05/08/20 18:37 1 mg ONETIME ONE Administration Lactated Ringer's 1,000 mls @ 999 mls/hr 05/08/20 17:05 05/08/20 17:31 Ringers, Lactated IV 05/08/20 18:05 999 mls/hr .BOLUS ONE Administration Thiamine HCl 100 mg/ Sodium 101 mls @ 202 mls/hr 05/08/20 17:05 05/08/20 17:31 Chloride IV 05/08/20 17:06 202 mls/hr ONETIME ONE Administration Lorazepam 1 mg 05/08/20 17:07 05/08/20 17:31 Ativan IVPUSH 05/08/20 17:08 1 mg ONETIME ONE Administration Potassium Chloride 40 meq 05/08/20 19:03 Klor-Con M20 PO 05/08/20 19:04 ONETIME ONE - Re-Assessments/Exams Free Text/Narrative Re-Assessment/Exam: 05/08/20 19:16 There was some concern the patient was drinking some rubbing alcohol. I did discuss this with the patient she said she had less than a teaspoon. I advised her to never do this again. Her ketone was 0.02 we will recheck this in 3 hours to make sure it is not trending upward. Patient is receiving IV fluids and a milligram of Ativan her blood alcohol is .12 should be placed on a CIWA protocol and changed to inpatient status. Case discussed with Dr. Fuentes, our hospitalist who is kind enough to assume care. . Departure - Departure Time of Disposition: 19:18 Disposition: Admitted As Inpatient 67 Clinical Impression: Alcohol withdrawal syndrome Qualifiers: Complication of substance-induced condition: uncomplicated Qualified Code(s): F10.230 - Alcohol dependence with withdrawal, uncomplicated - Discharge Information Forms: ED Department Discharge Sepsis Event Note (ED) - Evaluation Sepsis Screening Result: No Definite Risk - Focused Exam Vital Signs: Vital Signs Temp Pulse Resp BP Pulse Ox 05/08/20 16:08 36.6 C 93 16 122/102 H 95 - My Orders Last 24 Hours: My Active Orders 05/08/20 17:09 UA RFX NAIDA AND CULT IF INDIC [URIN] Stat 05/08/20 17:18 ABG [RT Arterial Blood Gases, ABG] [RC] Click to Edit 05/08/20 17:26 Chest 1V Frontal [CR] Stat - Assessment/Plan Last 24 Hours: My Active Orders 05/08/20 17:09 UA RFX NAIDA AND CULT IF INDIC [URIN] Stat 05/08/20 17:18 ABG [RT Arterial Blood Gases, ABG] [RC] Click to Edit 05/08/20 17:26 Chest 1V Frontal [CR] Stat
[2020-05-08] MEDS ORDERED: Lactated Ringers 1,000 ML IV ONE (17:05)
[2020-05-08] MEDS ORDERED: Thiamine 100 MG in Sodium Chloride 0.9% 100 ML IV ONE (17:05)
[2020-05-08] MEDS ORDERED: Folic Acid 50 MG/10 ML MDV IV ONE (17:05)
[2020-05-08] MEDS ORDERED: LORazepam 2 MG/ML SDV IVPUSH ONE (17:07)
[2020-05-08] MEDS ORDERED: Folic Acid 1 MG Tab PO ONE (18:36)
[2020-05-08] MEDS ORDERED: Potassium Chloride 20 MEQ Tab.ER PO ONE (19:03)
[2020-05-08] MEDS ORDERED: Ondansetron 4 MG/2 ML SDV ONE (20:20)
[2020-05-08] MEDS ORDERED: LORazepam 2 MG/ML SDV IVPUSH PRN (20:31)
[2020-05-08] MEDS: Ondansetron 4 MG/2 ML SDV IVPUSH PRN (20:32)
[2020-05-08] MEDS: Lactated Ringers 1,000 ML IV SCH (20:43)
[2020-05-08] MEDS: LORazepam 2 MG/ML SDV IVPUSH PRN (20:57)
[2020-05-08] MEDS ORDERED: chlordiazePOXIDE 10 MG Cap PO SCH (21:00)
[2020-05-08] MEDS ORDERED: cloNIDine 0.1 MG Tab PO SCH (21:00)
[2020-05-08] MEDS ORDERED: chlordiazePOXIDE 10 MG Cap PO ONE (23:00)
[2020-05-09] MEDS: LORazepam 2 MG/ML SDV IVPUSH PRN ×5 (00:22→23:58)
[2020-05-09] MEDS: Ondansetron 4 MG/2 ML SDV IVPUSH PRN ×4 (01:59→22:18)
[2020-05-09] MEDS: Lactated Ringers 1,000 ML IV SCH ×3 (03:18→19:39)
[2020-05-09] MEDS: chlordiazePOXIDE 10 MG Cap PO SCH ×3 (08:49→20:17)
[2020-05-09] MEDS: Thiamine 100 MG Tab PO SCH (08:49)
[2020-05-09] MEDS: Folic Acid 1 MG Tab PO SCH (08:50)
[2020-05-09] MEDS: Nicotine 14 MG/24 Hr Patch TRDERM SCH (08:52)
--- NOTE | 2020-05-09 08:55 | PCM.HP.2 ---
H&P History of Present Illness - General Date of Service: 05/09/20 Admit Problem/Dx: Admission Diagnosis/Problem Admission Diagnosis/Problem Alcohol use disorder Source of Information: Patient History Limitations: Reports: No Limitations - History of Present Illness Initial Comments - Free Text/Narative: The patient is a 55-year-old lady who has a history of chronic alcohol addiction has presented to the emergency department with a complaint of withdrawal type symptoms. The patient reports that she does have seizures when not drinking. The patient reports that she has been drinking 1/5 of hard liquor per day. She also has reported that she has been to rehabilitation before. And she is currently having withdrawal symptoms and does want to get some help. 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 Patient also says that she knows that her liver enzymes have been elevated in the past. Her last alcohol consumption was reportedly in the morning of May 08, 2020. Onset of Symptoms: Reports: Gradual Duration of Symptoms: Reports: Week(s):, Getting Worse Location: Reports: Generalized Quality: Reports: Ache Severity: Moderate Improves with: Reports: None Worsens with: Reports: None Context: Reports: Other (Alcohol addiction) Associated Symptoms: Reports: Diaphoresis, Headaches, Weakness - Related Data Allergies/Adverse Reactions: Allergies Allergy/AdvReac Type Severity Reaction Status Date / Time shellfish derived Allergy Hives Verified 05/08/20 16:12 tuberculin,PPD,multi-puncture Allergy Difficulty Verified 05/08/20 16:12 Breathing Home Medications: Home Meds buPROPion [Wellbutrin SR] 300 mg PO DAILY 10/16/18 [History] cloNIDine [Catapres] 0.1 mg PO BEDTIME 10/21/18 [History] Omeprazole Magnesium [Prilosec Otc] 20 mg PO DAILY #15 tablet. 11/04/19 [Rx] Cyclobenzaprine [Flexeril] 10 mg PO TID PRN 05/08/20 [History] Past Medical History - Past Health History Medical/Surgical History: Denies Medical/Surgical History HEENT History: Reports: Impaired Vision Other HEENT History: glasses Cardiovascular History: Reports: Hypertension Other Cardiovascular History: HTN only for 1 year- resolved Respiratory History: Reports: COPD Gastrointestinal History: Reports: GERD Other Gastrointestinal History: Acid reflux- resolved 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, Urinary GROUP CIO History: Reports: Polycystic Ovaries Musculoskeletal History: Reports: Arthritis Neurological History: Reports: Seizure Other Neuro History: 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 Psychiatric History: Reports: Addiction, Anxiety, Depression Other Psychiatric History: Anxiety/depression Endocrine/Metabolic History: Reports: None - Infectious Disease History Other Infectious Disease History: Pt refused to answer - Past Surgical History Other HEENT Surgeries/Procedures: Pt refused to answer past medical history questions Musculoskeletal Surgical History: Reports: None Social & Family History - Family History Family Medical History: No Pertinent Family History - Tobacco Use Tobacco Use Status *Q: Current Every Day Tobacco User Years of Tobacco use: 25 Packs/Tins Daily: 1 - Caffeine Use Caffeine Use: Reports: Coffee Caffeine Use Comment: Off and on - Alcohol Use Alcohol Use History: Yes Days Per Week of Alcohol Use: 7 Number of Drinks Per Day: 10 Total Drinks Per Week: 70 Date of Last Drink: 05/08/20 Time of Last Drink: 10:00 Alcohol Use Frequency: Daily - Recreational Drug Use Recreational Drug Use: No - Living Situation & Occupation Living situation: Reports: , with Significant Other, Other (with 2 friends) Occupation: Unemployed H&P Review of Systems - Review of Systems: Review Of Systems: See Below General: Reports: Weakness, Diaphoresis, Decreased Appetite HEENT: Reports: Headaches, Sinus Congestion Pulmonary: Reports: No Symptoms Cardiovascular: Reports: No Symptoms Gastrointestinal: Reports: Abdominal Pain 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: Reports: No Symptoms Musculoskeletal: Reports: No Symptoms Skin: Reports: Diaphoresis Psychiatric: Reports: No Symptoms Neurological: Reports: Dizziness, Tremors Hematologic/Lymphatic: Reports: Easy Bruising Immunologic: Reports: No Symptoms Exam - Exam Exam: See Below - Vital Signs Vital Signs: Last Vital Signs Temp 37.0 C 05/09/20 08:00 Pulse 80 05/09/20 08:00 Resp 20 05/09/20 08:00 BP 149/94 H 05/09/20 08:00 Pulse Ox 95 05/09/20 08:00 Weight: 94.529 kg - Exam Quality Assessment: Supplemental Oxygen. No: DVT Prophylaxis General: Alert, Oriented, Cooperative, Mild Distress, Other (Diaphoretic) HEENT: Conjunctiva Clear, EACs Clear, EOMI, Hearing Intact, Mucosa Moist & [place], PERRLA. No: Scleral Icterus Neck: Supple, Trachea Midline Lungs: Clear to Auscultation, Normal Respiratory Effort Cardiovascular: Regular Rate, Regular Rhythm GI/Abdominal Exam: Normal Bowel Sounds, No Distention, Tender (Right upper quadrant), Hepatomegaly (Firm liver edge felt at costal margin) (Female) Exam: Deferred Rectal (Female) Exam: Deferred Back Exam: Normal Inspection, Full Range of Motion Extremities: Normal Inspection, No Pedal Edema Skin: Warm, Intact, Moist, Ecchymosis (Lower abdomen) Neurological: Cranial Nerves Intact, Normal Speech Neuro Extensive - Mental Status: Alert, Oriented x3 Neuro Extensive - Motor, Sensory, Reflexes: CN II-XII Intact, Tremor Psychiatric: Alert, Normal Affect, Normal Mood - Patient Data Lab Results Last 24 hrs: Laboratory Results - last 24 hr 05/08/20 05/08/20 05/08/20 Range/Units 17:35 17:35 17:35 WBC 3.37 L (3.98-10.04) K/mm3 RBC 4.25 (3.98-5.22) M/mm3 Hgb 13.0 D (11.2-15.7) gm/dl Hct 40.1 (34.1-44.9) % MCV 94.4 (79.4-94.8) fl MCH 30.6 (25.6-32.2) pg MCHC 32.4 (32.2-35.5) g/dl RDW Std Deviation 46.2 (36.4-46.3) fL Plt Count 59 L (182-369) K/mm3 MPV 10.8 (9.4-12.3) fl Neut % (Auto) 56.6 (34.0-71.1) % Lymph % (Auto) 29.4 (19.3-51.7) % [place] % (Auto) 13.1 H (4.7-12.5) % Eos % (Auto) 0.6 L (0.7-5.8) Baso % (Auto) 0.3 (0.1-1.2) % Neut # (Auto) 1.91 (1.56-6.13) K/mm3 Lymph # (Auto) 0.99 L (1.18-3.74) K/mm3 [place] # (Auto) 0.44 H (0.24-0.36) K/mm3 Eos # (Auto) 0.02 L (0.04-0.36) K/mm3 Baso # (Auto) 0.01 (0.01-0.08) K/mm3 Manual Slide Review Abnormal smear PT 10.3 (9.7-12.0) SECONDS INR 0.96 Puncture Site ABG pH (7.35-7.45) ABG pCO2 (35.0-45.0) mmHg ABG pO2 (80.0-100.0) mmHg ABG HCO3 (22.0-26.0) meq/L ABG O2 Saturation (96.0-97.0) % ABG Base Excess (-2-2.0) Brown Test O2 Delivery Device FiO2 (21.00-100.00) % Sodium 139 (136-145) mEq/L Potassium 3.2 L (3.5-5.1) mEq/L Chloride 100 (98-107) mEq/L Carbon Dioxide 28 (21-32) mEq/L Anion Gap 14.2 (5-15) BUN 8 (7-18) mg/dL Creatinine 0.8 (0.55-1.02) mg/dL Est Cr Clr Drug Dosing TNP Estimated GFR (MDRD) > 60 (>60) mL/min BUN/Creatinine Ratio 10.0 L (14-18) Glucose 73 L (74-106) mg/dL Calcium 8.0 L (8.5-10.1) mg/dL Magnesium 2.4 (1.8-2.4) mg/dl Total Bilirubin 0.4 (0.2-1.0) mg/dL GGT 267 H (5-55) U/L AST 139 H (15-37) U/L ALT 143 H (14-59) U/L Alkaline Phosphatase 103 (46-116) U/L Total Protein 7.4 (6.4-8.2) g/dl Albumin 3.5 (3.4-5.0) g/dl Globulin 3.9 gm/dL Albumin/Globulin Ratio 0.9 L (1-2) Urine Color (Yellow) Urine Appearance (Clear) Urine pH (5.0-8.0) Ur Specific [place] (1.005-1.030) Urine Protein (Negative) Urine Glucose (UA) (Negative) Urine Ketones (Negative) Urine Occult Blood (Negative) Urine Nitrite (Negative) Urine Bilirubin (Negative) Urine Urobilinogen (0.2-1.0) Ur Leukocyte Esterase (Negative) U Hyaline Cast (Auto) (0-5) /lpf Urine RBC (0-5) /hpf Urine WBC (0-5) /hpf Ur Squamous Epith Cells (0-5) /hpf Amorphous Sediment (NOT SEEN) /hpf Urine Bacteria (FEW) /hpf Urine Mucus (FEW) /hpf Ethyl Alcohol 0.12 (0.00) gm% Ketones (0.0-0.3) mM SARS-CoV-2 RNA (CHAO) (NEGATIVE) 05/08/20 05/08/20 05/08/20 Range/Units 17:35 18:22 18:25 WBC (3.98-10.04) K/mm3 RBC (3.98-5.22) M/mm3 Hgb (11.2-15.7) gm/dl Hct (34.1-44.9) % MCV (79.4-94.8) fl MCH (25.6-32.2) pg MCHC (32.2-35.5) g/dl RDW Std Deviation (36.4-46.3) fL Plt Count (182-369) K/mm3 MPV (9.4-12.3) fl Neut % (Auto) (34.0-71.1) % Lymph % (Auto) (19.3-51.7) % [place] % (Auto) (4.7-12.5) % Eos % (Auto) (0.7-5.8) Baso % (Auto) (0.1-1.2) % Neut # (Auto) (1.56-6.13) K/mm3 Lymph # (Auto) (1.18-3.74) K/mm3 [place] # (Auto) (0.24-0.36) K/mm3 Eos # (Auto) (0.04-0.36) K/mm3 Baso # (Auto) (0.01-0.08) K/mm3 Manual Slide Review PT (9.7-12.0) SECONDS INR Puncture Site Rt radial ABG pH 7.41 (7.35-7.45) ABG pCO2 44.0 (35.0-45.0) mmHg ABG pO2 65.0 L (80.0-100.0) mmHg ABG HCO3 27.3 H (22.0-26.0) meq/L ABG O2 Saturation 87.6 L (96.0-97.0) % ABG Base Excess 2.7 H (-2-2.0) Brown Test Positive O2 Delivery Device Room air FiO2 0.00 L (21.00-100.00) % Sodium (136-145) mEq/L Potassium (3.5-5.1) mEq/L Chloride (98-107) mEq/L Carbon Dioxide (21-32) mEq/L Anion Gap (5-15) BUN (7-18) mg/dL Creatinine (0.55-1.02) mg/dL Est Cr Clr Drug Dosing Estimated GFR (MDRD) (>60) mL/min BUN/Creatinine Ratio (14-18) Glucose (74-106) mg/dL Calcium (8.5-10.1) mg/dL Magnesium (1.8-2.4) mg/dl Total Bilirubin (0.2-1.0) mg/dL GGT (5-55) U/L AST (15-37) U/L ALT (14-59) U/L Alkaline Phosphatase (46-116) U/L Total Protein (6.4-8.2) g/dl Albumin (3.4-5.0) g/dl Globulin gm/dL Albumin/Globulin Ratio (1-2) Urine Color (Yellow) Urine Appearance (Clear) Urine pH (5.0-8.0) Ur Specific [place] (1.005-1.030) Urine Protein (Negative) Urine Glucose (UA) (Negative) Urine Ketones (Negative) Urine Occult Blood (Negative) Urine Nitrite (Negative) Urine Bilirubin (Negative) Urine Urobilinogen (0.2-1.0) Ur Leukocyte Esterase (Negative) U Hyaline Cast (Auto) (0-5) /lpf Urine RBC (0-5) /hpf Urine WBC (0-5) /hpf Ur Squamous Epith Cells (0-5) /hpf Amorphous Sediment (NOT SEEN) /hpf Urine Bacteria (FEW) /hpf Urine Mucus (FEW) /hpf Ethyl Alcohol (0.00) gm% Ketones 0.02 (0.0-0.3) mM SARS-CoV-2 RNA (CHAO) Negative (NEGATIVE) 05/08/20 05/08/20 Range/Units 22:11 23:22 WBC (3.98-10.04) K/mm3 RBC (3.98-5.22) M/mm3 Hgb (11.2-15.7) gm/dl Hct (34.1-44.9) % MCV (79.4-94.8) fl MCH (25.6-32.2) pg MCHC (32.2-35.5) g/dl RDW Std Deviation (36.4-46.3) fL Plt Count (182-369) K/mm3 MPV (9.4-12.3) fl Neut % (Auto) (34.0-71.1) % Lymph % (Auto) (19.3-51.7) % [place] % (Auto) (4.7-12.5) % Eos % (Auto) (0.7-5.8) Baso % (Auto) (0.1-1.2) % Neut # (Auto) (1.56-6.13) K/mm3 Lymph # (Auto) (1.18-3.74) K/mm3 [place] # (Auto) (0.24-0.36) K/mm3 Eos # (Auto) (0.04-0.36) K/mm3 Baso # (Auto) (0.01-0.08) K/mm3 Manual Slide Review PT (9.7-12.0) SECONDS INR Puncture Site ABG pH (7.35-7.45) ABG pCO2 (35.0-45.0) mmHg ABG pO2 (80.0-100.0) mmHg ABG HCO3 (22.0-26.0) meq/L ABG O2 Saturation (96.0-97.0) % ABG Base Excess (-2-2.0) Brown Test O2 Delivery Device FiO2 (21.00-100.00) % Sodium (136-145) mEq/L Potassium (3.5-5.1) mEq/L Chloride (98-107) mEq/L Carbon Dioxide (21-32) mEq/L Anion Gap (5-15) BUN (7-18) mg/dL Creatinine (0.55-1.02) mg/dL Est Cr Clr Drug Dosing Estimated GFR (MDRD) (>60) mL/min BUN/Creatinine Ratio (14-18) Glucose (74-106) mg/dL Calcium (8.5-10.1) mg/dL Magnesium (1.8-2.4) mg/dl Total Bilirubin (0.2-1.0) mg/dL GGT (5-55) U/L AST (15-37) U/L ALT (14-59) U/L Alkaline Phosphatase (46-116) U/L Total Protein (6.4-8.2) g/dl Albumin (3.4-5.0) g/dl Globulin gm/dL Albumin/Globulin Ratio (1-2) Urine Color Yellow (Yellow) Urine Appearance Clear (Clear) Urine pH 7.0 (5.0-8.0) Ur Specific [place] > or = 1.030 (1.005-1.030) Urine Protein 3+ H (Negative) Urine Glucose (UA) Negative (Negative) Urine Ketones Negative (Negative) Urine Occult Blood 1+ H (Negative) Urine Nitrite Negative (Negative) Urine Bilirubin Negative (Negative) Urine Urobilinogen 0.2 (0.2-1.0) Ur Leukocyte Esterase Negative (Negative) U Hyaline Cast (Auto) 5-10 H (0-5) /lpf Urine RBC 10-20 H (0-5) /hpf Urine WBC 0-5 (0-5) /hpf Ur Squamous Epith Cells 5-10 H (0-5) /hpf Amorphous Sediment Moderate H (NOT SEEN) /hpf Urine Bacteria Moderate H (FEW) /hpf Urine Mucus Many H (FEW) /hpf Ethyl Alcohol (0.00) gm% Ketones 0.01 (0.0-0.3) mM SARS-CoV-2 RNA (CHAO) (NEGATIVE) Result Diagrams: 05/08/20 17:35 05/08/20 17:35 Sepsis Event Note - Evaluation Sepsis Screening Result: No Definite Risk - Focused Exam Vital Signs: Vital Signs Temp Pulse Resp BP Pulse Ox 05/09/20 08:00 37.0 C 80 20 149/94 H 95 05/09/20 04:00 36.2 C 73 18 136/84 95 05/09/20 00:00 36.8 C 96 21 H 137/91 H 94 L - Problem List (1) Alcohol withdrawal SNOMED Code(s): 804029286 ICD Code: F10.239 - ALCOHOL DEPENDENCE WITH WITHDRAWAL, UNSPECIFIED Status: Acute Priority: High Current Visit: Yes Qualifiers: Complication of substance-induced condition: uncomplicated Qualified Code(s): F10.230 - Alcohol dependence with withdrawal, uncomplicated (2) Thrombocytopenia concurrent with and due to alcoholism SNOMED Code(s): 96862243677363 ICD Code: D69.59 - OTHER SECONDARY THROMBOCYTOPENIA; F10.20 - ALCOHOL DEPENDENCE, UNCOMPLICATED Status: Chronic Priority: High Current Visit: Yes (3) Recurrent seizures SNOMED Code(s): 78407025, 42029493 ICD Code: G40.909 - EPILEPSY, UNSP, NOT INTRACTABLE, WITHOUT STATUS EPILEPTICUS Status: Chronic Priority: High Current Visit: Yes (4) Nicotine dependence with current use SNOMED Code(s): 101938363 ICD Code: F17.200 - NICOTINE DEPENDENCE, UNSPECIFIED, UNCOMPLICATED Status: Chronic Priority: Medium Current Visit: Yes (5) Elevated liver enzymes SNOMED Code(s): 082958543 ICD Code: R74.8 - ABNORMAL LEVELS OF OTHER SERUM ENZYMES Status: Acute Priority: High Current Visit: Yes Problem List Initiated/Reviewed/Updated: Yes Orders Last 24hrs: Active Orders 24 hr Category Date Time Status Patient Status [ADT] Routine ADT 05/08/20 20:26 Active CIWAA Assessment [RC] Q1H Care 05/08/20 21:00 Active Vital Signs [RC] Q4HR Care 05/08/20 21:59 Active Abdomen Ltd [US] Routine Exams 05/09/20 07:52 Ordered Chest 1V Frontal [CR] Stat Exams 05/08/20 17:26 Taken Folic Acid Med 05/09/20 09:00 Active 1 mg PO DAILY LORazepam [Ativan] Med 05/08/20 20:30 Active 1 mg IVPUSH Q1H PRN LORazepam [Ativan] Med 05/08/20 20:31 Active 1 mg IVPUSH Q2H PRN Lactated Ringers [Ringers, Lactated] 1,000 ml Med 05/08/20 20:30 Active IV ASDIRECTED Nicotine [Habitrol] Med 05/09/20 09:00 Active 14 mg TRDERM DAILY Ondansetron [Zofran] Med 05/08/20 20:20 Active 4 mg IVPUSH Q6H PRN Thiamine [Vitamin B-1] Med 05/09/20 21:00 Active 100 mg PO BEDTIME Thiamine [Vitamin B-1] Med 05/09/20 09:00 Active 100 mg PO DAILY chlordiazePOXIDE [Librium] Med 05/09/20 09:00 Active 10 mg PO TID cloNIDine [Catapres] Med 05/08/20 21:00 Active 0.1 mg PO BEDTIME Code Status [Resuscitation Status] Routine Resus Stat 05/09/20 03:30 Ordered Medication Orders Chlordiazepoxide HCl (Librium) 10 mg PO TID [facility] Last Admin: 05/09/20 08:49 Dose: 10 mg Documented by: TO Clonidine HCl (Catapres) 0.1 mg PO BEDTIME [facility] Last Admin: 05/08/20 20:46 Dose: 0.1 mg Documented by: CHRIS Folic Acid (Folic Acid) 1 mg PO DAILY [facility] Last Admin: 05/09/20 08:50 Dose: 1 mg Documented by: TO Lactated Ringer's (Ringers, Lactated) 1,000 mls @ 150 mls/hr IV ASDIRECTED [facility] Last Admin: 05/09/20 03:18 Dose: 150 mls/hr Documented by: Infusion: 05/09/20 03:18 Dose: 150 mls/hr Documented by: Admin: 05/08/20 20:43 Dose: 150 mls/hr Documented by: CHRIS Lorazepam (Ativan) 1 mg IVPUSH Q1H PRN; Protocol PRN Reason: Withdrawal Symptoms Last Admin: 05/09/20 08:48 Dose: 1 mg Documented by: Admin: 05/09/20 00:22 Dose: 1 mg Documented by: Admin: 05/08/20 20:57 Dose: 1 mg Documented by: CHRIS Lorazepam (Ativan) 1 mg IVPUSH Q2H PRN PRN Reason: Seizures Nicotine (Habitrol) 14 mg TRDERM DAILY [facility] Last Admin: 05/09/20 08:52 Dose: 14 mg Documented by: TO Ondansetron HCl (Zofran) 4 mg IVPUSH Q6H PRN PRN Reason: Nausea/Vomiting Last Admin: 05/09/20 08:49 Dose: 4 mg Documented by: Admin: 05/09/20 01:59 Dose: 4 mg Documented by: Admin: 05/08/20 20:32 Dose: 4 mg Documented by: CHRIS Thiamine HCl (Vitamin B-1) 100 mg PO DAILY [facility] Last Admin: 05/09/20 08:49 Dose: 100 mg Documented by: [id number] Thiamine HCl (Vitamin B-1) 100 mg PO BEDTIME [facility] Assessment/Plan Comment:: Patient is a 55-year-old lady who has been admitted as an inpatient due to her previous history of alcohol withdrawal seizures. The patient has previously failed outpatient treatment however, she says that she would like to go to rehab again. I think the patient would be appropriate for intensive inpatient rehabilitation. The patient also has an examination which is somewhat consistent with ascites and liver cirrhosis. I have ordered an upper abdomen ultrasound. The patient will also not have DVT prophylaxis as she does have thrombocytopenia due to the alcohol. The patient's liver enzymes are also elevated secondary to alcohol. She will be kept on the CIWA protocol. I have also ordered the patient to have seizure precautions as well. Repeat laboratory studies have been ordered. The patient has been encouraged to ambulate. Given the patient's history and current situation I suspect that the patient's prospects for continued sobriety is poor. - Mortality Measure Prognosis:: Good
[2020-05-09] MEDS ORDERED: Folic Acid 1 MG Tab PO SCH (09:00)
--- NOTE | 2020-05-09 09:46 | CR ---
Chest: Portable view of the chest was obtained. Comparison: Prior chest x-ray of 10/21/18. Heart size and mediastinum are normal. Lungs are clear with no acute parenchymal change. Bony structures show nothing acute. Slight scoliosis is noted which is most likely positional. Impression: 1. Nothing acute is seen on portable chest x-ray. Diagnostic code #1
[2020-05-09] MEDS ORDERED: Acetaminophen 325 MG Tab PO PRN (10:02)
[2020-05-09] MEDS ORDERED: Heparin Sodium 5,000 Units/ML Vial SUBCUT SCH (11:00)
[2020-05-09] MEDS: Pantoprazole 40 MG Vial IVPUSH SCH ×2 (11:03→22:17)
[2020-05-09] MEDS: buPROPion 150 MG Tab.SR PO SCH (11:03)
--- NOTE | 2020-05-09 14:02 | US ---
Limited abdominal ultrasound: Multiple real-time images of the upper right abdomen were obtained. Comparison: Prior CT abdomen and pelvis exam of 11/04/19. Findings: Liver is mildly enlarged as well as being echogenic compatible with fatty infiltration. Gallbladder contains no shadowing gallstones. No gallbladder wall thickening or biliary duct dilatation is appreciated. Right kidney shows no discrete hydronephrosis or mass. Right kidney has a length of 9.9 cm. Pancreas is poorly seen. Visualized portions appear grossly unremarkable. Proximal aorta shows no aneurysm. Impression: 1. Slightly enlarged liver with diffuse fatty infiltration. 2. No additional abnormality is appreciated on right upper quadrant abdominal ultrasound. 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
[2020-05-09] MEDS: cloNIDine 0.1 MG Tab PO SCH (20:16)
[2020-05-09] MEDS ORDERED: Thiamine 100 MG Tab PO SCH (21:00)
[2020-05-10] MEDS: Lactated Ringers 1,000 ML IV SCH (02:55)
[2020-05-10] MEDS: LORazepam 2 MG/ML SDV IVPUSH PRN ×2 (04:47→08:19)
[2020-05-10] MEDS: Nicotine 14 MG/24 Hr Patch TRDERM SCH (08:18)
[2020-05-10] MEDS: Thiamine 100 MG Tab PO SCH (08:18)
[2020-05-10] MEDS: Folic Acid 1 MG Tab PO SCH (08:18)
[2020-05-10] MEDS: buPROPion 150 MG Tab.SR PO SCH (08:18)
[2020-05-10] MEDS: chlordiazePOXIDE 10 MG Cap PO SCH ×3 (08:18→20:31)
[2020-05-10] MEDS ORDERED: Pantoprazole 40 MG Vial IVPUSH SCH (09:00)
[2020-05-10] MEDS: Ondansetron 4 MG/2 ML SDV IVPUSH PRN (13:14)
--- NOTE | 2020-05-10 17:45 | PCM.PN ---
- General Info Date of Service: 05/10/20 Admission Dx/Problem (Free Text): Admission Diagnosis/Problem Admission Diagnosis/Problem Alcohol use disorder Subjective Update: 55-year-old female with history of alcoholism and failed outpatient treatment for her alcohol abuse was admitted yesterday for intoxication and alcohol withdrawal with plans on placement in an inpatient rehab alcohol center. Patient is resting comfortably without any complaints today. She is on Librium 10 mg 3 times daily and did receive 1 mg of Ativan early this morning. Ultrasound of the abdomen showed a slightly enlarged liver with Fuhs fatty infiltration. Otherwise, no other abnormality found on right upper quadrant abdominal ultrasound. Liver enzymes have improved with both AST and ALT decreasing to 93 and 105, respectively. Functional Status: Reports: Pain Controlled - Review of Systems General: Reports: No Symptoms HEENT: Reports: No Symptoms Pulmonary: Reports: No Symptoms Cardiovascular: Reports: No Symptoms Gastrointestinal: Reports: No Symptoms Musculoskeletal: Reports: No Symptoms - Patient Data Vitals - Most Recent: Last Vital Signs Temp 98.0 F 05/10/20 16:00 Pulse 104 H 05/10/20 04:00 Resp 18 05/10/20 16:00 BP 161/102 H 05/10/20 16:00 Pulse Ox 95 05/10/20 16:00 Weight - Most Recent: 205 lb 6.4 oz I&O - Last 24 Hours: Intake & Output 05/10/20 05/10/20 05/10/20 06:59 14:59 22:59 Intake Total 2960 500 15 Output Total 2600 Balance 360 500 15 Lab Results Last 24 Hours: Laboratory Results - last 24 hr 05/10/20 05/10/20 Range/Units 05:50 05:50 WBC 2.97 L (3.98-10.04) K/mm3 RBC 4.23 (3.98-5.22) M/mm3 Hgb 12.9 (11.2-15.7) gm/dl Hct 40.2 (34.1-44.9) % MCV 95.0 H (79.4-94.8) fl MCH 30.5 (25.6-32.2) pg MCHC 32.1 L (32.2-35.5) g/dl RDW Std Deviation 46.1 (36.4-46.3) fL Plt Count 47 L (182-369) K/mm3 MPV 12.3 (9.4-12.3) fl Neut % (Auto) 58.3 (34.0-71.1) % Lymph % (Auto) 25.9 (19.3-51.7) % [place] % (Auto) 13.8 H (4.7-12.5) % Eos % (Auto) 1.7 (0.7-5.8) Baso % (Auto) 0.3 (0.1-1.2) % Neut # (Auto) 1.73 (1.56-6.13) K/mm3 Lymph # (Auto) 0.77 L (1.18-3.74) K/mm3 [place] # (Auto) 0.41 H (0.24-0.36) K/mm3 Eos # (Auto) 0.05 (0.04-0.36) K/mm3 Baso # (Auto) 0.01 (0.01-0.08) K/mm3 Manual Slide Review Abnormal smear Sodium 140 (136-145) mEq/L Potassium 3.4 L (3.5-5.1) mEq/L Chloride 104 (98-107) mEq/L Carbon Dioxide 25 (21-32) mEq/L Anion Gap 14.4 (5-15) BUN 5 L (7-18) mg/dL Creatinine 0.9 (0.55-1.02) mg/dL Est Cr Clr Drug Dosing 64.30 mL/min Estimated GFR (MDRD) > 60 (>60) mL/min BUN/Creatinine Ratio 5.6 L (14-18) Glucose 101 (74-106) mg/dL Calcium 8.6 (8.5-10.1) mg/dL Magnesium 2.2 (1.8-2.4) mg/dl Total Bilirubin 0.5 (0.2-1.0) mg/dL AST 93 H (15-37) U/L ALT 105 H (14-59) U/L Alkaline Phosphatase 80 (46-116) U/L Total Protein 6.7 (6.4-8.2) g/dl Albumin 3.0 L (3.4-5.0) g/dl Globulin 3.7 gm/dL Albumin/Globulin Ratio 0.8 L (1-2) Med Orders - Current: Current Medications Acetaminophen (Tylenol) 650 mg PO Q4H PRN PRN Reason: Pain (Mild 1-3)/fever Bupropion HCl (Wellbutrin Sr) 300 mg PO DAILY [facility] Last Admin: 05/10/20 08:18 Dose: 300 mg Documented by: Chlordiazepoxide HCl (Librium) 10 mg PO TID [facility] Last Admin: 05/10/20 13:59 Dose: 10 mg Documented by: Clonidine HCl (Catapres) 0.1 mg PO BEDTIME [facility] Last Admin: 05/09/20 20:16 Dose: 0.1 mg Documented by: Enoxaparin Sodium (Lovenox) 40 mg SUBCUT BEDTIME [facility] Folic Acid (Folic Acid) 1 mg PO DAILY [facility] Last Admin: 05/10/20 08:18 Dose: 1 mg Documented by: Lorazepam (Ativan) 1 mg IVPUSH Q1H PRN; Protocol PRN Reason: Withdrawal Symptoms Last Admin: 05/10/20 08:19 Dose: 1 mg Documented by: Lorazepam (Ativan) 1 mg IVPUSH Q2H PRN PRN Reason: Seizures Miscellaneous Information (Remove Patch) 1 ea TRDERM DAILY [facility] Last Admin: 05/10/20 08:30 Dose: 1 ea Documented by: Nicotine (Habitrol) 14 mg TRDERM DAILY [facility] Last Admin: 05/10/20 08:18 Dose: 14 mg Documented by: Ondansetron HCl (Zofran) 4 mg IVPUSH Q6H PRN PRN Reason: Nausea/Vomiting Last Admin: 05/10/20 13:14 Dose: 4 mg Documented by: Pantoprazole Sodium (Protonix) 40 mg PO BID [facility] Thiamine HCl (Vitamin B-1) 100 mg PO DAILY [facility] Last Admin: 05/10/20 08:18 Dose: 100 mg Documented by: Discontinued Medications Chlordiazepoxide HCl (Librium) 5 mg PO TID [facility] Chlordiazepoxide HCl (Librium) 10 mg PO ONETIME ONE Stop: 05/08/20 23:01 Last Admin: 05/08/20 23:15 Dose: 10 mg Documented by: Clonidine HCl (Catapres) 0.1 mg PO BEDTIME [facility] Last Admin: 05/08/20 20:46 Dose: 0.1 mg Documented by: Enoxaparin Sodium (Lovenox) 40 mg SUBCUT Q12H [facility] Folic Acid (Folic Acid) 1 mg IV ONETIME ONE Stop: 05/08/20 17:06 Last Admin: 05/08/20 18:37 Dose: Not Given Documented by: Folic Acid (Folic Acid) 1 mg PO ONETIME ONE Stop: 05/08/20 18:37 Last Admin: 05/08/20 18:41 Dose: 1 mg Documented by: Folic Acid (Folic Acid) 1 mg PO DAILY [facility] Heparin Sodium (Porcine) (Heparin Sodium) 5,000 units SUBCUT Q8H [facility] Lactated Ringer's (Ringers, Lactated) 1,000 mls @ 999 mls/hr IV .BOLUS ONE Stop: 05/08/20 18:05 Last Admin: 05/08/20 17:31 Dose: 999 mls/hr Documented by: Thiamine HCl 100 mg/ Sodium (Chloride) 101 mls @ 202 mls/hr IV ONETIME ONE Stop: 05/08/20 17:06 Last Admin: 05/08/20 17:31 Dose: 202 mls/hr Documented by: Lactated Ringer's (Ringers, Lactated) 1,000 mls @ 150 mls/hr IV ASDIRECTED [facility] Last Admin: 05/10/20 02:55 Dose: 150 mls/hr Documented by: Lorazepam (Ativan) 1 mg IVPUSH ONETIME ONE Stop: 05/08/20 17:08 Last Admin: 05/08/20 17:31 Dose: 1 mg Documented by: Ondansetron HCl (Zofran) Confirm Administered Dose 4 mg .ROUTE .STK-MED ONE Stop: 05/08/20 20:21 Last Admin: 05/08/20 20:31 Dose: 4 mg Documented by: Pantoprazole Sodium (Protonix Iv) 40 mg IVPUSH Q12H [facility] Last Admin: 05/09/20 22:17 Dose: 40 mg Documented by: Pantoprazole Sodium (Protonix Iv) 40 mg IVPUSH Q12H [facility] Last Admin: 05/10/20 08:17 Dose: 40 mg Documented by: Potassium Chloride (Klor-Con M20) 40 meq PO ONETIME ONE Stop: 05/08/20 19:04 Last Admin: 05/08/20 19:41 Dose: 40 meq Documented by: Thiamine HCl (Vitamin B-1) 100 mg PO BEDTIME [facility] - Exam Quality Assessment: No: Supplemental Oxygen General: Alert, Oriented HEENT: Pupils Equal, Mucous Membr. Moist/[place] Neck: Supple Lungs: Clear to Auscultation, Normal Respiratory Effort Cardiovascular: Regular Rate, Regular Rhythm GI/Abdominal Exam: Normal Bowel Sounds, Soft, Non-Tender, No Distention, No Abnormal Bruit Extremities: Normal Inspection, Normal Capillary Refill Skin: Warm, Dry, Intact Psy/Mental Status: Alert, Normal Affect, Normal Mood Sepsis Event Note - Evaluation Sepsis Screening Result: No Definite Risk - Focused Exam Vital Signs: Vital Signs Temp Resp BP Pulse Ox 05/10/20 16:00 98.0 F 18 161/102 H 95 05/10/20 08:00 98.1 F 18 165/109 H 95 - Problem List & Annotations (1) Alcohol withdrawal SNOMED Code(s): 990910090 Code(s): F10.239 - ALCOHOL DEPENDENCE WITH WITHDRAWAL, UNSPECIFIED Status: Acute Priority: High Current Visit: Yes Qualifiers: Complication of substance-induced condition: uncomplicated Qualified Code(s): F10.230 - Alcohol dependence with withdrawal, uncomplicated (2) Elevated liver enzymes SNOMED Code(s): 739088803 Code(s): R74.8 - ABNORMAL LEVELS OF OTHER SERUM ENZYMES Status: Acute Priority: High Current Visit: Yes (3) Nicotine dependence with current use SNOMED Code(s): 092128922 Code(s): F17.200 - NICOTINE DEPENDENCE, UNSPECIFIED, UNCOMPLICATED Status: Chronic Priority: Medium Current Visit: Yes (4) Thrombocytopenia concurrent with and due to alcoholism SNOMED Code(s): 78731998640368 Code(s): D69.59 - OTHER SECONDARY THROMBOCYTOPENIA; F10.20 - ALCOHOL DEPENDENCE, UNCOMPLICATED Status: Chronic Priority: High Current Visit: Yes - Problem List Review Problem List Initiated/Reviewed/Updated: Yes - My Orders Last 24 Hours: My Active Orders 05/10/20 13:10 PT Evaluation and Treatment [CONS] Routine 05/10/20 21:00 Pantoprazole [ProTONIX] 40 mg PO BID - Plan Plan:: 05/09/2020 Patient is a 55-year-old lady who has been admitted as an inpatient due to her previous history of alcohol withdrawal seizures. The patient has previously failed outpatient treatment however, she says that she would like to go to rehab again. I think the patient would be appropriate for intensive inpatient rehabilitation. The patient also has an examination which is somewhat consistent with ascites and liver cirrhosis. I have ordered an upper abdomen ultrasound. The patient will also not have DVT prophylaxis as she does have thrombocytopenia due to the alcohol. The patient's liver enzymes are also elevated secondary to alcohol. She will be kept on the CIWA protocol. I have also ordered the patient to have seizure precautions as well. Repeat laboratory studies have been ordered. The patient has been encouraged to ambulate. Given the patient's history and current situation I suspect that the patient's prospects for continued sobriety is poor. 05/10/2020 55-year-old female with history of alcoholism and failed outpatient treatment for her alcohol abuse was admitted yesterday for intoxication and alcohol withdrawal with plans on placement in an inpatient rehab alcohol center. Patient is resting comfortably without any complaints today. She is on Librium 10 mg 3 times daily and did receive 1 mg of Ativan early this morning. Ultrasound of the abdomen showed a slightly enlarged liver with Fuhs fatty infiltration. Otherwise, no other abnormality found on right upper quadrant abdominal ultrasound. Liver enzymes have improved with both AST and ALT decreasing to 93 and 105, respectively. Patient is having an uneventful detox. Plans are to discharge her to inpatient rehabilitation tomorrow on Librium for 2 more days. We will likely decrease it to 10 mg twice daily for 2 days at discharge.
[2020-05-10] MEDS: Pantoprazole 40 MG Tab.CR PO SCH (20:31)
[2020-05-10] MEDS: cloNIDine 0.1 MG Tab PO SCH (20:31)
[2020-05-10] MEDS ORDERED: Enoxaparin 40 MG/0.4 ML Syringe SUBCUT SCH ×2 (21:00)
[2020-05-10] MEDS ORDERED: Loperamide 2 MG Cap PO ONE (21:00)
[2020-05-11] MEDS: buPROPion 150 MG Tab.SR PO SCH (08:00)
[2020-05-11] MEDS: Nicotine 14 MG/24 Hr Patch TRDERM SCH (08:00)
[2020-05-11] MEDS: Pantoprazole 40 MG Tab.CR PO SCH (08:00)
[2020-05-11] MEDS: chlordiazePOXIDE 10 MG Cap PO SCH (08:00)
[2020-05-11] MEDS: Folic Acid 1 MG Tab PO SCH (08:00)
[2020-05-11] MEDS: Thiamine 100 MG Tab PO SCH (08:00)
--- NOTE | 2020-05-11 08:30 | PCM.DCSUM1 ---
Discharge Summary - Hospital Course HPI Initial Comments: The patient is a 55-year-old lady who has a history of chronic alcohol addiction has presented to the emergency department with a complaint of withdrawal type symptoms. The patient reports that she does have seizures when not drinking. The patient reports that she has been drinking 1/5 of hard liquor per day. She also has reported that she has been to rehabilitation before. And she is currently having withdrawal symptoms and does want to get some help. The patient says that she is having abdominal pain, bloating and heartburn type symptoms. Patient also says that she knows that her liver enzymes have been elevated in the past. Her last alcohol consumption was reportedly in the morning of May 08, 2020. Assessment/Plan Comment:: Patient is a 55-year-old lady who has been admitted as an inpatient due to her previous history of alcohol withdrawal seizures. The patient has previously failed outpatient treatment however, she says that she would like to go to rehab again. I think the patient would be appropriate for intensive inpatient rehabilitation. The patient also has an examination which is somewhat consistent with ascites and liver cirrhosis. I have ordered an upper abdomen ultrasound. The patient will also not have DVT prophylaxis as she does have thrombocytopenia due to the alcohol. The patient's liver enzymes are also elevated secondary to alcohol. She will be kept on the CIWA protocol. I have also ordered the patient to have seizure precautions as well. Repeat laboratory studies have been ordered. The patient has been encouraged to ambulate. Given the patient's history and current situation I suspect that the patient's prospects for continued sobriety is poor. Diagnosis: Stroke: No - Discharge Data Discharge Date: 05/11/20 Discharge Disposition: DC/Tfer to Other Condition: Good - Referral to Home Health Primary Care Physician: Charleen Larios NP - Discharge Diagnosis/Problem(s) (1) Alcohol withdrawal SNOMED Code(s): 499619407 ICD Code: F10.239 - ALCOHOL DEPENDENCE WITH WITHDRAWAL, UNSPECIFIED Status: Acute Priority: High Qualifiers: Complication of substance-induced condition: uncomplicated Qualified Code(s): F10.230 - Alcohol dependence with withdrawal, uncomplicated (2) Elevated liver enzymes SNOMED Code(s): 710306260 ICD Code: R74.8 - ABNORMAL LEVELS OF OTHER SERUM ENZYMES Status: Acute Priority: High (3) Nicotine dependence with current use SNOMED Code(s): 674924229 ICD Code: F17.200 - NICOTINE DEPENDENCE, UNSPECIFIED, UNCOMPLICATED Status: Chronic Priority: Medium (4) Thrombocytopenia concurrent with and due to alcoholism SNOMED Code(s): 49405592030984 ICD Code: D69.59 - OTHER SECONDARY THROMBOCYTOPENIA; F10.20 - ALCOHOL DEPENDENCE, UNCOMPLICATED Status: Chronic Priority: High - Patient Summary/Data Consults: Consultations 05/10/20 13:10 PT Evaluation and Treatment [CONS] Routine Hospital Course: 05/09/2020 Patient is a 55-year-old lady who has been admitted as an inpatient due to her previous history of alcohol withdrawal seizures. The patient has previously failed outpatient treatment however, she says that she would like to go to rehab again. I think the patient would be appropriate for intensive inpatient rehabilitation. The patient also has an examination which is somewhat consistent with ascites and liver cirrhosis. I have ordered an upper abdomen ultrasound. The patient will also not have DVT prophylaxis as she does have thrombocytopenia due to the alcohol. The patient's liver enzymes are also elevated secondary to alcohol. She will be kept on the CIWA protocol. I have also ordered the patient to have seizure precautions as well. Repeat laboratory studies have been ordered. The patient has been encouraged to ambulate. Given the patient's history and current situation I suspect that the patient's prospects for continued sobriety is poor. 05/10/2020 55-year-old female with history of alcoholism and failed outpatient treatment for her alcohol abuse was admitted yesterday for intoxication and alcohol withdrawal with plans on placement in an inpatient rehab alcohol center. Patient is resting comfortably without any complaints today. She is on Librium 10 mg 3 times daily and did receive 1 mg of Ativan early this morning. Ultrasound of the abdomen showed a slightly enlarged liver with Fuhs fatty infiltration. Otherwise, no other abnormality found on right upper quadrant abdominal ultrasound. Liver enzymes have improved with both AST and ALT decreasing to 93 and 105, respectively. Patient is having an uneventful detox. Plans are to discharge her to inpatient rehabilitation tomorrow on Librium for 2 more days. We will likely decrease it to 10 mg twice daily for 2 days at discharge. 05/11/2020 Patient is doing well. She is on Librium 10 mg 3 times a day and has not needed any more Ativan. Patient states that she is feeling well without any nausea, vomiting, chest pain. She will be discharged for inpatient rehabilitation today. - Patient Instructions Diet: No Alcoholic Beverages Activity: As Tolerated Driving: Do Not Drive Showering/Bathing: May Shower Notify Provider of: Increased Pain, Nausea and/or Vomiting Other/Special Instructions: Follow-up with primary care provider within 2 weeks. duodenal and - Discharge Plan *PRESCRIPTION DRUG MONITORING PROGRAM REVIEWED*: No *COPY OF PRESCRIPTION DRUG MONITORING REPORT IN PATIENT [place]ULAIM[place]: No Prescriptions/Med Rec: cloNIDine [Catapres] 0.1 mg PO BEDTIME #30 tablet cloNIDine [Catapres] 0.1 mg PO BEDTIME #30 tab Folic Acid 1 mg PO DAILY #30 tablet Nicotine [Habitrol] 14 mg TRDERM DAILY #30 patch chlordiazePOXIDE [Librium] 10 mg PO TID #9 cap Omeprazole Magnesium [Prilosec Otc] 20 mg PO DAILY #30 tablet. Thiamine [Vitamin B-1] 100 mg PO DAILY #30 tablet buPROPion [Wellbutrin SR] 300 mg PO DAILY #60 tab Home Medications: Home Meds Folic Acid 1 mg PO DAILY #30 tablet 05/11/20 [Rx] Nicotine [Habitrol] 14 mg TRDERM DAILY #30 patch 05/11/20 [Rx] Omeprazole Magnesium [Prilosec Otc] 20 mg PO DAILY #30 tablet. 05/11/20 [Rx] Remove Patch 1 ea TRDERM DAILY each 05/11/20 [Rx] Thiamine [Vitamin B-1] 100 mg PO DAILY #30 tablet 05/11/20 [Rx] buPROPion [Wellbutrin SR] 300 mg PO DAILY #60 tab 05/11/20 [Rx] chlordiazePOXIDE [Librium] 10 mg PO TID #9 cap 05/11/20 [Rx] cloNIDine [Catapres] 0.1 mg PO BEDTIME #30 tab 05/11/20 [Rx] cloNIDine [Catapres] 0.1 mg PO BEDTIME #30 tablet 05/11/20 [Rx] Patient Handouts: Alcohol Abuse and Dependence Information, Adult, Steps to Quit Smoking, Alcohol Withdrawal Syndrome, [id number] Forms: ED Department Discharge Referrals: Charleen Larios [employer] OFFICER [Primary Care Provider] - - Discharge Summary/Plan Comment DC Time >30 min.: Yes - General Info Date of Service: 05/11/20 Admission Dx/Problem (Free Text: Admission Diagnosis/Problem Admission Diagnosis/Problem Alcohol use disorder Functional Status: Reports: Pain Controlled - Review of Systems General: Reports: No Symptoms HEENT: Reports: No Symptoms Cardiovascular: Reports: No Symptoms Gastrointestinal: Reports: No Symptoms - Patient Data Vitals - Most Recent: Last Vital Signs Temp 98.1 F 05/11/20 08:12 Pulse 92 05/11/20 08:12 Resp 20 05/11/20 08:12 BP 168/92 H 05/11/20 08:12 Pulse Ox 94 L 05/11/20 08:12 Weight - Most Recent: 198 lb I&O - Last 24 hours: Intake & Output 05/10/20 05/11/20 05/11/20 22:59 06:59 14:59 Intake Total 615 Balance 615 Med Orders - Current: Current Medications Acetaminophen (Tylenol) 650 mg PO Q4H PRN PRN Reason: Pain (Mild 1-3)/fever Bupropion HCl (Wellbutrin Sr) 300 mg PO DAILY [facility] Last Admin: 05/11/20 08:00 Dose: 300 mg Documented by: Chlordiazepoxide HCl (Librium) 10 mg PO TID [facility] Last Admin: 05/11/20 08:00 Dose: 10 mg Documented by: Clonidine HCl (Catapres) 0.1 mg PO BEDTIME [facility] Last Admin: 05/10/20 20:31 Dose: 0.1 mg Documented by: Enoxaparin Sodium (Lovenox) 40 mg SUBCUT BEDTIME [facility] Last Admin: 05/10/20 20:33 Dose: 40 mg Documented by: Folic Acid (Folic Acid) 1 mg PO DAILY [facility] Last Admin: 05/11/20 08:00 Dose: 1 mg Documented by: Lorazepam (Ativan) 1 mg IVPUSH Q1H PRN; Protocol PRN Reason: Withdrawal Symptoms Last Admin: 05/10/20 08:19 Dose: 1 mg Documented by: Lorazepam (Ativan) 1 mg IVPUSH Q2H PRN PRN Reason: Seizures Miscellaneous Information (Remove Patch) 1 ea TRDERM DAILY [facility] Last Admin: 05/11/20 08:00 Dose: 1 ea Documented by: Nicotine (Habitrol) 14 mg TRDERM DAILY [facility] Last Admin: 05/11/20 08:00 Dose: 14 mg Documented by: Ondansetron HCl (Zofran) 4 mg IVPUSH Q6H PRN PRN Reason: Nausea/Vomiting Last Admin: 05/10/20 13:14 Dose: 4 mg Documented by: Pantoprazole Sodium (Protonix) 40 mg PO BID [facility] Last Admin: 05/11/20 08:00 Dose: 40 mg Documented by: Thiamine HCl (Vitamin B-1) 100 mg PO DAILY [facility] Last Admin: 05/11/20 08:00 Dose: 100 mg Documented by: Discontinued Medications Chlordiazepoxide HCl (Librium) 5 mg PO TID [facility] Chlordiazepoxide HCl (Librium) 10 mg PO ONETIME ONE Stop: 05/08/20 23:01 Last Admin: 05/08/20 23:15 Dose: 10 mg Documented by: Clonidine HCl (Catapres) 0.1 mg PO BEDTIME [facility] Last Admin: 05/08/20 20:46 Dose: 0.1 mg Documented by: Enoxaparin Sodium (Lovenox) 40 mg SUBCUT Q12H [facility] Folic Acid (Folic Acid) 1 mg IV ONETIME ONE Stop: 05/08/20 17:06 Last Admin: 05/08/20 18:37 Dose: Not Given Documented by: Folic Acid (Folic Acid) 1 mg PO ONETIME ONE Stop: 05/08/20 18:37 Last Admin: 05/08/20 18:41 Dose: 1 mg Documented by: Folic Acid (Folic Acid) 1 mg PO DAILY [facility] Heparin Sodium (Porcine) (Heparin Sodium) 5,000 units SUBCUT Q8H [facility] Lactated Ringer's (Ringers, Lactated) 1,000 mls @ 999 mls/hr IV .BOLUS ONE Stop: 05/08/20 18:05 Last Admin: 05/08/20 17:31 Dose: 999 mls/hr Documented by: Thiamine HCl 100 mg/ Sodium (Chloride) 101 mls @ 202 mls/hr IV ONETIME ONE Stop: 05/08/20 17:06 Last Admin: 05/08/20 17:31 Dose: 202 mls/hr Documented by: Lactated Ringer's (Ringers, Lactated) 1,000 mls @ 150 mls/hr IV ASDIRECTED [facility] Last Admin: 05/10/20 02:55 Dose: 150 mls/hr Documented by: Loperamide HCl (Imodium) 4 mg PO ONETIME ONE Stop: 05/10/20 21:01 Last Admin: 05/10/20 21:15 Dose: 4 mg Documented by: Lorazepam (Ativan) 1 mg IVPUSH ONETIME ONE Stop: 05/08/20 17:08 Last Admin: 05/08/20 17:31 Dose: 1 mg Documented by: Ondansetron HCl (Zofran) Confirm Administered Dose 4 mg .ROUTE .STK-MED ONE Stop: 05/08/20 20:21 Last Admin: 05/08/20 20:31 Dose: 4 mg Documented by: Pantoprazole Sodium (Protonix Iv) 40 mg IVPUSH Q12H [facility] Last Admin: 05/09/20 22:17 Dose: 40 mg Documented by: Pantoprazole Sodium (Protonix Iv) 40 mg IVPUSH Q12H [facility] Last Admin: 05/10/20 08:17 Dose: 40 mg Documented by: Potassium Chloride (Klor-Con M20) 40 meq PO ONETIME ONE Stop: 05/08/20 19:04 Last Admin: 05/08/20 19:41 Dose: 40 meq Documented by: Thiamine HCl (Vitamin B-1) 100 mg PO BEDTIME [facility] - Exam Quality Assessment: Denies: Supplemental Oxygen General: Reports: Alert, Oriented HEENT: Reports: Pupils Equal, Mucous Membr. Moist/[place] Neck: Reports: Supple Lungs: Reports: Clear to Auscultation, Normal Respiratory Effort Cardiovascular: Reports: Regular Rate, Regular Rhythm GI/Abdominal Exam: Normal Bowel Sounds, Soft, Non-Tender, No Distention Extremities: Normal Inspection, Normal Range of Motion, Non-Tender, No Pedal Edema, Normal Capillary Refill Skin: Reports: Warm, Dry, Intact Psy/Mental Status: Reports: Alert, Normal Affect, Normal Mood
== END 2020-05-11 09:11 | disposition other institution (70) | DRG 897 ==
LOC: JD.ED 15:58 → JD.ICU 19:27
PROVIDERS: ADMIT Family Medicine; ATTEND Internal Medicine
DX: F10.230 Alcohol dependence with withdrawal, uncomplicated (principal); R18.8 Other ascites; F17.200 Nicotine dependence, unspecified, uncomplicated; D69.59 Other secondary thrombocytopenia; H54.7 Unspecified visual loss; I10 Essential (primary) hypertension; M19.90 Unspecified osteoarthritis, unspecified site; Z20.822 Contact with and (suspected) exposure to COVID-19; F41.9 Anxiety disorder, unspecified; F32.9 Major depressive disorder, single episode, unspecified; R33.9 Retention of urine, unspecified; J44.9 Chronic obstructive pulmonary disease, unspecified; G40.909 Epilepsy, unspecified, not intractable, without status epilepticus; K76.0 Fatty (change of) liver, not elsewhere classified; K74.60 Unspecified cirrhosis of liver; Z91.013 Allergy to seafood; Z88.8 Allergy status to other drugs, medicaments and biological substances; Z79.899 Other long term (current) drug therapy
CPT/HCPCS: 36415; 36600; 71045; 71045-26; 76705; 76705-26; 80048; 80053; 80179; 81001; 82009; 82803; 82977; 83735; 85025; 85610; 96365; 96375; 97161-GP; 97597-GP; 99284; 99285-25; A9270-GY; C9113; J1650; J2060; J2405; J3411; J7120; U0002